=== PATIENT | female | born 1945 | race Caucasian/White ===

== ENCOUNTER 2018-11-03 06:20 | Inpatient (IN) | payer MEDICARE ==
[2018-11-03] MEDS ORDERED: methylPREDNISolone SOD SUCCI 125 MG/2 ML VIAL IV STA (06:25)
[2018-11-03 06:39] LABS: Basophils # (A) 0.1 k/uL (0-0.2); Basophils % (A) 1 %; Eosinophils # (A) 0.3 k/uL (0-0.7); Eosinophils % (A) 3 %; HCT 39.3 % (34.0-46.0); HGB 12.9 gm/dL (11.4-16.0); Lymphocytes # (A) 2.8 k/uL (1.0-4.8); Lymphocytes % (A) 22 %; MCH 29.5 pg (25.0-35.0); MCHC 32.9 g/dL (31.0-37.0); MCV 89.6 fL (80.0-100.0); Mean Platelet Volume 7.4; Monocytes # (A) 0.6 k/uL (0-1.0); Monocytes % (A) 5 %; Neutrophils # (A) 8.7 k/uL (1.3-7.7); Neutrophils % (A) 69 %; Platelet Count 221 k/uL (150-450); RBC 4.39 m/uL (3.80-5.40); RDW 14.7 % (11.5-15.5); WBC 12.6 k/uL (3.8-10.6)
[2018-11-03] MEDS ORDERED: IPRATROPIUM-ALBUTEROL 3 ML NEB INHALATION STA (06:41)
--- NOTE | 2018-11-03 06:45 | ED ---
General Adult HPI <Pavel Severino - Last Filed: 11/03/18 07:42> - General Source: patient, EMS, RN notes reviewed Mode of arrival: EMS Limitations: no limitations <Yvan Bustillo - Last Filed: 11/03/18 07:59> - General Chief complaint: Shortness of Breath Stated complaint: JOSH Time Seen by Provider: 11/03/18 06:25 - History of Present Illness Initial comments: 73-year-old female with a past medical history of diabetes mellitus, hyperlipidemia, hypertension, new diagnosis of COPD presents to the emergency department for shortness of breath. Patient states that around 2 AM or about 4 hours ago she started to feel short of breath. States she feels like she cannot get a full breath. Denies any chest pain. States that since that time she has been coughing as well but before that has not been coughing. Denies any fevers or chills. States her doctor recently told her she has COPD but she states she did not have any inhalers at home yet.Patient has no other complaints at this time including chest pain, abdominal pain, nausea or vomiting, headache, or visual changes. (Yvan Bustillo) - Related Data Home Medications Medication Instructions Recorded Confirmed Atorvastatin [Lipitor] 40 mg PO DAILY 11/03/18 11/03/18 Benazepril/Hydrochlorothiazide 1 tab PO DAILY 11/03/18 11/03/18 [Benazepril-Hctz 10-12.5 mg Tab] Cholecalciferol [Vitamin D3 (25 1,000 unit PO DAILY 11/03/18 11/03/18 Mcg = 1000 Iu)] Ibuprofen [Motrin] 800 mg PO TID PRN 11/03/18 11/03/18 Omeprazole 20 mg PO DAILY PRN 11/03/18 11/03/18 Solifenacin Succinate [Vesicare] 10 mg PO DAILY 11/03/18 11/03/18 metFORMIN HCL [Glucophage] 500 mg PO HS 11/03/18 11/03/18 Allergies Allergy/AdvReac Type Severity Reaction Status Date / Time No Known Allergies Allergy Verified 11/03/18 07:24 Review of Systems ROS Other: All systems not noted in ROS Statement are negative. <Pavel Severino - Last Filed: 11/03/18 07:42> ROS Other: All systems not noted in ROS Statement are negative. <Yvan Bustillo - Last Filed: 11/03/18 07:59> ROS Statement: Those systems with pertinent positive or pertinent negative responses have been documented in the HPI. Past Medical History Past Medical History: COPD, Diabetes Mellitus, Hyperlipidemia, Hypertension History of Any Multi-Drug Resistant Organisms: None Reported Past Surgical History: Adenoidectomy, Appendectomy, Cholecystectomy, Tonsillectomy Additional Past Surgical History / Comment(s): epidural-back pain Past Psychological History: No Psychological Hx Reported Smoking Status: Former smoker Past Alcohol Use History: Occasional Past Drug Use History: None Reported <Yvan Bustillo - Last Filed: 11/03/18 07:59> General Exam Limitations: no limitations General appearance: alert, in no apparent distress Head exam: Present: atraumatic, normocephalic, normal inspection Eye exam: Present: normal appearance, PERRL, EOMI. Absent: scleral icterus, conjunctival injection, periorbital swelling ENT exam: Present: normal exam, mucous membranes moist Neck exam: Present: normal inspection, full ROM. Absent: tenderness, meningismus, lymphadenopathy Respiratory exam: Present: normal lung sounds bilaterally, wheezes, rhonchi. Absent: respiratory distress, rales, stridor Cardiovascular Exam: Present: normal rhythm, tachycardia, normal heart sounds. Absent: systolic murmur, diastolic murmur, rubs, gallop, clicks Neurological exam: Present: alert Psychiatric exam: Present: normal affect, normal mood <Yvan Bustillo - Last Filed: 11/03/18 07:59> Course Vital Signs 11/03/18 11/03/18 11/03/18 06:21 06:38 07:18 Temperature 98.1 F Pulse Rate 112 H 93 Respiratory 20 36 H Rate Blood Pressure 152/72 O2 Sat by Pulse 97 Oximetry 11/03/18 07:32 Temperature Pulse Rate 99 Respiratory Rate Blood Pressure O2 Sat by Pulse Oximetry EKG Findings - EKG Comments: EKG Findings:: Sinus tachycardia, ventricular rate 110, OR interval 150, QTC 508 <Yvan Bustillo - Last Filed: 11/03/18 07:59> Medical Decision Making - Lab Data Result diagrams: 11/03/18 06:29 11/03/18 06:29 <Pavel Severino - Last Filed: 11/03/18 07:42> - Lab Data Result diagrams: 11/03/18 06:29 11/03/18 06:29 <Yvan Bustillo - Last Filed: 11/03/18 07:59> - Medical Decision Making Patient reexamined and reevaluated by myself, Dr. Severino. Patient is resting in bed on BiPAP. Patient does have mild rales. Patient and family updated on results and plan. I do agree. Findings. This includes diagnostic interpretation. Plan. Case also discussed with Dr. Osman, who will admit covered for Dr. Lora. (Pavel Severino) 73-year-old female with a past medical history of COPD presents to the emergency department for chief of shortness of breath. Patient states around 2 AM she woke up and started to feel that she connected a deep breath. States she was r ecently diagnosed with COPD. Patient initially presents with a respiratory rate of 36 and a heart rate of 112 and does appear short of breath. Patient was started on BiPAP. CBC is unremarkable. CMP did show mild hypokalemia which was replaced as well as hypomagnesemia which was also placed. Chest x-ray showed findings consistent with pulmonary edema and a BNP of 3900. Patient was started on Lasix and Nitro-Bid. Acute resp failure likely secondary to CHF. Possible COPD as well. Dr Severino spoke with Dr Heaton who accepts this admission. Will be admitted for further management. (Yvan Bustillo) - Lab Data Lab Results 11/03/18 11/03/18 11/03/18 Range/Units 06:29 06:29 06:29 WBC 12.6 H (3.8-10.6) k/uL RBC 4.39 (3.80-5.40) m/uL Hgb 12.9 (11.4-16.0) gm/dL Hct 39.3 (34.0-46.0) % MCV 89.6 (80.0-100.0) fL MCH 29.5 (25.0-35.0) pg MCHC 32.9 (31.0-37.0) g/dL RDW 14.7 (11.5-15.5) % Plt Count 221 (150-450) k/uL Neutrophils % 69 % Lymphocytes % 22 % Monocytes % 5 % Eosinophils % 3 % Basophils % 1 % Neutrophils # 8.7 H (1.3-7.7) k/uL Lymphocytes # 2.8 (1.0-4.8) k/uL Monocytes # 0.6 (0-1.0) k/uL Eosinophils # 0.3 (0-0.7) k/uL Basophils # 0.1 (0-0.2) k/uL PT 9.9 (9.0-12.0) sec INR 0.9 (<1.2) APTT 22.6 (22.0-30.0) sec Sodium 141 (137-145) mmol/L Potassium 3.2 L (3.5-5.1) mmol/L Chloride 107 (98-107) mmol/L Carbon Dioxide 21 L (22-30) mmol/L Anion Gap 13 mmol/L BUN 21 H (7-17) mg/dL Creatinine 1.52 H (0.52-1.04) mg/dL Est GFR (CKD-EPI)AfAm 38 (>60 ml/min/1.73 sqM) Est GFR (CKD-EPI)NonAf 33 (>60 ml/min/1.73 sqM) Glucose 162 H (74-99) mg/dL Plasma Lactic Acid Raymon (0.7-2.0) mmol/L Calcium 9.5 (8.4-10.2) mg/dL Magnesium 1.4 L (1.6-2.3) mg/dL Total Bilirubin 0.8 (0.2-1.3) mg/dL AST 19 (14-36) U/L ALT 17 (9-52) U/L Alkaline Phosphatase 57 (38-126) U/L Troponin I (0.000-0.034) ng/mL NT-Pro-B Natriuret Pep pg/mL Total Protein 6.8 (6.3-8.2) g/dL Albumin 4.0 (3.5-5.0) g/dL 11/03/18 11/03/18 11/03/18 Range/Units 06:29 06:29 06:29 WBC (3.8-10.6) k/uL RBC (3.80-5.40) m/uL Hgb (11.4-16.0) gm/dL Hct (34.0-46.0) % MCV (80.0-100.0) fL MCH (25.0-35.0) pg MCHC (31.0-37.0) g/dL RDW (11.5-15.5) % Plt Count (150-450) k/uL Neutrophils % % Lymphocytes % % Monocytes % % Eosinophils % % Basophils % % Neutrophils # (1.3-7.7) k/uL Lymphocytes # (1.0-4.8) k/uL Monocytes # (0-1.0) k/uL Eosinophils # (0-0.7) k/uL Basophils # (0-0.2) k/uL PT (9.0-12.0) sec INR (<1.2) APTT (22.0-30.0) sec Sodium (137-145) mmol/L Potassium (3.5-5.1) mmol/L Chloride (98-107) mmol/L Carbon Dioxide (22-30) mmol/L Anion Gap mmol/L BUN (7-17) mg/dL Creatinine (0.52-1.04) mg/dL Est GFR (CKD-EPI)AfAm (>60 ml/min/1.73 sqM) Est GFR (CKD-EPI)NonAf (>60 ml/min/1.73 sqM) Glucose (74-99) mg/dL Plasma Lactic Acid Raymon 2.6 H* (0.7-2.0) mmol/L Calcium (8.4-10.2) mg/dL Magnesium (1.6-2.3) mg/dL Total Bilirubin (0.2-1.3) mg/dL AST (14-36) U/L ALT (9-52) U/L Alkaline Phosphatase (38-126) U/L Troponin I 0.028 (0.000-0.034) ng/mL NT-Pro-B Natriuret Pep 3890 pg/mL Total Protein (6.3-8.2) g/dL Albumin (3.5-5.0) g/dL Critical Care Time Critical Care Time: Yes Total Critical Care Time: 33 <Yvan Bustillo - Last Filed: 11/03/18 07:59> Disposition <Pavel Severino - Last Filed: 11/03/18 07:42> Is patient prescribed a controlled substance at d/c from ED?: No Time of Disposition: 07:58 <Yvan Bustillo - Last Filed: 11/03/18 07:59> Clinical Impression: Congestive heart failure, Acute respiratory failure Disposition: ADMITTED IP TO THIS HOSP Condition: Fair Referrals: Milo Lora MD [Primary Care Provider] - 1-2 days
[2018-11-03 06:47] LABS: Calcium 9.5 mg/dL (8.4-10.2); INR 0.9 (<1.2); Magnesium 1.4 mg/dL (1.6-2.3); Partial Thromboplastin Time 22.6 sec (22.0-30.0); Potassium 3.2 mmol/L (3.5-5.1); Prothrombin Time 9.9 sec (9.0-12.0); Total Bilirubin 0.8 mg/dL (0.2-1.3); Total Protein 6.8 g/dL (6.3-8.2)
[2018-11-03] MEDS ORDERED: SODIUM CHLORIDE 0.9% 500 ML 500 ML IV STA (06:52)
--- NOTE | 2018-11-03 07:10 | XR ---
EXAM: XR Chest, 1 View CLINICAL HISTORY: Pain TECHNIQUE: Frontal view of the chest. COMPARISON: 01/19/2014 FINDINGS: Lungs: Prominent interstitial markings and peribronchial interstitial thickening noted. Subsegmental perihilar and infrahilar opacities are noted. Pleural space: Unremarkable. No pneumothorax. Heart: Unremarkable. No cardiomegaly. Mediastinum: The trachea is midline. No evidence for significant adenopathy. Mild atherosclerotic calcification of the aortic arch is stable. Bones/joints: Unremarkable. IMPRESSION: 1. Prominent interstitial markings and peribronchial interstitial thickening noted. Findings are most consistent with pulmonary edema pattern. Please correlate clinically. 2. Subsegmental perihilar and infrahilar opacities are noted. Suspect asymmetric edema. No lobar consolidation.
[2018-11-03] MEDS ORDERED: MAGNESIUM SULFATE-D5W PMX 1 GM in DEXTROSE/WATER 1 100ML.BAG IVPB ONE (07:32)
[2018-11-03] MEDS ORDERED: FUROSEMIDE 10 MG/ML 4 ML VIAL IV STA (07:33)
[2018-11-03] MEDS ORDERED: POTASSIUM CHLORIDE 20 MEQ in WATER FOR INJECTION 1 100ML.BAG IVPB STA (07:33)
[2018-11-03] MEDS ORDERED: NITROGLYCERIN OINT 1 INCH/GM PACKET TOPICAL STA (07:34)
[2018-11-03] MEDS ORDERED: NALOXONE 0.4 MG/ML 1 ML VIAL IV PRN (07:44)
[2018-11-03] MEDS ORDERED: MORPHINE SULFATE 4 MG/ML SYRINGE IVP STA (07:51)
[2018-11-03 10:12] VITALS: BMI 36.6
[2018-11-03] MEDS: IPRATROPIUM-ALBUTEROL 3 ML NEB INHALATION SCH ×3 (10:17→19:45)
[2018-11-03] MEDS: FUROSEMIDE 10 MG/ML 4 ML VIAL IV SCH ×2 (10:19→20:37)
[2018-11-03 11:47] LABS: Glucose,Whole Blood 186 mg/dL (75-99)
[2018-11-03] MEDS ORDERED: PANTOPRAZOLE 40 MG TABLET PO PRN (12:00)
--- NOTE | 2018-11-03 12:57 | P.HPIM ---
History of Present Illness H&P Date: 11/03/18 Chief Complaint: Acute hypoxic respiratory failure 73-year-old female with PMH of diabetes mellitus, hypertension, hyperlipidemia, history of COPD with 22-82-csom-year history quit 15 years ago presents the ED for shortness of breath. Patient states she woke up around 4 AM this morning feeling short of breath and wheezing. Patient was attempting to walk to the washroom and she felt that she couldn't catch her breath. Patient states that she is usually able to walk 1 bl ock before feeling short of breath. Patient reports that she can barely walk from her bedroom to her living room at this time. Patient does not have any stairs at home. Patient denies any lower extremity edema. Patient describes sleeping on many pillows at night but denies any orthopnea. She denies any headache, lower extremity edema, nausea or vomiting, fever or chills, cough, chest pain, palpitations, changes in urination or bowel habits. No changes in appetite or weight. Patient denies any dizziness, numbness/weakness/tingling of the extremities. In the ED, patient was placed on BiPAP to maintain O2 saturation above 90%. Her vital signs are otherwise stable. CBC showed a mild leukocytosis of 12.6. CMP showed potassium of 3.2, bicarbonate of 21, BUN of 21, creatinine of 1.52 and glucose of 162. Lactic acid was 2.6. Magnesium was 1.4. Troponin was 0.028, EKG showing sinus tachycardia with PACs. BNP was 3890, chest x-ray showing signs of pulmonary edema. Patient is admitted for CHF and possible COPD exacerbation. Review of Systems Pertinent positives and negatives as discussed in HPI, a complete review of systems was performed and all other systems are negative. Past Medical History Past Medical History: COPD, Diabetes Mellitus, Hyperlipidemia, Hypertension History of Any Multi-Drug Resistant Organisms: None Reported Past Surgical History: Adenoidectomy, Appendectomy, Cholecystectomy, Tonsillectomy Additional Past Surgical History / Comment(s): epidural-back pain Past Psychological History: No Psychological Hx Reported Smoking Status: Former smoker Past Alcohol Use History: Occasional Past Drug Use History: None Reported Medications and Allergies Home Medications Medication Instructions Recorded Confirmed Type Atorvastatin [Lipitor] 40 mg PO DAILY 11/03/18 11/03/18 History Benazepril/Hydrochlorothiazide 1 tab PO DAILY 11/03/18 11/03/18 History [Benazepril-Hctz 10-12.5 mg Tab] Cholecalciferol [Vitamin D3 (25 1,000 unit PO DAILY 11/03/18 11/03/18 History Mcg = 1000 Iu)] Ibuprofen [Motrin] 800 mg PO TID PRN 11/03/18 11/03/18 History Omeprazole 20 mg PO DAILY PRN 11/03/18 11/03/18 History Solifenacin Succinate [Vesicare] 10 mg PO DAILY 11/03/18 11/03/18 History metFORMIN HCL [Glucophage] 500 mg PO HS 11/03/18 11/03/18 History Allergies Allergy/AdvReac Type Severity Reaction Status Date / Time No Known Allergies Allergy Verified 11/03/18 07:24 Physical Exam Vitals: Vital Signs Temp Pulse Pulse Resp BP BP Pulse Ox 11/03/18 11:45 92 11/03/18 11:35 88 11/03/18 11:07 98.1 F 92 18 124/61 97 11/03/18 11:03 22 11/03/18 09:44 67 18 137/63 100 11/03/18 09:07 92 18 175/68 98 11/03/18 07:32 99 11/03/18 07:18 93 11/03/18 06:38 36 H 11/03/18 06:21 98.1 F 112 H 20 152/72 97 Intake and Output 11/02/18 11/03/18 11/03/18 22:59 06:59 14:59 Other: Weight 93.8 kg General: [non toxic], [no distress], [appears at stated age] Derm: [warm], [dry] Head: [atraumatic], [normocephalic], [symmetric] Eyes: [EOMI], [no lid lag], [anicteric sclera] Mouth: [no lip lesion], [mucus membranes moist] Cardiovascular: [S1S2 reg], [no murmur], [positive posterior tibial pulse bilateral] Lungs: [Decreased breath sounds bilateral], [Rales at the bases] , [no accessory muscle use] Abdominal: [soft], [ nontender to palpation], [no guarding], [no appreciable organomegaly] Ext: [no gross muscle atrophy], [no edema], [no contractures] Neuro: [ CN II-XI grossly intact], [no focal neuro deficits] Psych: [Alert], [oriented], [appropriate affect] Results CBC & Chem 7: 11/03/18 06:29 11/03/18 06:29 Labs: Abnormal Lab Results - Last 24 Hours (Table) 11/03/18 11/03/18 11/03/18 Range/Units 06:29 06:29 06:29 WBC 12.6 H (3.8-10.6) k/uL Neutrophils # 8.7 H (1.3-7.7) k/uL Potassium 3.2 L (3.5-5.1) mmol/L Carbon Dioxide 21 L (22-30) mmol/L BUN 21 H (7-17) mg/dL Creatinine 1.52 H (0.52-1.04) mg/dL Glucose 162 H (74-99) mg/dL POC Glucose (mg/dL) (75-99) mg/dL Plasma Lactic Acid Raymon 2.6 H* (0.7-2.0) mmol/L Magnesium 1.4 L (1.6-2.3) mg/dL 11/03/18 11/03/18 Range/Units 10:07 11:45 WBC (3.8-10.6) k/uL Neutrophils # (1.3-7.7) k/uL Potassium (3.5-5.1) mmol/L Carbon Dioxide (22-30) mmol/L BUN (7-17) mg/dL Creatinine (0.52-1.04) mg/dL Glucose (74-99) mg/dL POC Glucose (mg/dL) 186 H (75-99) mg/dL Plasma Lactic Acid Raymon 5.6 H* (0.7-2.0) mmol/L Magnesium (1.6-2.3) mg/dL Assessment and Plan Assessment: Assessment and Plan Acute hypoxic respiratory failure from pulmonary edema possibly due to CHF with component of COPD Pulmonary edema due to possible CHF exacerbation COPD exacerbation Lactic acidosis Leukocytosis Hypokalemia Diabetes mellitus with hyperglycemia Hypertension Hyperlipidemia Acute kidney injury Initially on BiPAP in the ED, transitioned to nasal cannula. BNP 3890 with chest x-ray showing signs of pulmonary edema. Troponin is 0.028 with EKG showing sinus tachycardia and PACs. Plans: O2 per NC/BiPAP to maintain O2 saturation greater than 92%. Trend troponin/EKG to rule out ACS. Start IV Lasix for diuresis. Optimize COPD medications. Follow cardiology consultation. As seen on chest x-ray. BNP 3890. No previous diagnosis. Plans: Start Lasix 40 mg IV twice a day. Keep potassium greater than 4 and magnesium greater than 2. Strict intake and output. Daily weights. Follow-up echocardiogram. Follow cardiology consultation. History of smoker. Plans: DuoNeb every 6 hours scheduled for shortness of breath and wheezing. Given Solu-Medrol in the ED, continue prednisone for a total of 5 days. Lactic acid 2.6-5.6. Likely due to dehydration. No concerns for infection at this time, patient is afebrile. Plans: Given bolus in the ED. Repeat lactic acid. Caution with fluid given pulmonary edema. Leukocytosis of 12.6 with neutrophilia. No signs of infection, patient is afebrile. Plans: Continue to monitor. Repeat CBC in the morning. Potassium 3.2. Plans: Replace via protocol. Repeat BMP in the morning. [id number] glucose 186. Hyperglycemia likely due to steroid use. Plans: Insulin sliding scale. Regular Accu-Cheks. Hypoglycemic precautions. BP 124/61. Plans: Hold been as appropriate and hydrochlorothiazide due to acute kidney injury. Monitor vitals, adjust medications as necessary. Plans: Continue Lipitor. BUN 21, creatinine 1.52. Patient is not aware of chronic kidney disease. Plans: Avoid nephrotoxins. Encourage hydration by mouth. Caution with fluid given pulmonary edema. Repeat BMP in the morning. DVT prophylaxis: [Heparin] Discussed with: [Patient] Anticipated discharge: [2-3 days] Anticipated discharge place: [Home ] A total of [45] minutes was spent on the care of this complex patient more than 50% of the time was spent in counseling and care coordination. Patient would not like her son Melquiades Benz to be decision-maker in the case that she can't make decisions for herself. Patient reiterates wanting to remain full code but would like time to think about it and will let me know tomorrow.
[2018-11-03 13:06] LABS: HCT 37.9 % (34.0-46.0); HGB 12.3 gm/dL (11.4-16.0); MCH 29.9 pg (25.0-35.0); MCHC 32.6 g/dL (31.0-37.0); MCV 91.9 fL (80.0-100.0); Mean Platelet Volume 7.8; Platelet Count 211 k/uL (150-450); RBC 4.13 m/uL (3.80-5.40); RDW 13.4 % (11.5-15.5); WBC 16.6 k/uL (3.8-10.6)
[2018-11-03] MEDS: METOPROLOL SUCCINATE (ER) 25 MG TAB.ER.24H PO SCH (15:15)
[2018-11-03 16:49] LABS: Glucose,Whole Blood 174 mg/dL (75-99)
[2018-11-03] MEDS: INSULIN ASPART (NovoLOG) 100 UNIT/ML VIAL SQ SCH ×2 (16:54→20:37)
[2018-11-03] MEDS: HYDROcodone/APAP 10-325MG 1 EACH TAB PO PRN ×2 (17:17→23:11)
[2018-11-03 20:32] LABS: Glucose,Whole Blood 180 mg/dL (75-99)
[2018-11-03] MEDS: HEPARIN SODIUM,PORCINE 5,000 UNIT/ML 1 ML VIAL SQ SCH (20:37)
--- NOTE | 2018-11-03 22:53 | CONS ---
CONSULTATION CHIEF COMPLAINT: Shortness of breath. This is a 73-year-old lady with multiple medical problems including hypertension, diabetes and dyslipidemia who presented to hospital with sudden onset shortness of breath. She states that she woke up early this morning with shortness of breath, gradually got worse, came in and is admitted to hospital for the same. There is no fever, no chills, no cough, no productive sputum. No leg edema. No PND or orthopnea. The patient has history of smoking but quit smoking many years ago and is currently not on any nebulizers or breathing treatments. There is no history of coronary artery disease. There is no history of congestive heart failure. EKG on this admission reveals sinus tachycardia with nonspecific ST-T wave changes. Chest x-ray showed changes suggestive of pulmonary edema. One set of troponin is negative and BNP is elevated at 3890. BUN is 21, creatinine is 1.5. Potassium is low at 3.2. PAST MEDICAL HISTORY: Significant for hypertension, diabetes, dyslipidemia. MEDICATIONS: Medications at home include omeprazole, Motrin, metformin and benazepril, hydrochlorothiazide and Lipitor. ALLERGIES: There are no known drug allergies. FAMILY HISTORY: Negative for premature coronary artery disease. SOCIAL HISTORY: Negative for current smoking, EtOH abuse, or drug abuse. REVIEW OF SYSTEMS: HEENT: Unremarkable. CARDIAC: As described above. RESPIRATORY: As described above. GI: Negative. GENITOURINARY: Negative. ALLERGY/IMMUNOLOGY: Negative. SKIN: Negative. MUSCULOSKELETAL: Significant for arthritis. PSYCHOSOCIAL; Negative. ENDOCRINE: Negative. DERMATOLOGICAL: Negative. CONSTITUTIONAL: Negative. ONCOLOGICAL: Negative. PEDIATRIC PHYSICAL THERAPIST: Negative. Rest of the system review is not relevant. EXAM: Comfortable at rest. Heart rate is 90 beats per minute. Blood pressure is 120/61, respiratory rate 18. Chest exam reveals diminished air entry with bilateral rhonchi. Heart exam reveals first and second heart sounds. No gallop. No murmur. No rub. Abdomen is soft, nontender. Exam of extremities did not reveal any edema. Peripheral pulses are felt. ASSESSMENT: 1. Acute onset pulmonary edema. 2. Hypertension. 3. Diabetes. 4. Dyslipidemia. 5. Renal insufficiency. PLAN: Will treat the patient with IV Lasix. Obtain a 2D echo to assess LV function. Obtain a D-dimer to rule out pulmonary embolism given the sudden onset shortness of breath. Obtain serial troponins to rule out myocardial infarction. If the D-dimer is high, we will pursue workup for pulmonary embolism. If the tropes are elevated, we will pursue workup for coronary artery disease. Will look at the echo to see what her LV function and wall motion are like. Will add beta blockers to her and try nebulizers also to see if her symptoms would improve as air entry is quite diminished on both sides. Thank you for giving me the privilege to participate in the care of this pleasant lady. TORO / BRYCE: [id number] /
[2018-11-04] MEDS: IPRATROPIUM-ALBUTEROL 3 ML NEB INHALATION SCH ×4 (03:18→18:31)
[2018-11-04 06:00] LABS: Basophils % (A) 0 %; Eosinophils % (A) 0 %; HCT 32.7 % (34.0-46.0); HGB 10.9 gm/dL (11.4-16.0); Lymphocytes # (A) 1.7 k/uL (1.0-4.8); Lymphocytes % (A) 13 %; MCH 29.7 pg (25.0-35.0); MCHC 33.4 g/dL (31.0-37.0); MCV 88.9 fL (80.0-100.0); Mean Platelet Volume 7.8; Monocytes # (A) 1.2 k/uL (0-1.0); Monocytes % (A) 9 %; Neutrophils # (A) 10.1 k/uL (1.3-7.7); Neutrophils % (A) 77 %; Platelet Count 220 k/uL (150-450); RBC 3.67 m/uL (3.80-5.40); RDW 14.1 % (11.5-15.5); WBC 13.2 k/uL (3.8-10.6)
[2018-11-04 06:07] LABS: Calcium 9.3 mg/dL (8.4-10.2); Potassium 3.5 mmol/L (3.5-5.1)
[2018-11-04 06:09] LABS: Glucose,Whole Blood 113 mg/dL (75-99)
[2018-11-04] MEDS: INSULIN ASPART (NovoLOG) 100 UNIT/ML VIAL SQ SCH ×4 (06:24→21:28)
[2018-11-04] MEDS: HYDROcodone/APAP 10-325MG 1 EACH TAB PO PRN ×2 (08:02→23:31)
[2018-11-04] MEDS: predniSONE 50 MG TAB PO SCH (08:04)
[2018-11-04] MEDS: ATORVASTATIN 40 MG TAB PO SCH (08:04)
[2018-11-04] MEDS: FUROSEMIDE 10 MG/ML 4 ML VIAL IV SCH ×2 (08:04→21:28)
[2018-11-04] MEDS: METOPROLOL SUCCINATE (ER) 25 MG TAB.ER.24H PO SCH (08:04)
[2018-11-04] MEDS: TROSPIUM CHLORIDE 20 MG TABLET PO SCH ×2 (08:04→21:28)
[2018-11-04] MEDS: HEPARIN SODIUM,PORCINE 5,000 UNIT/ML 1 ML VIAL SQ SCH (08:04)
[2018-11-04 09:40] LABS: Creatine Kinase MB 3.9 ng/mL (0.0-2.4)
[2018-11-04 09:55] LABS: Troponin I 0.233 ng/mL (0.000-0.034)
--- NOTE | 2018-11-04 10:57 | P.PN ---
Subjective Progress Note Date: 11/04/18 Principal diagnosis: Shortness of breath Patient was seen and examined. No acute events overnight. Patient reports considerable improvement in her breathing since admission. Not quite back to baseline. Patient denies any chest pain or palpitations. No nausea or vomiting. No fever or chills. She does complain of chronic lower back pain radiating into the right lower extremity, related to sciatica, has been following orthopedic surgery for injections. No bladder or bowel incontinence. No saddle anesthesia. Objective - Vital Signs Vital signs: Vital Signs Temp 97.5 F L 11/04/18 08:00 Pulse 84 11/04/18 08:10 Resp 18 11/04/18 08:00 BP 114/76 11/04/18 08:00 Pulse Ox 98 11/04/18 08:00 Intake & Output 11/03/18 11/04/18 11/04/18 18:59 06:59 18:59 Intake Total 222 Output Total 650 700 Balance 222 -650 -700 Intake: Oral 222 Output: Urine 650 700 Other: Voiding Method Toilet # Voids 1 - Exam General: [non toxic], [no distress], [appears at stated age] Derm: [warm], [dry] Head: [atraumatic], [normocephalic], [symmetric] Eyes: [EOMI], [no lid lag], [anicteric sclera] Mouth: [no lip lesion], [mucus membranes moist] Cardiovascular: [S1S2 reg], [no murmur], [positive DP pulse bilateral] Lungs: [Decreased breath sounds bilateral], [no rales] , [no accessory muscle use] Abdominal: [soft], [ nontender to palpation], [no guarding], [no appreciable organomegaly] Ext: [no gross muscle atrophy], [no edema], [no contractures] Neuro: [no focal neuro deficits] Psych: [Alert], [oriented], [appropriate affect] - Labs CBC & Chem 7: 11/04/18 05:43 11/04/18 05:43 Labs: Abnormal Lab Results - Last 24 Hours (Table) 11/03/18 11/03/18 11/03/18 Range/Units 10:07 10:07 10:07 WBC 16.6 H (3.8-10.6) k/uL RBC (3.80-5.40) m/uL Hgb (11.4-16.0) gm/dL Hct (34.0-46.0) % Neutrophils # (1.3-7.7) k/uL Monocytes # (0-1.0) k/uL D-Dimer 1.57 H (<0.60) mg/L FEU BUN (7-17) mg/dL Creatinine (0.52-1.04) mg/dL Glucose (74-99) mg/dL POC Glucose (mg/dL) (75-99) mg/dL Plasma Lactic Acid Raymon (0.7-2.0) mmol/L CK-MB (CK-2) (0.0-2.4) ng/mL Troponin I 0.157 H* (0.000-0.034) ng/mL 11/03/18 11/03/18 11/03/18 Range/Units 11:45 13:50 16:46 WBC (3.8-10.6) k/uL RBC (3.80-5.40) m/uL Hgb (11.4-16.0) gm/dL Hct (34.0-46.0) % Neutrophils # (1.3-7.7) k/uL Monocytes # (0-1.0) k/uL D-Dimer (<0.60) mg/L FEU BUN (7-17) mg/dL Creatinine (0.52-1.04) mg/dL Glucose (74-99) mg/dL POC Glucose (mg/dL) 186 H 174 H (75-99) mg/dL Plasma Lactic Acid Raymon 5.6 H* (0.7-2.0) mmol/L CK-MB (CK-2) (0.0-2.4) ng/mL Troponin I (0.000-0.034) ng/mL 11/03/18 11/03/18 11/03/18 Range/Units 17:14 20:21 20:39 WBC (3.8-10.6) k/uL RBC (3.80-5.40) m/uL Hgb (11.4-16.0) gm/dL Hct (34.0-46.0) % Neutrophils # (1.3-7.7) k/uL Monocytes # (0-1.0) k/uL D-Dimer (<0.60) mg/L FEU BUN (7-17) mg/dL Creatinine (0.52-1.04) mg/dL Glucose (74-99) mg/dL POC Glucose (mg/dL) 180 H (75-99) mg/dL Plasma Lactic Acid Raymon 4.4 H* 3.0 H* (0.7-2.0) mmol/L CK-MB (CK-2) (0.0-2.4) ng/mL Troponin I (0.000-0.034) ng/mL 11/04/18 11/04/18 11/04/18 Range/Units 00:10 05:43 05:43 WBC 13.2 H (3.8-10.6) k/uL RBC 3.67 L (3.80-5.40) m/uL Hgb 10.9 L (11.4-16.0) gm/dL Hct 32.7 L (34.0-46.0) % Neutrophils # 10.1 H (1.3-7.7) k/uL Monocytes # 1.2 H (0-1.0) k/uL D-Dimer (<0.60) mg/L FEU BUN 31 H (7-17) mg/dL Creatinine 1.51 H (0.52-1.04) mg/dL Glucose 121 H (74-99) mg/dL POC Glucose (mg/dL) (75-99) mg/dL Plasma Lactic Acid Raymon (0.7-2.0) mmol/L CK-MB (CK-2) (0.0-2.4) ng/mL Troponin I 0.248 H* (0.000-0.034) ng/mL 11/04/18 11/04/18 Range/Units 05:43 06:01 WBC (3.8-10.6) k/uL RBC (3.80-5.40) m/uL Hgb (11.4-16.0) gm/dL Hct (34.0-46.0) % Neutrophils # (1.3-7.7) k/uL Monocytes # (0-1.0) k/uL D-Dimer (<0.60) mg/L FEU BUN (7-17) mg/dL Creatinine (0.52-1.04) mg/dL Glucose (74-99) mg/dL POC Glucose (mg/dL) 113 H (75-99) mg/dL Plasma Lactic Acid Raymon (0.7-2.0) mmol/L CK-MB (CK-2) 3.9 H (0.0-2.4) ng/mL Troponin I 0.233 H* (0.000-0.034) ng/mL Assessment and Plan Assessment: Assessment and Plan Acute hypoxic respiratory failure from pulmonary edema possibly due to CHF with component of COPD Troponin elevation Pulmonary edema due to possible CHF exacerbation COPD exacerbation Leukocytosis Diabetes mellitus with hyperglycemia Hypertension Hyperlipidemia Acute kidney injury Resolved: Hypokalemia, lactic acidosis Initially on BiPAP in the ED, transitioned to nasal cannula. BNP 3890 with chest x-ray showing signs of pulmonary edema. Troponin is 0.028, 0.157, 0.248, 0.233 with EKG showing sinus tachycardia and PACs. Elevated d-dimer. Plans: O2 per NC/BiPAP to maintain O2 saturation greater than 92%. Cardiology evaluating elevated troponins, echocardiogram pending, nothing by mouth for possible intervention. Continue IV Lasix for diuresis. Optimize COPD medications. Elevated d-dimer, order VQ scan to rule out PE. Troponin is 0.028, 0.157, 0.248, 0.233 with EKG showing sinus tachycardia and PACs. Plans: Telemetry monitoring. Start aspirin. Continue Lipitor. Continue beta roberta. Follow-up echocardiogram. Follow-up cardiology consultation. As seen on chest x-ray. BNP 3890. No previous diagnosis. Plans: Continue Lasix 40 mg IV twice a day. Keep potassium greater than 4 and magnesium greater than 2. Strict intake and output. Daily weights. Follow-up echocardiogram. Follow cardiology consultation. History of smoker. Plans: DuoNeb every 6 hours scheduled for shortness of dipesh th and wheezing. Given Solu-Medrol in the ED, continue prednisone for a total of 5 days. Leukocytosis of 12.6-13.2 with neutrophilia. No signs of infection, patient is afebrile. Likely from steroid use. Plans: Continue to monitor. Repeat CBC in the morning. Groxx-oj-ranu glucose 113. Hyperglycemia likely due to steroid use. Plans: Insulin sliding scale. Regular Accu-Cheks. Hypoglycemic precautions. BP 114/76. Plans: Hold benazepril and hydrochlorothiazide due to acute kidney injury. Monitor vitals, adjust medications as necessary. Plans: Continue Lipitor. BUN 21-31, creatinine 1.52-1.51. Patient is not aware of chronic kidney disease. Plans: Avoid nephrotoxins. Encourage hydration by mouth. Caution with fluid given pulmonary edema. Repeat BMP in the morning. [Patient admitted for acute hypoxic respiratory failure from pulmonary edema and COPD, started on IV diuresis. Cardiology consulted for elevated troponins, echocardiogram pending. Found to have elevated d-dimer, VQ scan ordered. She is pending clinical improvement. Likely DC in 1-2 days.]
--- NOTE | 2018-11-04 11:01 | ECHOF ---
Referral Reason:CHF on CXR MEASUREMENTS -------- HEIGHT: 160.0 cm WEIGHT: 93.4 kg BP: RVIDd: 2.5 cm (< 3.3) IVSd: 1.0 cm (0.6 - 1.1) LVIDd: 5.6 cm (3.9 - 5.3) LVPWd: 1.0 cm (0.6 - 1.1) IVSs: 1.4 cm LVIDs: 4.2 cm LVPWs: 1.5 cm LA Diam: 4.8 cm (2.7 - 3.8) LAESV Index (A-L): 46.29 ml/m Ao Diam: 2.8 cm (2.0 - 3.7) AV Cusp: 1.7 cm (1.5 - 2.6) LA Diam: 3.5 cm (2.7 - 3.8) MV EXCURSION: 14.230 mm (> 18.000) MV EF SLOPE: 68 mm/s (70 - 150) EPSS: 1.6 cm MV E Chalo: 1.22 m/s MV DecT: 154 ms MV A Chalo: 0.98 m/s MV E/A Ratio: 1.25 RAP: 5.00 mmHg RVSP: 50.62 mmHg FINDINGS -------- Undetermined rhythm. This was a techncally difficult study with suboptimal views, , Lumason utilized for enhancement of im ages. The left ventricular size is normal. Left ventricular wall thickness is normal. There is severe g lobal hypokinesis of LV . Overall left ventricular systolic function is severely impaired with, an EF between 20 - 25 %. The diastolic filling pattern indicates impaired relaxation 56.44. The right ventricle is normal in size. The left atrium is markedly dilated. LA is severely dilated >40 ml/m2 The right atrial size is normal. 5.0mg OF Lumason UTLIZED: 2 OR MORE WALL SEGMENTS NOT VISUALIZED. There is mild aortic valve sclerosis. There is no evidence of aortic regurgitation. Mild mitral annular calcification present. Moderate mitral regurgitation is present. Mild tricuspid regurgitation present. There is moderate pulmonary hypertension. The right ventric ular systolic pressure, as measured by Doppler, is 50.62mmHg. There is no pulmonic regurgitation present. The aortic root size is normal. There is no pericardial effusion. CONCLUSIONS -------- 1. Undetermined rhythm. 2. This was a techncally difficult study with suboptimal views, , Lumason utilized for enhancement of images. 3. The left ventricular size is normal. 4. Left ventricular wall thickness is normal. 5. There is severe global hypokinesis of LV . 6. Overall left ventricular systolic function is severely impaired with, an EF between 20 - 25 %. 7. The diastolic filling pattern indicates impaired relaxation 56.44.. 8. The right ventricle is normal in size. 9. The left atrium is markedly dilated. 10. LA is severely dilated >40 ml/m2 11. The right atrial size is normal. 12. 5.0mg OF Lumason UTLIZED: 2 OR MORE WALL SEGMENTS NOT VISUALIZED. 13. There is mild aortic valve sclerosis. 14. Mild mitral annular calcification present. 15. Moderate mitral regurgitation is present. 16. Mild tricuspid regurgitation present. 17. There is moderate pulmonary hypertension. 18. The right ventricular systolic pressure, as measured by Doppler, is 50.62mmHg. 19. There is no pulmonic regurgitation present. 20. The aortic root size is normal. 21. There is no pericardial effusion. PAYROLL AUDITOR: Phoebe Gong RDCS
--- NOTE | 2018-11-04 12:43 | NM ---
EXAMINATION TYPE: NM pul vent and perfuse DATE OF EXAM: 11/04/2018 COMPARISON: X-ray 11/03/2018 HISTORY: Hypoxia TECHNIQUE: Utilizing inhalation of 41.7 mCi Tc 99m DTPA aerosol and intravenous injection of 3.93 mC i of Tc 99m MAA, ventilation and perfusion images are acquired post injection in multiple projections . FINDINGS: Exam is limited due to diminished uptake and ventilation images. Suggestion of an matched defect invo lving the posterior right lower lobe and bilateral lung bases with corresponding x-ray abnormality co mpatible with triple match. IMPRESSION: Intermediate probability for pulmonary embolism.
[2018-11-04] MEDS: ASPIRIN 81 MG PO SCH (13:27)
[2018-11-04] MEDS: APIXABAN 5 MG TAB PO SCH ×2 (13:41→21:28)
[2018-11-04] MEDS: SACUBITRIL/VALSARTAN 24 MG-26 MG TABLET PO SCH ×2 (14:11→21:28)
--- NOTE | 2018-11-04 14:45 | P.PN ---
Subjective Progress Note Date: 11/04/18 This is a 73-year-old female with multiple medical problems including hypertension, diabetes, hyperlipidemia, presented to the hospital with symptoms of shortness of breath. Chest x-ray showed congestive cardiac failure, patient was initiated on IV Lasix. A d-dimer was ordered yesterday by Dr. Pinedo which came back to be 1.5 today subsequently patient underwent a VQ scan which revealed intermediate probability for pulmonary embolism. Patient overall is been diuresing well on the IV Lasix, continues to feel short of breath but she states that it's significantly improved from her presentation here. Echocardiogram with Doppler study was performed which revealed an ejection fraction of 20-25%, moderate mitral regurgitation, moderate pulmonary hypertension. Objective - Vital Signs Vital signs: Vital Signs Temp 97.5 F L 11/04/18 08:00 Pulse 82 11/04/18 13:08 Resp 18 11/04/18 12:00 BP 114/76 11/04/18 08:00 Pulse Ox 98 11/04/18 08:00 Intake & Output 11/03/18 11/04/18 11/04/18 18:59 06:59 18:59 Intake Total 222 Output Total 650 700 Balance 222 -650 -700 Intake: Oral 222 Output: Urine 650 700 Other: Voiding Method Toilet # Voids 1 - Exam PHYSICAL EXAMINATION: GENERAL: 73-year-old female in no acute distress at the time of my examination HEENT: Head is atraumatic, normocephalic. Pupils equal, round. Sclera anicteric. Conjunctiva are clear. Mucous membranes of the mouth are moist. Neck is supple. There is no elevated jugular venous pressure. No Carotid bruit is heard. HEART EXAMINATIONHeart S1 S2 1 systolic murmur is heard.] CHEST EXAMINATION Lungs reveal diminished air entry to bilateral bases. ABDOMEN: [ Soft, nontender. Bowel sounds are heard. No organomegaly noted]. EXTREMITIES:[ 2+ peripheral pulses with no evidence of peripheral edema and no calf tenderness noted NEUROLOGIC [patient is awake, alert and orientedX3 . - Labs CBC & Chem 7: 11/04/18 05:43 11/04/18 05:43 Labs: Abnormal Lab Results - Last 24 Hours (Table) 11/03/18 11/03/18 11/03/18 Range/Units 16:46 17:14 20:21 WBC (3.8-10.6) k/uL RBC (3.80-5.40) m/uL Hgb (11.4-16.0) gm/dL Hct (34.0-46.0) % Neutrophils # (1.3-7.7) k/uL Monocytes # (0-1.0) k/uL BUN (7-17) mg/dL Creatinine (0.52-1.04) mg/dL Glucose (74-99) mg/dL POC Glucose (mg/dL) 174 H 180 H (75-99) mg/dL Plasma Lactic Acid Raymon 4.4 H* (0.7-2.0) mmol/L CK-MB (CK-2) (0.0-2.4) ng/mL Troponin I (0.000-0.034) ng/mL 11/03/18 11/04/18 11/04/18 Range/Units 20:39 00:10 05:43 WBC 13.2 H (3.8-10.6) k/uL RBC 3.67 L (3.80-5.40) m/uL Hgb 10.9 L (11.4-16.0) gm/dL Hct 32.7 L (34.0-46.0) % Neutrophils # 10.1 H (1.3-7.7) k/uL Monocytes # 1.2 H (0-1.0) k/uL BUN (7-17) mg/dL Creatinine (0.52-1.04) mg/dL Glucose (74-99) mg/dL POC Glucose (mg/dL) (75-99) mg/dL Plasma Lactic Acid Raymon 3.0 H* (0.7-2.0) mmol/L CK-MB (CK-2) (0.0-2.4) ng/mL Troponin I 0.248 H* (0.000-0.034) ng/mL 11/04/18 11/04/18 11/04/18 Range/Units 05:43 05:43 06:01 WBC (3.8-10.6) k/uL RBC (3.80-5.40) m/uL Hgb (11.4-16.0) gm/dL Hct (34.0-46.0) % Neutrophils # (1.3-7.7) k/uL Monocytes # (0-1.0) k/uL BUN 31 H (7-17) mg/dL Creatinine 1.51 H (0.52-1.04) mg/dL Glucose 121 H (74-99) mg/dL POC Glucose (mg/dL) 113 H (75-99) mg/dL Plasma Lactic Acid Raymon (0.7-2.0) mmol/L CK-MB (CK-2) 3.9 H (0.0-2.4) ng/mL Troponin I 0.233 H* (0.000-0.034) ng/mL Assessment and Plan Plan: Assessment and plan #1 systolic congestive heart failure acute on chronic #2 hypertension #3 diabetes #4 hyperlipidemia #5 renal insufficiency #6 intermediate probability for PE on VQ scan Plan We will initiate patient on Eliquis per PE protocol, we will also request a venous duplex study be performed to rule out DVT. Continue to diurese the patient with IV Lasix. We will also add Entresto to the medication regime. Patient will at some point require cardiac catheterization, to determine the cause of her cardiomyopathy. At this point in time we will continue to diurese. DNP note has been reviewed, I agree with a documented findings and plan of care. Patient was seen and examined.
--- NOTE | 2018-11-04 15:52 | US ---
EXAMINATION TYPE: US venous doppler duplex LE DATE OF EXAM: 11/04/2018 3:40 PM COMPARISON: US CLINICAL HISTORY: r/o dvt. known PE, right leg pain. SIDE PERFORMED: Bilateral TECHNIQUE: The lower extremity deep venous system is examined utilizing real time linear array sonog lashell with graded compression, doppler sonography and color-flow sonography. VESSELS IMAGED: External Iliac Vein (EIV) Common Femoral Vein Deep Femoral Vein Greater Saphenous Vein * Femoral Vein Popliteal Vein Small Saphenous Vein * Proximal Calf Veins (* superficial vessels) Right Leg: Negative for DVT Left Leg: Negative for DVT IMPRESSION: 1. No diagnostic evidence of DVT as visualized.
[2018-11-04 16:59] LABS: Glucose,Whole Blood 215 mg/dL (75-99)
[2018-11-04 21:12] LABS: Glucose,Whole Blood 118 mg/dL (75-99)
[2018-11-05] MEDS: IPRATROPIUM-ALBUTEROL 3 ML NEB INHALATION SCH ×5 (01:24→20:02)
[2018-11-05 06:14] LABS: Glucose,Whole Blood 119 mg/dL (75-99)
[2018-11-05] MEDS: INSULIN ASPART (NovoLOG) 100 UNIT/ML VIAL SQ SCH ×4 (06:20→21:42)
[2018-11-05] MEDS: predniSONE 50 MG TAB PO SCH (08:44)
[2018-11-05] MEDS: ASPIRIN 81 MG PO SCH (08:44)
[2018-11-05] MEDS: SACUBITRIL/VALSARTAN 24 MG-26 MG TABLET PO SCH ×2 (08:44→21:52)
[2018-11-05] MEDS: ATORVASTATIN 40 MG TAB PO SCH (08:44)
[2018-11-05] MEDS: HYDROcodone/APAP 10-325MG 1 EACH TAB PO PRN ×3 (08:44→23:56)
[2018-11-05] MEDS: APIXABAN 5 MG TAB PO SCH (08:44)
[2018-11-05] MEDS: TROSPIUM CHLORIDE 20 MG TABLET PO SCH ×2 (08:45→21:52)
[2018-11-05] MEDS: METOPROLOL SUCCINATE (ER) 25 MG TAB.ER.24H PO SCH (08:45)
[2018-11-05] MEDS: FUROSEMIDE 10 MG/ML 4 ML VIAL IV SCH (08:45)
[2018-11-05 10:06] LABS: Calcium 9.7 mg/dL (8.4-10.2); Potassium 2.9 mmol/L (3.5-5.1)
[2018-11-05 10:11] LABS: HCT 35.3 % (34.0-46.0); MCH 29.8 pg (25.0-35.0); MCHC 33.9 g/dL (31.0-37.0); Mean Platelet Volume 8.2; Platelet Count 193 k/uL (150-450); RBC 4.01 m/uL (3.80-5.40); RDW 13.7 % (11.5-15.5); WBC 8.4 k/uL (3.8-10.6)
[2018-11-05 10:28] LABS: Creatine Kinase MB 2.1 ng/mL (0.0-2.4)
[2018-11-05 10:34] LABS: Troponin I 0.116 ng/mL (0.000-0.034)
[2018-11-05] MEDS ORDERED: POTASSIUM CHLORIDE ER 20 MEQ TAB.ER PO STA (10:55)
--- NOTE | 2018-11-05 10:57 | P.NPCON ---
History of Present Illness - Reason for Consult acute renal failure - History of Present Illness Reason for admission: Acute kidney injury History of present illness: Patient is a 73-year-old female seen in renal consultation for acute kidney injury. Baseline creatinine is near 1 and peaked at 1.5 to this admission. It is down to 1.16 today. 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 Patient states she was unable to catch her breath and came to the hospital. Chest x-ray was suggestive of pulmonary edema. She is currently maintained on IV Lasix. Dyspnea is improved significantly. She actually wants to go home. She admits to good urine output. No hematuria or dysuria. No vomiting or diarrhea. She does admit to taking Motrin 800 mg once daily for the last week or so for postsurgical pain. Denies family history of renal disease. She is noted to have ejection fraction of 20-25% with moderate mitral regurgitation and pulmonary hypertension. Vital signs are stable. General: The patient appeared well nourished and normally developed. HEENT: Head exam is unremarkable. Neck is without jugular venous distension. LUNGS: Lungs are clear to auscultation and percussion. Breath sounds decreased. HEART: Rate and Rhythm are regular. First and second heart sounds normal. No murmurs, rubs or gallops. ABDOMEN: Abdominal exam reveals normal bowel sounds. Non-tender and non- distended. No evidence of peritonitis. EXTREMITITES: No clubbing, cyanosis, or edema. Past Medical History Past Medical History: COPD, Diabetes Mellitus, Hyperlipidemia, Hypertension History of Any Multi-Drug Resistant Organisms: None Reported Past Surgical History: Adenoidectomy, Appendectomy, Cholecystectomy, Tonsillectomy Additional Past Surgical History / Comment(s): epidural-back pain Past Psychological History: No Psychological Hx Reported Smoking Status: Former smoker Past Alcohol Use History: Occasional Past Drug Use History: None Reported Medications and Allergies Home Medications Medication Instructions Recorded Confirmed Type Atorvastatin [Lipitor] 40 mg PO DAILY 11/03/18 11/03/18 History Benazepril/Hydrochlorothiazide 1 tab PO DAILY 11/03/18 11/03/18 History [Benazepril-Hctz 10-12.5 mg Tab] Cholecalciferol [Vitamin D3 (25 1,000 unit PO DAILY 11/03/18 11/03/18 History Mcg = 1000 Iu)] Ibuprofen [Motrin] 800 mg PO TID PRN 11/03/18 11/03/18 History Omeprazole 20 mg PO DAILY PRN 11/03/18 11/03/18 History Solifenacin Succinate [Vesicare] 10 mg PO DAILY 11/03/18 11/03/18 History metFORMIN HCL [Glucophage] 500 mg PO HS 11/03/18 11/03/18 History Allergies Allergy/AdvReac Type Severity Reaction Status Date / Time No Known Allergies Allergy Verified 11/03/18 07:24 Physical Exam Vitals: Vital Signs Temp Pulse Pulse Resp BP Pulse Ox 11/05/18 08:05 84 11/05/18 08:00 98.6 F 77 16 106/60 93 L 11/05/18 07:56 80 94 L 11/05/18 04:00 68 18 120/56 97 11/05/18 00:00 97.8 F 85 18 130/61 97 11/04/18 20:00 96.3 F L 78 18 130/61 94 L 11/04/18 18:47 88 11/04/18 18:33 90 98 11/04/18 15:12 72 18 11/04/18 15:10 97.9 F 72 18 102/52 99 11/04/18 13:08 82 11/04/18 12:59 80 11/04/18 12:00 72 18 Intake and Output 11/04/18 11/05/18 11/05/18 22:59 06:59 14:59 Intake Total 230 120 Output Total 950 1000 550 Balance -720 -1000 -430 Intake: Oral 230 120 Output: Urine 950 1000 550 Other: Voiding Method Toilet # Voids 3 Results - Lab Results Most recent lab results Calcium 9.7 mg/dL (8.4-10.2) 11/05/18 08:47 Magnesium 1.4 mg/dL (1.6-2.3) L 11/03/18 06:29 11/05/18 08:47 11/05/18 08:47 Assessment and Plan Plan: Assessment: 1. Acute kidney injury mostly prerenal secondary to cardiorenal syndrome. Creatinine 1.5-1 admission and is down to 1.16 today. 2. Dyspnea secondary to volume overload. 3. Acute systolic CHF with ejection fraction of 20-25% with moderate mitral regurgitation. 4. Hypokalemia secondary to diuresis. Plan: Change Lasix to 40 mg orally twice daily. Avoid nephrotoxins. Replace potassium. 80 mEq today. Check magnesium level. Repeat electrolytes in the morning. Check urinalysis. Thank you for the consultation. I will continue to follow the patient with you during her hospital stay.
[2018-11-05 11:39] LABS: Glucose,Whole Blood 146 mg/dL (75-99)
--- NOTE | 2018-11-05 11:49 | CT ---
CT CHEST FOR PULMONARY EMBOLISM. EXAMINATION TYPE: CT angio chest DATE OF EXAM: 11/05/2018 INDICATION: SOB CT DLP: 404.9 mGycm, Automated exposure control for dose reduction was used. CONTRAST: Patient injected with 80 mL of Isovue 370. COMPARISON: 12/27/2006 TECHNIQUE: CT of the chest is performed on a spiral scan at 2 mm thick sections. Study is performed with intravenous contrast timed for evaluation for pulmonary embolism. This will limit additional po rtions of the evaluation. 3-D MIP images reconstructed by the technologist are reviewed on the compu ter in the coronal and sagittal planes. FINDINGS: No persistent filling defects are evident to suggest an acute pulmonary embolism. No mediastinal or hilar adenopathy enlarged by CT criteria is evident. The ascending aorta diameter at the level of the main pulmonary artery is 3.4 cm. The main pulmonary artery diameter at the bifur cation is 2.1 cm. A 0.8 cm nodule medially in the posterior right hilar region. Series 401 image [address] section through the upper abdomen are unremarkable. Very small hiatal hernia is not exclud ed. IMPRESSIONS: 1. No acute pulmonary embolism. 2. A 0.8 cm nodule posterior right hilar region. PET/CT could be performed for additional evaluation . Otherwise, follow-up CT chest in 6 months is recommended.
--- NOTE | 2018-11-05 12:36 | CDI ---
Documentation Clarification Form Date: 11/05/2018 12:08:00 PM From: Juana Flowers RN CCDS Admit Date: 11/03/2018 7:43:00 AM Patient Name: Tsering Luna Visit Number: [id number] Discharge Date: ATTENTION: The Clinical Documentation Specialists (CDI) and [facility] Coding Staff appreciate your assistance in clarifying documentation. Please respond to the clarification below the line at the bottom and electronically sign. The CDI & [facility] Coding staff will review the response and follow-up if needed. Please note: Queries are made part of the Legal Health Record. If you have any questions, please contact the author of this message via ITS. Dr. Padmini Hay, DO " Elevated Troponin secondary to Demand Ischemia" Is documented In the Discharge Summary Your consult Obtain serial troponins to rule out Myocardial Infarction. History/Risk Factors: Medical Hx of DM2, HTN, Hyperlipidemia, COPD, Clinical indicators: ECHO Severe global hypokinesis of LV. Overall left ventricular systolic function is severely impaired with, an EF between 20 25% . The diastolic filling pattern indicates impaired relaxation. EKG Sinus tachycardia with premature atrial complexes , nonspecific ST abnormality Abnormal Troponin: 11/03/3028 2.6; 5.6; 5.6; 4.4; 3.0; 11/04/2018 1.7 Treatment: Eliqus; Dc'd 11/05/2018 Consult Cardiology, Troponins not documented In order to capture the severity of condition and necessary documentation specificity, please clarify: * Demand Ischemia with Type II WA * Demand Ischemia without Type II WA * Unable to determine * Other, please specify (Last Revision: December 2016) Demand ischemia with type II [place] MTDD
--- NOTE | 2018-11-05 12:55 | P.PN ---
Subjective Progress Note Date: 11/05/18 Principal diagnosis: CHF exacerbation Patient was seen and examined. No acute events overnight. Patient reports resolution of her dyspnea. States that she is at baseline. She denies any chest pain or palpitations. No nausea or vomiting. No fever or chills. Continues to complain of back pain radiating into the right lower extremity, related to sciatica, chronic in nature, seeing orthopedic surgery in the outpatient setting. Objective - Vital Signs Vital signs: Vital Signs Temp 98.6 F 11/05/18 08:00 Pulse 84 11/05/18 08:05 Resp 16 11/05/18 08:00 BP 106/60 11/05/18 08:00 Pulse Ox 93 L 11/05/18 08:00 Intake & Output 11/04/18 11/05/18 11/05/18 18:59 06:59 18:59 Intake Total 230 120 Output Total 1650 1000 950 Balance -1420 -1000 -830 Intake: Oral 230 120 Output: Urine 1650 1000 950 Other: Voiding Method Toilet # Voids 3 - Exam General: [non toxic], [no distress], [appears at stated age] Derm: [warm], [dry] Head: [atraumatic], [normocephalic], [symmetric] Eyes: [EOMI], [no lid lag], [anicteric sclera] Mouth: [no lip lesion], [mucus membranes moist] Cardiovascular: [S1S2 reg], [no murmur], [positive DP pulse bilateral] Lungs: [Decreased breath sounds bilateral], [no rales] , [no accessory muscle use] Abdominal: [soft], [ nontender to palpation], [no guarding], [no appreciable organomegaly] Ext: [no gross muscle atrophy], [no edema], [no contractures] Neuro: [no focal neuro deficits] Psych: [Alert], [oriented], [appropriate affect] - Labs CBC & Chem 7: 11/05/18 08:47 11/05/18 08:47 Labs: Abnormal Lab Results - Last 24 Hours (Table) 11/04/18 11/04/18 11/05/18 Range/Units 16:57 21:11 06:13 Potassium (3.5-5.1) mmol/L BUN (7-17) mg/dL Creatinine (0.52-1.04) mg/dL Glucose (74-99) mg/dL POC Glucose (mg/dL) 215 H 118 H 119 H (75-99) mg/dL Magnesium (1.6-2.3) mg/dL Troponin I (0.000-0.034) ng/mL 11/05/18 11/05/18 11/05/18 Range/Units 08:47 08:47 08:47 Potassium 2.9 L (3.5-5.1) mmol/L BUN 35 H (7-17) mg/dL Creatinine 1.16 H (0.52-1.04) mg/dL Glucose 151 H (74-99) mg/dL POC Glucose (mg/dL) (75-99) mg/dL Magnesium 1.5 L (1.6-2.3) mg/dL Troponin I 0.116 H* (0.000-0.034) ng/mL 11/05/18 Range/Units 11:37 Potassium (3.5-5.1) mmol/L BUN (7-17) mg/dL Creatinine (0.52-1.04) mg/dL Glucose (74-99) mg/dL POC Glucose (mg/dL) 146 H (75-99) mg/dL Magnesium (1.6-2.3) mg/dL Troponin I (0.000-0.034) ng/mL Assessment and Plan Assessment: Assessment and Plan Acute hypoxic respiratory failure from pulmonary edema due to CHF with component of COPD Troponin elevation Pulmonary edema due to CHF exacerbation EF 20-25% COPD exacerbation Hypokalemia Diabetes mellitus with hyperglycemia Hypertension Hyperlipidemia Acute kidney injury Resolved: Hypokalemia, lactic acidosis, leukocytosis Initially on BiPAP in the ED, transitioned to nasal cannula. BNP 3890 with chest x-ray showing signs of pulmonary edema. Troponin is 0.028, 0.157, 0.248, 0.233 with EKG showing sinus tachycardia and PACs. Elevated d-dimer, VQ scan shows intermediate probability, CTA chest performed today rules out PE. Plans: O2 per NC/BiPAP to maintain O2 saturation greater than 92%. Continue IV Lasix for diuresis. Optimize COPD medications. Troponin is 0.028, 0.157, 0.248, 0.233 with EKG showing sinus tachycardia and PACs. Plans: Telemetry monitoring. Continue aspirin. Continue Lipitor. Cont inue beta roberta. Follow-up echocardiogram. Discussed with [facility] [employer], plans for cardiac catheterization in the outpatient setting, medically managed for now. Echocardiogram shows EF 20-25% with global hypokinesis. New-onset. Plans: Continue diuresis with Lasix 40 g IV twice a day for 1 more day as per cardiology, transition to oral tomorrow. Start Entresto. Continue metoprolol. Strict intake and output. Daily weights. History of smoker. Plans: DuoNeb every 6 hours scheduled for shortness of breath and wheezing. Given Solu-Medrol in the ED, continue prednisone for a total of 5 days. Potassium 2.9. Plans: Replaced by nephrology today. Repeat BMP tomorrow morning. [id number] glucose 146. Hyperglycemia likely due to steroid use. Plans: Insulin sliding scale. Regular Accu-Cheks. Hypoglycemic precautions BP 106/60. Plans: Continue valsartan. Continue beta roberta. Monitor vitals, adjust medications as necessary. Plans: Continue Lipitor. BUN 21-31-35, creatinine 1.52-1.51-1.16. Patient is not aware of chronic kidney disease. Plans: Avoid nephrotoxins. Encourage hydration by mouth. Caution with fluid given pulmonary edema. Repeat BMP in the morning. Nephrology recommendations appreciated. [Patient admitted for acute hypoxic respiratory failure from pulmonary edema and COPD, started on IV diuresis. Cardiology consulted for elevated troponins, recommends outpatient cardiac catheterization, on IV diuresis for 1 more day. Found to have elevated d-dimer, VQ scan indeterminant, CTA chest ruled out PE. Echocardiogram shows new onset CHF, cardiology optimizing medications. Likely DC tomorrow.]
--- NOTE | 2018-11-05 14:24 | P.PN ---
Subjective Progress Note Date: 11/05/18 This is a 73-year-old female with multiple medical problems including hypertension, diabetes, hyperlipidemia, presented to the hospital with symptoms of shortness of breath. Chest x-ray showed congestive cardiac failure, patient was initiated on IV Lasix. A d-dimer was ordered yesterday by Dr. Pinedo which came back to be 1.5 today subsequently patient underwent a VQ scan which revealed intermediate probability for pulmonary embolism. Patient overall is been diuresing well on the IV Lasix, continues to feel short of breath but she states that it's significantly improved from her presentation here. Echocardiogram with Doppler study was performed which revealed an ejection fraction of 20-25%, moderate mitral regurgitation, moderate pulmonary hypertension. 11/05/2018 Patient was seen and examined this morning, overall she's feeling much better, she continues to diurese well. Breathing has improved significantly, sodium today 141, potassium 2.9, BUN 35, creatinine 1.1. Magnesium 1.5. We will repeat a chest x-ray tomorrow, we will also request a CTA of the chest to confirm whether or not patient has a pulmonary embolism. Venous duplex study was negative for DVT. Objective - Vital Signs Vital signs: Vital Signs Temp 98.6 F 11/05/18 08:00 Pulse 78 11/05/18 12:53 Resp 16 11/05/18 08:00 BP 106/60 11/05/18 08:00 Pulse Ox 93 L 11/05/18 08:00 Intake & Output 11/04/18 11/05/18 11/05/18 18:59 06:59 18:59 Intake Total 230 120 Output Total 1650 1000 950 Balance -1420 -1000 -830 Intake: Oral 230 120 Output: Urine 1650 1000 950 Other: Voiding Method Toilet # Voids 3 - Exam PHYSICAL EXAMINATION: GENERAL: 73-year-old female in no acute distress at the time of my examination HEENT: Head is atraumatic, normocephalic. Pupils equal, round. Sclera anicteric. Conjunctiva are clear. Mucous membranes of the mouth are moist. Neck is supple. There is no elevated jugular venous pressure. No Carotid bruit is heard. HEART EXAMINATIONHeart S1 S2 1 systolic murmur is heard.] CHEST EXAMINATION Lungs reveal improvement in air entry to bilateral bases. ABDOMEN: [ Soft, nontender. Bowel sounds are heard. No organomegaly noted]. EXTREMITIES:[ 2+ peripheral pulses with no evidence of peripheral edema and no calf tenderness noted NEUROLOGIC [patient is awake, alert and orientedX3 . - Labs CBC & Chem 7: 11/05/18 08:47 11/05/18 08:47 Labs: Abnormal Lab Results - Last 24 Hours (Table) 11/04/18 11/04/18 11/05/18 Range/Units 16:57 21:11 06:13 Potassium (3.5-5.1) mmol/L BUN (7-17) mg/dL Creatinine (0.52-1.04) mg/dL Glucose (74-99) mg/dL POC Glucose (mg/dL) 215 H 118 H 119 H (75-99) mg/dL Magnesium (1.6-2.3) mg/dL Troponin I (0.000-0.034) ng/mL 11/05/18 11/05/18 11/05/18 Range/Units 08:47 08:47 08:47 Potassium 2.9 L (3.5-5.1) mmol/L BUN 35 H (7-17) mg/dL Creatinine 1.16 H (0.52-1.04) mg/dL Glucose 151 H (74-99) mg/dL POC Glucose (mg/dL) (75-99) mg/dL Magnesium 1.5 L (1.6-2.3) mg/dL Troponin I 0.116 H* (0.000-0.034) ng/mL 11/05/18 Range/Units 11:37 Potassium (3.5-5.1) mmol/L BUN (7-17) mg/dL Creatinine (0.52-1.04) mg/dL Glucose (74-99) mg/dL POC Glucose (mg/dL) 146 H (75-99) mg/dL Magnesium (1.6-2.3) mg/dL Troponin I (0.000-0.034) ng/mL Assessment and Plan Plan: Assessment and plan #1 systolic congestive heart failure acute on chronic #2 hypertension #3 diabetes #4 hyperlipidemia #5 renal insufficiency #6 intermediate probability for PE on VQ scan Plan CT of the chest has been requested today, if it's negative for pulmonary embolism we may be able to discontinue the Eliquis. We will continue the IV Lasix for 24 hours and repeat chest x-ray in the morning. DNP note has been reviewed, I agree with a documented findings and plan of care. Patient was seen and examined.
[2018-11-05 16:44] LABS: Glucose,Whole Blood 180 mg/dL (75-99)
[2018-11-05] MEDS: FUROSEMIDE 40 MG TAB PO SCH (17:25)
[2018-11-05 18:01] LABS: Amorphous Sediment,Urine Rare /hpf; Appearance,Urine Clear (Clear); Bacteria,Urine Occasional /hpf; Bilirubin,Urine Negative (Negative); Blood,Urine Trace (Negative); Color,Urine Light Yellow; Glucose,Urine (UA) Negative (Negative); Hyaline Casts,Urine 7 /lpf (0-2); Ketones,Urine Negative (Negative); Leukocyte Esterase,Urine Moderate (Negative); Mucus,Urine Rare /hpf; Nitrite,Urine Positive (Negative); Protein,Urine Negative (Negative); RBC,Urine 4 /hpf (0-5); Squamous Epithelial Cell,Urine 4 /hpf (0-4); Urobilinogen,Urine <2.0 mg/dL (<2.0); WBC,Urine 15 /hpf (0-5)
[2018-11-05] MEDS ORDERED: IPRATROPIUM-ALBUTEROL 3 ML NEB INHALATION PRN (19:40)
[2018-11-05 20:47] LABS: Glucose,Whole Blood 126 mg/dL (75-99)
[2018-11-05] MEDS: MAGNESIUM SULFATE-D5W PMX 1 GM in DEXTROSE/WATER 1 100ML.BAG IVPB SCH ×2 (21:52→23:56)
[2018-11-06 06:26] LABS: Glucose,Whole Blood 120 mg/dL (75-99)
[2018-11-06] MEDS: INSULIN ASPART (NovoLOG) 100 UNIT/ML VIAL SQ SCH (06:27)
[2018-11-06 06:37] LABS: Calcium 9.5 mg/dL (8.4-10.2); Magnesium 2.2 mg/dL (1.6-2.3); Potassium 3.6 mmol/L (3.5-5.1)
--- NOTE | 2018-11-06 08:22 | XR ---
EXAMINATION TYPE: XR chest 2V DATE OF EXAM: 11/06/2018 COMPARISON: 11/03/2018 TECHNIQUE: PA and lateral views submitted. HISTORY: Follow-up CHF FINDINGS: Heart size is prominent. There is improving interstitial changes and subsegmental consolidation. No p leural effusion or pneumothorax. Arthropathy of the shoulders and diffuse osteopenia. Atherosclerotic change of the aorta. Degenerative change of the spine. Surgical clips are noted. IMPRESSION: 1. Interval marked improvement in the interstitium suggestive of resolving interstitial edema or pneu monitis.
[2018-11-06 08:43] VITALS: BP 130/77; TEMP 97.8
[2018-11-06] MEDS: IPRATROPIUM-ALBUTEROL 3 ML NEB INHALATION SCH ×2 (09:04→13:06)
[2018-11-06 09:09] VITALS: RESP 18
[2018-11-06 09:18] VITALS: PULSE 76
[2018-11-06] MEDS: ASPIRIN 81 MG PO SCH (09:58)
[2018-11-06] MEDS: METOPROLOL SUCCINATE (ER) 25 MG TAB.ER.24H PO SCH (09:59)
[2018-11-06] MEDS: ATORVASTATIN 40 MG TAB PO SCH (09:59)
[2018-11-06] MEDS: predniSONE 50 MG TAB PO SCH (09:59)
[2018-11-06] MEDS: FUROSEMIDE 40 MG TAB PO SCH (09:59)
[2018-11-06] MEDS: SACUBITRIL/VALSARTAN 24 MG-26 MG TABLET PO SCH (10:00)
[2018-11-06] MEDS: TROSPIUM CHLORIDE 20 MG TABLET PO SCH (10:01)
[2018-11-06] MEDS: HYDROcodone/APAP 10-325MG 1 EACH TAB PO PRN (10:01)
[2018-11-06 11:54] LABS: Glucose,Whole Blood 139 mg/dL (75-99)
[2018-11-06] MEDS ORDERED: POTASSIUM CHLORIDE ER 20 MEQ TAB.ER PO STA (12:07)
--- NOTE | 2018-11-06 12:07 | P.PN ---
Subjective Patient is seen in follow-up for acute kidney injury. Creatinine peaked at 1.5 this admission. It is down to 1.11 today. No chest pain or shortness of breath. Urine output is good. No vomiting or diarrhea. Vital signs are stable. General: The patient appeared well nourished and normally developed. HEENT: Head exam is unremarkable. Neck is without jugular venous distension. LUNGS: Lungs are clear to auscultation and percussion. Breath sounds decreased. HEART: Rate and Rhythm are regular. First and second heart sounds normal. No murmurs, rubs or gallops. ABDOMEN: Abdominal exam reveals normal bowel sounds. Non-tender and non-distended. No evidence of peritonitis. EXTREMITITES: No clubbing, cyanosis, or edema. Objective - Vital Signs Vital signs: Vital Signs Temp 97.8 F 11/06/18 08:00 Pulse 76 11/06/18 09:18 Resp 18 11/06/18 09:04 BP 130/77 11/06/18 08:00 Pulse Ox 97 11/06/18 09:04 Intake & Output 11/05/18 11/06/18 11/06/18 18:59 06:59 18:59 Intake Total 840 Output Total 950 300 Balance -110 -300 Weight 90.1 kg Intake: Oral 840 Output: Urine 950 300 Other: Voiding Method Toilet Toilet - Labs CBC & Chem 7: 11/05/18 08:47 11/06/18 06:02 Labs: Abnormal Lab Results - Last 24 Hours (Table) 11/05/18 11/05/18 11/05/18 Range/Units 16:42 17:35 20:46 Carbon Dioxide (22-30) mmol/L BUN (7-17) mg/dL Creatinine (0.52-1.04) mg/dL Glucose (74-99) mg/dL POC Glucose (mg/dL) 180 H 126 H (75-99) mg/dL Urine Blood Trace H (Negative) Urine Nitrite Positive H (Negative) Ur Leukocyte Esterase Moderate H (Negative) Urine WBC 15 H (0-5) /hpf Amorphous Sediment Rare H (None) /hpf Urine Bacteria Occasional H (None) /hpf Hyaline Casts 7 H (0-2) /lpf Urine Mucus Rare H (None) /hpf 11/06/18 11/06/18 11/06/18 Range/Units 06:02 06:25 11:52 Carbon Dioxide 33 H (22-30) mmol/L BUN 36 H (7-17) mg/dL Creatinine 1.11 H (0.52-1.04) mg/dL Glucose 124 H (74-99) mg/dL POC Glucose (mg/dL) 120 H 139 H (75-99) mg/dL Urine Blood (Negative) Urine Nitrite (Negative) Ur Leukocyte Esterase (Negative) Urine WBC (0-5) /hpf Amorphous Sediment (None) /hpf Urine Bacteria (None) /hpf Hyaline Casts (0-2) /lpf Urine Mucus (None) /hpf Assessment and Plan Plan: Assessment: 1. Acute kidney injury mostly prerenal secondary to cardiorenal syndrome. Creatinine 1.52 on admission and is down to 1.11 today. No proteinuria on UA. 2. Dyspnea secondary to volume overload. Improved. 3. Acute systolic CHF with ejection fraction of 20-25% with moderate mitral regurgitation. 4. Hypokalemia secondary to diuresis. Plan: Maintain Lasix 40 mg orally twice daily. Avoid nephrotoxins. Replace potassium. 40 mEq today. Add maintenance potassium supplementation. Stable to be discharged home from nephrology standpoint. Follow up outpatient in the next 1-2 weeks.
--- NOTE | 2018-11-06 15:31 | P.PN ---
Subjective Progress Note Date: 11/06/18 This is a 73-year-old female with multiple medical problems including hypertension, diabetes, hyperlipidemia, presented to the hospital with symptoms of shortness of breath. Chest x-ray showed congestive cardiac failure, patient was initiated on IV Lasix. A d-dimer was ordered yesterday by Dr. Pinedo which came back to be 1.5 today subsequently patient underwent a VQ scan which revealed intermediate probability for pulmonary embolism. Patient overall is been diuresing well on the IV Lasix, continues to feel short of breath but she states that it's significantly improved from her presentation here. Echocardiogram with Doppler study was performed which revealed an ejection fraction of 20-25%, moderate mitral regurgitation, moderate pulmonary hypertension. 11/05/2018 Patient was seen and examined this morning, overall she's feeling much better, she continues to diurese well. Breathing has improved significantly, sodium today 141, potassium 2.9, BUN 35, creatinine 1.1. Magnesium 1.5. We will repeat a chest x-ray tomorrow, we will also request a CTA of the chest to confirm whether or not patient has a pulmonary embolism. Venous duplex study was negative for DVT. 11/06/2018 Patient was seen and examined this morning, continues to improve, diuresed well through the night last night. She still continues to be somewhat tachycardic, we will increase the dose of metoprolol today. From our perspective she may be able to be discharged home to follow-up in the office post discharge. Objective - Vital Signs Vital signs: Vital Signs Temp 97.8 F 11/06/18 08:00 Pulse 76 11/06/18 09:18 Resp 18 11/06/18 09:04 BP 130/77 11/06/18 08:00 Pulse Ox 97 11/06/18 09:04 Intake & Output 11/05/18 11/06/18 11/06/18 18:59 06:59 18:59 Intake Total 840 480 Output Total 950 300 Balance -110 -300 480 Weight 90.1 kg Intake: Oral 840 480 Output: Urine 950 300 Other: Voiding Method Toilet Toilet # Voids 2 - Exam PHYSICAL EXAMINATION: GENERAL: 73-year-old female in no acute distress at the time of my examination HEENT: Head is atraumatic, normocephalic. Pupils equal, round. Sclera anicteric. Conjunctiva are clear. Mucous membranes of the mouth are moist. Neck is supple. There is no elevated jugular venous pressure. No Carotid bruit is heard. HEART EXAMINATIONHeart S1 S2 1 systolic murmur is heard.] CHEST EXAMINATION Lungs reveal improvement in air entry to bilateral bases. ABDOMEN: [ Soft, nontender. Bowel sounds are heard. No organomegaly noted]. EXTREMITIES:[ 2+ peripheral pulses with no evidence of peripheral edema and no calf tenderness noted NEUROLOGIC [patient is awake, alert and orientedX3 . - Labs CBC & Chem 7: 11/05/18 08:47 11/06/18 06:02 Labs: Abnormal Lab Results - Last 24 Hours (Table) 11/05/18 11/05/18 11/05/18 Range/Units 16:42 17:35 20:46 Carbon Dioxide (22-30) mmol/L BUN (7-17) mg/dL Creatinine (0.52-1.04) mg/dL Glucose (74-99) mg/dL POC Glucose (mg/dL) 180 H 126 H (75-99) mg/dL Urine Blood Trace H (Negative) Urine Nitrite Positive H (Negative) Ur Leukocyte Esterase Moderate H (Negative) Urine WBC 15 H (0-5) /hpf Amorphous Sediment Rare H (None) /hpf Urine Bacteria Occasional H (None) /hpf Hyaline Casts 7 H (0-2) /lpf Urine Mucus Rare H (None) /hpf 11/06/18 11/06/18 11/06/18 Range/Units 06:02 06:25 11:52 Carbon Dioxide 33 H (22-30) mmol/L BUN 36 H (7-17) mg/dL Creatinine 1.11 H (0.52-1.04) mg/dL Glucose 124 H (74-99) mg/dL POC Glucose (mg/dL) 120 H 139 H (75-99) mg/dL Urine Blood (Negative) Urine Nitrite (Negative) Ur Leukocyte Esterase (Negative) Urine WBC (0-5) /hpf Amorphous Sediment (None) /hpf Urine Bacteria (None) /hpf Hyaline Casts (0-2) /lpf Urine Mucus (None) /hpf Assessment and Plan Plan: Assessment and plan #1 systolic congestive heart failure acute on chronic #2 hypertension #3 diabetes #4 hyperlipidemia #5 renal insufficiency #6 intermediate probability for PE on VQ scan Plan From cardiology's perspective, patient may be able to be discharged home today. We will increase the dose of beta roberta. Follow-up appointment in the office post discharge. DNP note has been reviewed, I agree with a documented findings and plan of care. Patient was seen and examined.
--- NOTE | 2018-11-06 20:39 | P.DS ---
Providers Date of admission: 11/03/18 07:43 Expected date of discharge: 11/06/18 Attending physician: Kali Ansari MD Consults: 11/03/18 11:58 Consult Physician Routine Consulting Provider: Pranav Pinedo Consult Reason/Comments: CHF Do you want consulting provider notified?: Yes 11/04/18 14:52 Consult Physician Routine Consulting Provider: Eloy Cantrell Consult Reason/Comments: CKD, intermediate probability of PE, needs CTA Do you want consulting provider notified?: Yes Primary care physician: Milo Lora Hospital Course: Discharge Diagnosis: Acute exacerbation of systolic congestive heart failure, newly discovered Global hypokinesis Acute kidney injury secondary to cardiorenal syndrome Hypokalemia Elevated troponin secondary to demand ischemia Pulmonary edema due to CHF Acute exacerbation of COPD Diabetes mellitus with hyperglycemia Hypertension Dyslipidemia Hospital Course: Patient is a 73-year-old female past medical history of COPD, diabetes mellitus with oral medication use only, hypertension, and dyslipidemia who presented to the emergency department with shortness of breath. In the ER she underwent an extensive evaluation. On arrival she was noted to be tachycardic with a pulse rate of 112. She became acutely dyspneic with a respiratory rate of 36 with shortness of breath and labored breathing. She was subsequently placed on BiPAP therapy. Initial laboratory analysis showed a slightly elevated white blood cell count 12.6, potassium 3.2, carbon dioxide 21, BUN 21, creatinine 1.52, elevated lactic acid at 2.6, and magnesium of 1.4. Initial BNP was elevated at 3890. Initial troponin negative. Chest x-ray demonstrated pulmonary edema. She was started on steroids and diuresis. She was admitted for further management of acute exacerbation of probable CHF and acute exacerbation of COPD. Cardiology was consulted. She ultimately underwent an echocardiogram which showed an ejection fraction of 20-25% with global hypokinesis. She was started on beta blockers, Lasix, and ultimately Enteresto She had some acute renal failure which was secondary to cardiorenal syndrome of seen by nephrology. Creatinine improved throughout her hospital stay. She was noted to have an elevated d-dimer. She had an intermediate probability on VQ scan, and negative lower extremity venous Dopplers. She ultimately underwent a CTA of the chest once her renal function had improved which showed no sign of pulmonary embolism. She was subsequently taken off anticoagulation. Her breathing had returned to baseline. She is no longer requiring oxygen. She was able to ambulate the hallways without difficulty. Cardiology determined she was appropriate for outpatient cath. She'll follow up with Dr. Lam on 11/19/18 at 2:45 PM, Dr. Lora on 11/14 at 9 AM, and Dr. Cantrell in 2 weeks. We also arranged for home health care with [facility] with telehealth. We will try to front Load the visits as Tsering seems slightly overwhelmed with her new diagnosis of congestive heart failure, increase in medications, and dietary changes. She'll have a repeat basic metabolic profile in 3 days in order to ensure that her Lasix dose and potassium doses are appropriate. All questions were answered. She was subsequently discharged. Patient seen and examined at bedside. Eating improved. No chest pain, no lower extremity swelling. No nausea or vomiting. Extensively counseled on the risks of congestive heart failure, importance of following up for cardiac catheteriza tion, and importance of compliance with medications. After much discussion patient was amenable to home health care. Vital signs reviewed and stable. General: non toxic, no distress, appears at stated age Derm: warm, dry Head: atraumatic, normocephalic, symmetric Eyes: EOMI, no lid lag, anicteric sclera Mouth: no lip lesion, mucus membranes moist Cardiovascular: S1S2 reg, no murmur, positive posterior tibial pulse bilateral, Lungs: CTA bilateral, no rhonchi, no rales , no accessory muscle use Abdominal: soft, nontender to palpation, no guarding, no appreciable organomegaly Ext: no gross muscle atrophy, no edema, no contractures Neuro: CN II-XI grossly intact, no focal neuro deficits Psych: Alert, oriented, appropriate affect A total of 35 minutes of time were spent preparing this complex discharge summary . Patient Condition at Discharge: Stable Plan - Discharge Summary New Discharge Prescriptions: New Aspirin 81 mg PO DAILY chew Sacubitril/Valsartan [Entresto 24 mg-26 mg Tablet] 1 each PO BID tablet Furosemide [Lasix] 40 mg PO BID@0900,1600 #60 tab HYDROcodone/APAP 5-325MG [[place] 5] 1 each PO Q6HR PRN #18 tab PRN Reason: Pain predniSONE 50 mg PO DAILY #3 tab Metoprolol Succinate (ER) [Toprol XL] 25 mg PO DAILY #30 tab.er.24h Potassium Chloride ER [K-Dur 20] 20 meq PO DAILY #30 tab Continue Cholecalciferol [Vitamin D3 (25 Mcg = 1000 Iu)] 1,000 unit PO DAILY metFORMIN HCL [Glucophage] 500 mg PO HS Solifenacin Succinate [Vesicare] 10 mg PO DAILY Omeprazole 20 mg PO DAILY PRN PRN Reason: Heartburn Atorvastatin [Lipitor] 40 mg PO DAILY Discontinued Ibuprofen [Motrin] 800 mg PO TID PRN PRN Reason: Pain Benazepril/Hydrochlorothiazide [Benazepril-Hctz 10-12.5 mg Tab] 1 tab PO DAILY Discharge Medication List Atorvastatin [Lipitor] 40 mg PO DAILY 11/03/18 [History] Cholecalciferol [Vitamin D3 (25 Mcg = 1000 Iu)] 1,000 unit PO DAILY 11/03/18 [History] Omeprazole 20 mg PO DAILY PRN 11/03/18 [History] Solifenacin Succinate [Vesicare] 10 mg PO DAILY 11/03/18 [History] metFORMIN HCL [Glucophage] 500 mg PO HS 11/03/18 [History] Aspirin 81 mg PO DAILY chew 11/06/18 [Rx] Furosemide [Lasix] 40 mg PO BID@0900,1600 #60 tab 11/06/18 [Rx] HYDROcodone/APAP 5-325MG [[place] 5] 1 each PO Q6HR PRN #18 tab 11/06/18 [Rx] Metoprolol Succinate (ER) [Toprol XL] 25 mg PO DAILY #30 tab.er.24h 11/06/18 [Rx] Potassium Chloride ER [K-Dur 20] 20 meq PO DAILY #30 tab 11/06/18 [Rx] Sacubitril/Valsartan [Entresto 24 mg-26 mg Tablet] 1 each PO BID tablet 11/06/18 [Rx] predniSONE 50 mg PO DAILY #3 tab 11/06/18 [Rx] Follow up Appointment(s)/Referral(s): Milo Lora MD [Primary Care Provider] - 11/14/18 9:00 am (Saturday) [facility], [NON-STAFF] - Eloy Cantrell DO [STAFF PHYSICIAN] - 4 Weeks Pranav Pinedo MD [STAFF PHYSICIAN] - 11/19/18 2:45 pm (Saturday) Ambulatory/Diagnostic Orders: Basic Metabolic Panel [LAB.AMB] Time Frame: 3 Days, Location: None Selected Patient Instructions/Handouts: Heart Failure (DC), Heart Healthy Diet (DC) Activity/Diet/Wound Care/Special Instructions: Entresto filled at [facility] with free 30 day coupon - copay after that is $90 Diet: heart healthy Activity: as tolerated Discharge Disposition: HOME WITH HOME HEALTH SERVICES
[2018-11-07] MEDS ORDERED: POTASSIUM CHLORIDE ER 20 MEQ TAB.ER PO SCH (09:00)
[2018-11-07] MEDS ORDERED: METOPROLOL SUCCINATE (ER) 50 MG TAB.ER.24H PO SCH (09:00)
== END 2018-11-06 13:58 | disposition home health service (06) | DRG 280 ==
LOC: EC 06:20 → 3SCARD 07:43
PROVIDERS: ADMIT Family Medicine; ATTEND Family Medicine
PROC: 5A09357 Assistance with Respiratory Ventilation, Less than 24 Consecutive Hours, Continuous Positive Airway Pressure (ICD-10-PCS; principal; 2018-11-03)
DX: I13.0 Hypertensive heart and chronic kidney disease with heart failure and stage 1 through stage 4 chronic kidney disease, or unspecified chronic kidney disease (principal); I50.23 Acute on chronic systolic (congestive) heart failure; I21.A1 Myocardial infarction type 2; J96.01 Acute respiratory failure with hypoxia; E87.2 Acidosis; J44.1 Chronic obstructive pulmonary disease with (acute) exacerbation; N17.9 Acute kidney failure, unspecified; D72.829 Elevated white blood cell count, unspecified; E11.22 Type 2 diabetes mellitus with diabetic chronic kidney disease; E11.65 Type 2 diabetes mellitus with hyperglycemia; E78.5 Hyperlipidemia, unspecified; E83.42 Hypomagnesemia; E86.0 Dehydration; E87.6 Hypokalemia; G89.29 Other chronic pain; I27.20 Pulmonary hypertension, unspecified; I34.0 Nonrheumatic mitral (valve) insufficiency; M54.40 Lumbago with sciatica, unspecified side; N18.9 Chronic kidney disease, unspecified; T38.0X5A Adverse effect of glucocorticoids and synthetic analogues, initial encounter; T50.2X5A Adverse effect of carbonic-anhydrase inhibitors, benzothiadiazides and other diuretics, initial encounter; Z79.84 Long term (current) use of oral hypoglycemic drugs; Z79.899 Other long term (current) drug therapy; Z87.891 Personal history of nicotine dependence; Z90.49 Acquired absence of other specified parts of digestive tract; R79.1 Abnormal coagulation profile
CPT/HCPCS: 36415; 71045; 71046; 71275; 78582; 80048; 80053; 81001; 82550; 82553; 83605; 83735; 83880; 84132; 84484; 85025; 85027; 85379; 85610; 85730; 93005; 93306; 93970; 94640; 94660; 94760; 96374; 96375; 99291

== ENCOUNTER 2018-11-27 05:49 | Day surgery (SDC) | payer MEDICARE ==
[2018-11-27] MEDS ORDERED: NITROGLYCERIN SL TABS 0.4 MG TAB SUBLINGUAL PRN ×2 (06:00→09:28)
[2018-11-27] MEDS ORDERED: SODIUM CHLORIDE 0.9% 1,000 ML in EMPTY BAG 1 BAG IV ONE (06:00)
[2018-11-27] MEDS ORDERED: ALPRAZolam 0.5 MG TAB PO PRN (06:00)
[2018-11-27] MEDS ORDERED: ASPIRIN 325 MG TAB PO STA (06:00)
[2018-11-27] MEDS ORDERED: ATORVASTATIN 80 MG TAB PO STA (06:00)
[2018-11-27] MEDS ORDERED: ALPRAZolam 0.25 MG TAB PO PRN (06:00)
[2018-11-27] MEDS ORDERED: SODIUM CHLORIDE 0.9% 1,000 ML IV ONE (06:45)
[2018-11-27 06:48] LABS: Glucose,Whole Blood 121 mg/dL (75-99)
[2018-11-27] MEDS ORDERED: LIDOCAINE 1% INJ 10MG/ML (20 ML MDV) ONE (07:30)
[2018-11-27] MEDS ORDERED: fentaNYL (PF) 50 MCG/ML 2 ML AMP ONE (07:35)
[2018-11-27] MEDS ORDERED: fentaNYL (PF) 50 MCG/ML 2 ML AMP IV ONE (07:38)
[2018-11-27] MEDS ORDERED: LIDOCAINE 1% INJ 10MG/ML (20 ML MDV) SQ ONE (07:39)
[2018-11-27] MEDS ORDERED: MIDAZOLAM (PF) 2 MG/2 ML VIAL IV ONE (07:39)
[2018-11-27] MEDS ORDERED: CLOPIDOGREL 75 MG TAB ONE (08:11)
[2018-11-27] MEDS ORDERED: BIVALIRUDIN BOLUS 250 MG/50 ML IV ONE (08:12)
[2018-11-27] MEDS ORDERED: BIVALIRUDIN 250 MG in SODIUM CHLORIDE 0.9% 50 ML IV ONE (08:13)
[2018-11-27] MEDS ORDERED: CLOPIDOGREL 75 MG TAB PO ONE (08:13)
[2018-11-27] MEDS ORDERED: IOPAMIDOL-370 125ML BTL INJ ONE (08:24)
--- NOTE | 2018-11-27 08:27 | CC ---
CARDIAC CATHETERIZATION REPORT INDICATION: Acute pulmonary edema with cardiomyopathy with severe LV dysfunction. PROCEDURE NOTE: After obtaining informed consent, left heart catheterization and coronary angiogram were performed via the right femoral artery using standard Yuri catheters. The patient tolerated the procedure well without any obvious immediate complications. A femoral angiogram was done and patient has significant peripheral arterial disease. The patient received moderate conscious sedation and total sedation time was 16 minutes. FINDINGS: 1. HEMODYNAMICS: Left ventricular end-diastolic pressure is 10 to 12 mm. There is no gradient across the aortic valve. 2. LEFT VENTRICULOGRAM: Left ventriculogram is not performed. 3. ANGIOGRAPHIC DATA: Left Main Coronary Artery: Left main coronary artery appears calcified but is free of stenosis. LAD and circumflex coronary artery have separate origins. Mid LAD shows 60% to 70% stenosis right at the origin of the diagonal branch. 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 Midportion of the circumflex coronary artery shows 95% stenosis. There are collaterals to the distal circumflex from the LAD. The right coronary artery is a small nondominant vessel and shows mild disease. CONCLUSIONS: Three-vessel coronary artery disease as described above with critical stenosis involving circumflex coronary artery that has an ectopic origin with 60% to 70% stenosis involving mid left anterior descending artery. PLAN: I am going to have Dr. Bailey the on-call interventionalist to review the angiographic data and advise on angioplasty of the circumflex coronary artery. MMDONYAL / ZACN: [id number] /
[2018-11-27] MEDS ORDERED: NITROGLYCERIN 1000MCG/10ML SYRINGE INTRACORON ONE (08:40)
[2018-11-27] MEDS ORDERED: IOPAMIDOL-370 100ML BTL INJ ONE (09:22)
[2018-11-27] MEDS ORDERED: MAG HYDROX/AL HYDROX/SIMETH 30 ML CUP PO PRN (09:28)
[2018-11-27] MEDS ORDERED: ATROPINE SULFATE 0.1 MG/ML 10ML SYRINGE IV PRN (09:28)
[2018-11-27] MEDS ORDERED: RX INFO: IV CONTRAST WAS GIVEN 1 EACH MISC MISCELLANE PRN (09:28)
[2018-11-27] MEDS ORDERED: SODIUM CHLORIDE 0.9% 1,000 ML IV SCH (09:30)
[2018-11-27] MEDS ORDERED: PANTOPRAZOLE 40 MG TABLET PO PRN (09:30)
--- NOTE | 2018-11-27 10:09 | PTCA ---
PERCUTANEOUSTRANS CORORONARY ANGIOGRAPHY Mrs Luna is a 73-year-old female known history of hypertension, hyperlipidemia, and diabetes mellitus who recently presented with an acute pulmonary edema, had a severely impaired left ventricular systolic function by echocardiography, was evaluated by Dr. 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 In view of her presentation and her anatomy, recommendation made regarding angioplasty and stenting, the procedures, risks and complications were discussed with the patient who is in full understanding and agreement. PROCEDURE: A 6-Maori AR 1 guiding catheter introduced in the system after cannulating the ostium of the left circumflex, attempt to advance a 0.014 balanced medium weight J-wire across the lesion were unsuccessful. The wire was kept in a proximal branch and subsequently with a 0.014 whisper J-wire and a FineCross catheter were advanced and the wire across the lesion, positioned distally with the FineCross catheter. The wire was exchanged to a 0.014 balanced medium weight J-wire. The FineCross catheter was removed and a 2.5 x 12 mm Trek balloon was advanced and multiple inflations at 10 atmospheres were done. Following that, the balloon was removed and attempt to advance a 2.75 x 15 mm Xience Liliana stent were unsuccessful. That stent was removed and repeat inflation with the 2.5 x 12 mm Trek balloon were made. Attempt to advance the 2.75 x 15 mm stent were unsuccessful as well. In spite of advancing the first 0.014 balanced medium weight J- wire distally. At that point, the stent was removed and attempt to advance a 2.75 x 12 mm Xience Liliana stent were unsuccessful as well. At that point, the stent was removed and one of the wire were removed and a GuideLiner was advanced and with the help of the GuideLiner, the 2.75 x 15 Xience Liliana stent was advanced, deployed and post dilated at 16 atmospheres. After the last inflation, after appropriate wait, the balloon was withdrawn back in the guiding catheter, and attempt to advance a 3.0 x 12 mm NC Trek was unsuccessful. That balloon was removed and a 3.0 x 8 mm NC Trek balloon was advanced and inflation at 12 atmospheres were done. Following the last inflation, after appropriate wait, the balloon and the guidewire were withdrawn back in the guiding catheter. Images were obtained and repeated. Those images reveal stable successful stenting. At that point, the guiding catheter, the balloon and the guidewire were removed. The sheath was sutured in place. The patient was returned to her room in stable condition. Of note, the patient had no chest discomfort or EKG changes with the inflation. She received Angiomax per protocol as well as oral loading dose of clopidogrel. 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 RECOMMENDATION: 1. Patient will be continued on aspirin, Plavix and statin. The importance of dual antiplatelet treatment were discussed with the patient and she was in full understanding and agreement. 2. 3. Duration of the procedure is 56 minutes. TORO / BRYCE: [id number] /
--- NOTE | 2018-11-27 10:12 | PTCA ---
PERCUTANEOUSTRANS CORORONARY ANGIOGRAPHY DATE OF SERVICE 11/27/2018 RE: Tsering Luna Dear Dr. Lora; I had the pleasure to perform coronary angioplasty and stenting on Mrs. Luna at [facility] on November 27, 2018 and a full copy of the procedure note will be forwarded to you. 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 I am hopeful that this procedure will stabilize her status and thank you again for allowing me to participate in this patient's care. Please feel free to call for any questions. Sincerely yours, Bertha Bailey MD MMDONYAL / ZACN: [id number] /
[2018-11-27 13:02] LABS: Glucose,Whole Blood 118 mg/dL (75-99)
[2018-11-27 14:09] VITALS: BMI 35.0
[2018-11-27 17:09] LABS: Glucose,Whole Blood 179 mg/dL (75-99)
[2018-11-27] MEDS: SACUBITRIL/VALSARTAN 24 MG-26 MG TABLET PO SCH (19:53)
[2018-11-27 20:39] LABS: Glucose,Whole Blood 128 mg/dL (75-99)
[2018-11-27] MEDS ORDERED: ZOLPIDEM 5 MG TAB PO PRN (21:00)
[2018-11-28 06:12] LABS: Glucose,Whole Blood 122 mg/dL (75-99)
[2018-11-28 06:22] LABS: Calcium 9.2 mg/dL (8.4-10.2); Potassium 3.6 mmol/L (3.5-5.1)
[2018-11-28 08:01] VITALS: BP 147/66; PULSE 76; RESP 16; TEMP 96.7
--- NOTE | 2018-11-28 08:52 | DS ---
DISCHARGE SUMMARY DATE OF ADMISSION: 11/27/2018 DATE OF DISCHARGE: 11/28/2018 FINAL DIAGNOSES: 1. Cardiomyopathy with congestive heart failure. 2. Coronary artery disease. PROCEDURES PERFORMED: 1. Left heart catheterization. 2. Angioplasty with stent placement of circumflex coronary artery. HOSPITAL COURSE: This is a 73-year-old lady who was recently admitted to hospital with acute pulmonary edema and was found to have ischemic cardiomyopathy with severe LV dysfunction. The patient was advised to undergo cardiac catheterization to evaluate for significant obstructive coronary artery disease. Her cardiac catheterization revealed a 95% stenosis involving circumflex coronary artery for which she underwent angioplasty with stent placement. This morning, patient is doing well and is free of chest pain or difficulty in breathing. Her EKG shows normal sinus rhythm and is within normal limits. CONDITION AT THE TIME OF DISCHARGE: Comfortable at rest. Vital signs are stable. Chest exam reveals good air entry bilaterally. Heart exam reveals first and second heart sounds. No gallop. Abdomen is soft. Examination of extremities did not reveal any edema. Groin is free of bleeding, bruit, hematoma. Foot pulses are intact. LABS: Labs show a creatinine of 0.9, potassium is 3.6. EKG does not reveal ischemic changes. DISCHARGE MEDICATIONS: Discharge medications include: 1. Aspirin. 2. Lipitor. 3. Entresto. 4. Toprol XL 25 q. Daily. 5. Lasix 40 b.i.d. 6. K-Dur. 7. Glucophage will be held for 48 hours from the time of initial catheterization. 8. Plavix 75 mg daily. 9. Along with sublingual nitroglycerin p.r.n. basis. FOLLOWUP: Patient will be followed up in my office in a week's time. MMODL / IJN: [id number] /
[2018-11-28] MEDS ORDERED: METOPROLOL SUCCINATE (ER) 25 MG TAB.ER.24H PO SCH (09:00)
[2018-11-28] MEDS ORDERED: TROSPIUM CHLORIDE 20 MG TABLET PO SCH (09:00)
[2018-11-28] MEDS ORDERED: ATORVASTATIN 40 MG TAB PO SCH (09:00)
[2018-11-28] MEDS ORDERED: CLOPIDOGREL 75 MG TAB PO SCH (09:00)
[2018-11-28] MEDS ORDERED: ASPIRIN 81 MG PO SCH (09:00)
[2018-11-28] MEDS ORDERED: CHOLECALCIFEROL 1,000 UNIT TAB PO SCH (09:00)
[2018-11-28] MEDS: SACUBITRIL/VALSARTAN 24 MG-26 MG TABLET PO SCH (09:24)
== END 2018-11-28 09:29 | disposition home or self-care (01) ==
LOC: CATHCVL 05:49 → 3SCARD 09:14 → CATHCVL 11-28 09:29
PROVIDERS: ATTEND Internal Medicine Cardiovascular Disease
DX: I25.10 Atherosclerotic heart disease of native coronary artery without angina pectoris (principal); I25.84 Coronary atherosclerosis due to calcified coronary lesion; I11.0 Hypertensive heart disease with heart failure; I50.22 Chronic systolic (congestive) heart failure; I42.0 Dilated cardiomyopathy; Z72.0 Tobacco use; E78.5 Hyperlipidemia, unspecified; E11.9 Type 2 diabetes mellitus without complications; Z79.84 Long term (current) use of oral hypoglycemic drugs; Z79.82 Long term (current) use of aspirin; Z79.899 Other long term (current) drug therapy
CPT/HCPCS: 93458; 85347; 80048; C9600; C1769 ×4; C1887 ×3; C1725 ×3; C1894; C1874; J2001; J3010; J0583; Q9967 ×2; J2250

== ENCOUNTER 2019-01-11 11:13 | Inpatient (IN) | payer MEDICARE ==
[2019-01-11] MEDS ORDERED: SODIUM CHLORIDE 0.9% 500 ML 500 ML IV STA (11:46)
--- NOTE | 2019-01-11 12:01 | ED ---
General Adult HPI - General Chief complaint: Nausea/Vomiting/Diarrhea Stated complaint: Diarrhea Time Seen by Provider: 01/11/19 11:25 Source: patient Mode of arrival: wheelchair Limitations: no limitations - History of Present Illness Initial comments: The patient is a 73-year-old female past history of diabetes, CHF and COPD who presents to the emergency room with reported diarrhea for the past 3 weeks. Patient was hospitalized in November for shortness of breath. It was found that the patient had ischemic cardiomyopathy with a circumflex lesion which they stented at the end of November. She was placed on multiple new medications. Afterher hospitalization she did develop diarrhea. States it's black and watery in color. She will have at least 2-3 episodes per day. Admits to urinary incontinence. States she's been miserable as she has no control over her bowels. Denies any bright red blood. No rectal pain. Admits to mild abdominal pain with nausea. Has had few episodes of dry heaving. She saw her primary care physician who took her off of her metformin. He also told her to take half her dose of Lasix. He also told her to take Imodium A-D. States that these medication changes haven't helped her symptoms and the diarrhea continues to get worse. She did bring in a stool sample to her Dr. last week. The diarrhea persists and she has now started to feel lightheaded. Patient's noted be hypotensive in triage. She denies any changes in her urination to include dysuria, hematuria, or difficulty voiding. No back pain or flank pain. No fevers or chills. Denies any saddle anesthesia or urinary incontinence. No chest pain or shortness of breath. She has had a colonoscopy in the past. Denies any abnormal findings. Last one was 5 years ago. There are no other alleviating, precipitating or modifying factors - Related Data Home Medications Medication Instructions Recorded Confirmed Atorvastatin [Lipitor] 40 mg PO DAILY 11/03/18 01/11/19 Cholecalciferol [Vitamin D3 (25 1,000 unit PO DAILY 11/03/18 01/11/19 Mcg = 1000 Iu)] Omeprazole 20 mg PO DAILY PRN 11/03/18 01/11/19 Solifenacin Succinate [Vesicare] 10 mg PO DAILY 11/03/18 01/11/19 Furosemide [Lasix] 20 mg PO BID 01/11/19 01/11/19 Sacubitril/Valsartan [Entresto 24 1 tab PO BID 01/11/19 01/11/19 mg-26 mg Tablet] Previous Rx's Medication Instructions Recorded Aspirin 81 mg PO DAILY chew 11/06/18 Metoprolol Succinate (ER) [Toprol 25 mg PO DAILY #30 tab.er.24h 11/06/18 XL] Potassium Chloride ER [K-Dur 20] 20 meq PO DAILY #30 tab 11/06/18 Clopidogrel Bisulfate [Plavix] 75 mg PO DAILY #30 tab 11/28/18 Allergies Allergy/AdvReac Type Severity Reaction Status Date / Time No Known Allergies Allergy Verified 01/11/19 13:54 Review of Systems ROS Statement: Those systems with pertinent positive or pertinent negative responses have been documented in the HPI. ROS Other: All systems not noted in ROS Statement are negative. Past Medical History Past Medical History: Heart Failure, COPD, Diabetes Mellitus, Hyperlipidemia, Hypertension, Musculoskeletal Disorder Additional Past Medical History / Comment(s): recent admission for CHF & SOB, sciatic back pain down right leg History of Any Multi-Drug Resistant Organisms: None Reported Past Surgical History: Adenoidectomy, Appendectomy, Cholecystectomy, Heart Catheterization, Tonsillectomy Additional Past Surgical History / Comment(s): epidural-back pain Past Anesthesia/Blood Transfusion Reactions: No Reported Reaction Past Psychological History: No Psychological Hx Reported Smoking Status: Former smoker Past Alcohol Use History: Occasional Past Drug Use History: None Reported - Past Family History Mother Family Medical History: No Reported History General Exam Limitations: no limitations General appearance: alert, in no apparent distress Head exam: Present: atraumatic, normocephalic, normal inspection Eye exam: Present: normal appearance, PERRL, EOMI. Absent: scleral icterus, conjunctival injection, periorbital swelling ENT exam: Present: normal exam, mucous membranes moist Neck exam: Present: normal inspection. Absent: tenderness, meningismus, lymphadenopathy Respiratory exam: Present: normal lung sounds bilaterally. Absent: respiratory distress, wheezes, rales, rhonchi, stridor Cardiovascular Exam: Present: regular rate, normal rhythm, normal heart sounds. Absent: systolic murmur, diastolic murmur, rubs, gallop, clicks GI/Abdominal exam: Present: soft, normal bowel sounds. Absent: distended, tenderness, guarding, rebound, rigid Rectal exam: Present: other (brown liquid stool). Absent: black stool, bloody stool, hemorrhoids Extremities exam: Present: normal inspection, full ROM, normal capillary refill. Absent: tenderness, pedal edema, joint swelling, calf tenderness Back exam: Present: normal inspection Neurological exam: Present: alert, oriented X3, CN II-XII intact Psychiatric exam: Present: normal affect, normal mood Skin exam: Present: warm, dry, intact, normal color. Absent: rash Course Vital Signs 01/11/19 01/11/19 01/11/19 11:22 12:12 13:32 Temperature 97.8 F Pulse Rate 67 71 Pulse Rate [ 67 Left Sitting Pulse Oximetery ] Pulse Rate [ 76 Left Standing Pulse Oximetery ] Pulse Rate [ 60 Left Supine Pulse Oximetery ] Respiratory 18 16 Rate Blood Pressure 83/44 98/58 Blood Pressure 101/53 [Right Arm Sitting] Blood Pressure 105/78 [Right Arm Standing] Blood Pressure 106/55 [Right Arm Supine] O2 Sat by Pulse 98 97 Oximetry EKG Findings - EKG Comments: EKG Findings:: EKG demonstrates a normal sinus rhythm with a ventricular rate of 70. SD interval 138. QRS 112. QTC 464. Q waves in lead 2, [address] depression in leads V4 through V6. This is compared to the patient's previous EKG which was done on November [address] depression appears more prominent. Procedures - Stool Hemoccult Hemoccult result: positive Medical Decision Making - Medical Decision Making Upon arrival the patient was placed into room 6. A thorough history and physical exam is performed. Orthostatics are obtained and are negative. I did perform a fecal occult which was positive. There is no gross blood on physical exam. Peripheral IV was established. Patient was given a 500 cc bolus of n ormal saline. Gentle fluid hydration was originally pursued as the patient was just recently hospitalized for volume overload. Laboratory studies demonstrate a white blood cell count of 11. PTT 21.5. Potassium is low at 2.9. BUN elevated at 70 with a creatinine of 3.09. I ordered a magnesium level and this is pending. I ordered oral and IV replacement of the patient's potassium. She does have an episode of vomiting therefore we do hold off on oral replacement. Patient was given 4mg of Zofran. Ordered a CT of the patient's abdomen and pelvis with contrast however due to her acute kidney injury and rhythm without contrast. Does demonstrate fluid filled colon with no bowel wall thickening. Mild cardiomegaly. I discussed this with the patient. Recommended hospital admission. Dr. Ann accepted the admission. I placed a consult GI. Patient will remain on fluid hydration at 100 mL per hour. I do not complete stool studies as the patient recently just had them done. C. diff was negative. Patient remained in stable condition and was transferred to the floor - Lab Data Result diagrams: 01/12/19 08:58 01/13/19 08:32 Lab Results 01/11/19 01/11/19 01/11/19 Range/Units 11:38 11:38 11:38 WBC 11.0 H (3.8-10.6) k/uL RBC 4.58 (3.80-5.40) m/uL Hgb 13.8 (11.4-16.0) gm/dL Hct 40.4 (34.0-46.0) % MCV 88.3 (80.0-100.0) fL MCH 30.0 (25.0-35.0) pg MCHC 34.0 (31.0-37.0) g/dL RDW 12.8 (11.5-15.5) % Plt Count 306 (150-450) k/uL Neutrophils % 74 % Lymphocytes % 13 % Monocytes % 11 % Eosinophils % 1 % Basophils % 1 % Neutrophils # 8.1 H (1.3-7.7) k/uL Lymphocytes # 1.4 (1.0-4.8) k/uL Monocytes # 1.2 H (0-1.0) k/uL Eosinophils # 0.1 (0-0.7) k/uL Basophils # 0.1 (0-0.2) k/uL PT (9.0-12.0) sec INR (<1.2) APTT (22.0-30.0) sec Sodium 138 (137-145) mmol/L Potassium 2.9 L (3.5-5.1) mmol/L Chloride 101 (98-107) mmol/L Carbon Dioxide 21 L (22-30) mmol/L Anion Gap 16 mmol/L BUN 70 H (7-17) mg/dL Creatinine 3.09 H (0.52-1.04) mg/dL Est GFR (CKD-EPI)AfAm 16 (>60 ml/min/1.73 sqM) Est GFR (CKD-EPI)NonAf 14 (>60 ml/min/1.73 sqM) Glucose 154 H (74-99) mg/dL POC Glucose (mg/dL) (75-99) mg/dL POC Glu Compounding And Finishing Supervisor ID Plasma Lactic Acid Raymon 1.6 (0.7-2.0) mmol/L Calcium 9.8 (8.4-10.2) mg/dL Magnesium (1.6-2.3) mg/dL Total Bilirubin 0.6 (0.2-1.3) mg/dL AST 22 (14-36) U/L ALT 19 (9-52) U/L Alkaline Phosphatase 61 (38-126) U/L Total Protein 7.1 (6.3-8.2) g/dL Albumin 4.1 (3.5-5.0) g/dL Lipase 53 (23-300) U/L Urine Color Urine Appearance (Clear) Urine pH (5.0-8.0) Ur Specific [place] (1.001-1.035) Urine Protein (Negative) Urine Glucose (UA) (Negative) Urine Ketones (Negative) Urine Blood (Negative) Urine Nitrite (Negative) Urine Bilirubin (Negative) Urine Urobilinogen (<2.0) mg/dL Ur Leukocyte Esterase (Negative) Urine RBC (0-5) /hpf Urine WBC (0-5) /hpf Urine WBC Clumps (None) /hpf Urine Bacteria (None) /hpf Stool Occult Blood (Negative) C. difficile (EIA) Intrp (Negative) 01/11/19 01/11/19 01/11/19 Range/Units 11:38 11:38 11:38 WBC (3.8-10.6) k/uL RBC (3.80-5.40) m/uL Hgb (11.4-16.0) gm/dL Hct (34.0-46.0) % MCV (80.0-100.0) fL MCH (25.0-35.0) pg MCHC (31.0-37.0) g/dL RDW (11.5-15.5) % Plt Count (150-450) k/uL Neutrophils % % Lymphocytes % % Monocytes % % Eosinophils % % Basophils % % Neutrophils # (1.3-7.7) k/uL Lymphocytes # (1.0-4.8) k/uL Monocytes # (0-1.0) k/uL Eosinophils # (0-0.7) k/uL Basophils # (0-0.2) k/uL PT 10.3 (9.0-12.0) sec INR 1.0 (<1.2) APTT 21.5 L (22.0-30.0) sec Sodium (137-145) mmol/L Potassium (3.5-5.1) mmol/L Chloride (98-107) mmol/L Carbon Dioxide (22-30) mmol/L Anion Gap mmol/L BUN (7-17) mg/dL Creatinine (0.52-1.04) mg/dL Est GFR (CKD-EPI)AfAm (>60 ml/min/1.73 sqM) Est GFR (CKD-EPI)NonAf (>60 ml/min/1.73 sqM) Glucose (74-99) mg/dL POC Glucose (mg/dL) (75-99) mg/dL POC Glu Compounding And Finishing Supervisor ID Plasma Lactic Acid Raymon (0.7-2.0) mmol/L Calcium (8.4-10.2) mg/dL Magnesium 1.4 L (1.6-2.3) mg/dL Total Bilirubin (0.2-1.3) mg/dL AST (14-36) U/L ALT (9-52) U/L Alkaline Phosphatase (38-126) U/L Total Protein (6.3-8.2) g/dL Albumin (3.5-5.0) g/dL Lipase (23-300) U/L Urine Color Urine Appearance (Clear) Urine pH (5.0-8.0) Ur Specific [place] (1.001-1.035) Urine Protein (Negative) Urine Glucose (UA) (Negative) Urine Ketones (Negative) Urine Blood (Negative) Urine Nitrite (Negative) Urine Bilirubin (Negative) Urine Urobilinogen (<2.0) mg/dL Ur Leukocyte Esterase (Negative) Urine RBC (0-5) /hpf Urine WBC (0-5) /hpf Urine WBC Clumps (None) /hpf Urine Bacteria (None) /hpf Stool Occult Blood Positive H (Negative) C. difficile (EIA) Intrp (Negative) 01/11/19 01/11/19 01/11/19 Range/Units 16:58 18:00 19:47 WBC (3.8-10.6) k/uL RBC (3.80-5.40) m/uL Hgb (11.4-16.0) gm/dL Hct (34.0-46.0) % MCV (80.0-100.0) fL MCH (25.0-35.0) pg MCHC (31.0-37.0) g/dL RDW (11.5-15.5) % Plt Count (150-450) k/uL Neutrophils % % Lymphocytes % % Monocytes % % Eosinophils % % Basophils % % Neutrophils # (1.3-7.7) k/uL Lymphocytes # (1.0-4.8) k/uL Monocytes # (0-1.0) k/uL Eosinophils # (0-0.7) k/uL Basophils # (0-0.2) k/uL PT (9.0-12.0) sec INR (<1.2) APTT (22.0-30.0) sec Sodium (137-145) mmol/L Potassium (3.5-5.1) mmol/L Chloride (98-107) mmol/L Carbon Dioxide (22-30) mmol/L Anion Gap mmol/L BUN (7-17) mg/dL Creatinine (0.52-1.04) mg/dL Est GFR (CKD-EPI)AfAm (>60 ml/min/1.73 sqM) Est GFR (CKD-EPI)NonAf (>60 ml/min/1.73 sqM) Glucose (74-99) mg/dL POC Glucose (mg/dL) 143 H 136 H (75-99) mg/dL POC Glu Compounding And Finishing Supervisor Ramona Mills Raquel Plasma Lactic Acid Raymon (0.7-2.0) mmol/L Calcium (8.4-10.2) mg/dL Magnesium (1.6-2.3) mg/dL Total Bilirubin (0.2-1.3) mg/dL AST (14-36) U/L ALT (9-52) U/L Alkaline Phosphatase (38-126) U/L Total Protein (6.3-8.2) g/dL Albumin (3.5-5.0) g/dL Lipase (23-300) U/L Urine Color Urine Appearance (Clear) Urine pH (5.0-8.0) Ur Specific [place] (1.001-1.035) Urine Protein (Negative) Urine Glucose (UA) (Negative) Urine Ketones (Negative) Urine Blood (Negative) Urine Nitrite (Negative) Urine Bilirubin (Negative) Urine Urobilinogen (<2.0) mg/dL Ur Leukocyte Esterase (Negative) Urine RBC (0-5) /hpf Urine WBC (0-5) /hpf Urine WBC Clumps (None) /hpf Urine Bacteria (None) /hpf Stool Occult Blood (Negative) C. difficile (EIA) Intrp Negative (Negative) 01/11/19 01/12/19 01/12/19 Range/Units 22:36 03:55 06:50 WBC (3.8-10.6) k/uL RBC (3.80-5.40) m/uL Hgb (11.4-16.0) gm/dL Hct (34.0-46.0) % MCV (80.0-100.0) fL MCH (25.0-35.0) pg MCHC (31.0-37.0) g/dL RDW (11.5-15.5) % Plt Count (150-450) k/uL Neutrophils % % Lymphocytes % % Monocytes % % Eosinophils % % Basophils % % Neutrophils # (1.3-7.7) k/uL Lymphocytes # (1.0-4.8) k/uL Monocytes # (0-1.0) k/uL Eosinophils # (0-0.7) k/uL Basophils # (0-0.2) k/uL PT (9.0-12.0) sec INR (<1.2) APTT (22.0-30.0) sec Sodium (137-145) mmol/L Potassium 3.4 L (3.5-5.1) mmol/L Chloride (98-107) mmol/L Carbon Dioxide (22-30) mmol/L Anion Gap mmol/L BUN (7-17) mg/dL Creatinine (0.52-1.04) mg/dL Est GFR (CKD-EPI)AfAm (>60 ml/min/1.73 sqM) Est GFR (CKD-EPI)NonAf (>60 ml/min/1.73 sqM) Glucose (74-99) mg/dL POC Glucose (mg/dL) 113 H (75-99) mg/dL POC Glu Compounding And Finishing Supervisor ID Alex Rojas Plasma Lactic Acid Raymon (0.7-2.0) mmol/L Calcium (8.4-10.2) mg/dL Magnesium (1.6-2.3) mg/dL Total Bilirubin (0.2-1.3) mg/dL AST (14-36) U/L ALT (9-52) U/L Alkaline Phosphatase (38-126) U/L Total Protein (6.3-8.2) g/dL Albumin (3.5-5.0) g/dL Lipase (23-300) U/L Urine Color Light Red Urine Appearance Turbid H (Clear) Urine pH 5.5 (5.0-8.0) Ur Specific [place] 1.017 (1.001-1.035) Urine Protein 1+ H (Negative) Urine Glucose (UA) Negative (Negative) Urine Ketones Negative (Negative) Urine Blood Moderate H (Negative) Urine Nitrite Negative (Negative) Urine Bilirubin Negative (Negative) Urine Urobilinogen <2.0 (<2.0) mg/dL Ur Leukocyte Esterase Large H (Negative) Urine RBC 34 H (0-5) /hpf Urine WBC >182 H (0-5) /hpf Urine WBC Clumps Many H (None) /hpf Urine Bacteria Many H (None) /hpf Stool Occult Blood (Negative) C. difficile (EIA) Intrp (Negative) 01/12/19 01/12/19 01/12/19 Range/Units 08:58 08:58 11:06 WBC 7.4 (3.8-10.6) k/uL RBC 4.08 (3.80-5.40) m/uL Hgb 12.1 (11.4-16.0) gm/dL Hct 37.7 (34.0-46.0) % MCV 92.3 (80.0-100.0) fL MCH 29.7 (25.0-35.0) pg MCHC 32.1 (31.0-37.0) g/dL RDW 13.1 (11.5-15.5) % Plt Count 248 (150-450) k/uL Neutrophils % 63 % Lymphocytes % 23 % Monocytes % 10 % Eosinophils % 2 % Basophils % 1 % Neutrophils # 4.7 (1.3-7.7) k/uL Lymphocytes # 1.7 (1.0-4.8) k/uL Monocytes # 0.8 (0-1.0) k/uL Eosinophils # 0.2 (0-0.7) k/uL Basophils # 0.1 (0-0.2) k/uL PT (9.0-12.0) sec INR (<1.2) APTT (22.0-30.0) sec Sodium 140 (137-145) mmol/L Potassium 3.7 (3.5-5.1) mmol/L Chloride 110 H (98-107) mmol/L Carbon Dioxide 16 L (22-30) mmol/L Anion Gap 14 mmol/L BUN 68 H (7-17) mg/dL Creatinine 2.71 H (0.52-1.04) mg/dL Est GFR (CKD-EPI)AfAm 19 (>60 ml/min/1.73 sqM) Est GFR (CKD-EPI)NonAf 17 (>60 ml/min/1.73 sqM) Glucose 147 H (74-99) mg/dL POC Glucose (mg/dL) 113 H (75-99) mg/dL POC Glu Compounding And Finishing Supervisor ID Alex Rojas Plasma Lactic Acid [place] (0.7-2.0) mmol/L Calcium 9.1 (8.4-10.2) mg/dL Magnesium 2.0 (1.6-2.3) mg/dL Total Bilirubin (0.2-1.3) mg/dL AST (14-36) U/L ALT (9-52) U/L Alkaline Phosphatase (38-126) U/L Total Protein (6.3-8.2) g/dL Albumin (3.5-5.0) g/dL Lipase (23-300) U/L Urine Color Urine Appearance (Clear) Urine pH (5.0-8.0) Ur Specific [place] (1.001-1.035) Urine Protein (Negative) Urine Glucose (UA) (Negative) Urine Ketones (Negative) Urine Blood (Negative) Urine Nitrite (Negative) Urine Bilirubin (Negative) Urine Urobilinogen (<2.0) mg/dL Ur Leukocyte Esterase (Negative) Urine RBC (0-5) /hpf Urine WBC (0-5) /hpf Urine WBC Clumps (None) /hpf Urine Bacteria (None) /hpf Stool Occult Blood (Negative) C. difficile (EIA) Intrp (Negative) 01/12/19 01/12/19 01/13/19 Range/Units 17:07 20:36 06:44 WBC (3.8-10.6) k/uL RBC (3.80-5.40) m/uL Hgb (11.4-16.0) gm/dL Hct (34.0-46.0) % MCV (80.0-100.0) fL MCH (25.0-35.0) pg MCHC (31.0-37.0) g/dL RDW (11.5-15.5) % Plt Count (150-450) k/uL Neutrophils % % Lymphocytes % % Monocytes % % Eosinophils % % Basophils % % Neutrophils # (1.3-7.7) k/uL Lymphocytes # (1.0-4.8) k/uL Monocytes # (0-1.0) k/uL Eosinophils # (0-0.7) k/uL Basophils # (0-0.2) k/uL PT (9.0-12.0) sec INR (<1.2) APTT (22.0-30.0) sec Sodium (137-145) mmol/L Potassium (3.5-5.1) mmol/L Chloride (98-107) mmol/L Carbon Dioxide (22-30) mmol/L Anion Gap mmol/L BUN (7-17) mg/dL Creatinine (0.52-1.04) mg/dL Est GFR (CKD-EPI)AfAm (>60 ml/min/1.73 sqM) Est GFR (CKD-EPI)NonAf (>60 ml/min/1.73 sqM) Glucose (74-99) mg/dL POC Glucose (mg/dL) 111 H 124 H 114 H (75-99) mg/dL POC Glu Compounding And Finishing Supervisor Ramona Mclain Tammy Williams, Chloe Plasma Lactic Acid Ray[place] (0.7-2.0) mmol/L Calcium (8.4-10.2) mg/dL Magnesium (1.6-2.3) mg/dL Total Bilirubin (0.2-1.3) mg/dL AST (14-36) U/L ALT (9-52) U/L Alkaline Phosphatase (38-126) U/L Total Protein (6.3-8.2) g/dL Albumin (3.5-5.0) g/dL Lipase (23-300) U/L Urine Color Urine Appearance (Clear) Urine pH (5.0-8.0) Ur Specific [place] (1.001-1.035) Urine Protein (Negative) Urine Glucose (UA) (Negative) Urine Ketones (Negative) Urine Blood (Negative) Urine Nitrite (Negative) Urine Bilirubin (Negative) Urine Urobilinogen (<2.0) mg/dL Ur Leukocyte Esterase (Negative) Urine RBC (0-5) /hpf Urine WBC (0-5) /hpf Urine WBC Clumps (None) /hpf Urine Bacteria (None) /hpf Stool Occult Blood (Negative) C. difficile (EIA) Intrp (Negative) 01/13/19 01/13/19 Range/Units 08:32 11:23 WBC (3.8-10.6) k/uL RBC (3.80-5.40) m/uL Hgb (11.4-16.0) gm/dL Hct (34.0-46.0) % MCV (80.0-100.0) fL MCH (25.0-35.0) pg MCHC (31.0-37.0) g/dL RDW (11.5-15.5) % Plt Count (150-450) k/uL Neutrophils % % Lymphocytes % % Monocytes % % Eosinophils % % Basophils % % Neutrophils # (1.3-7.7) k/uL Lymphocytes # (1.0-4.8) k/uL Monocytes # (0-1.0) k/uL Eosinophils # (0-0.7) k/uL Basophils # (0-0.2) k/uL PT (9.0-12.0) sec INR (<1.2) APTT (22.0-30.0) sec Sodium 142 (137-145) mmol/L Potassium 4.1 (3.5-5.1) mmol/L Chloride 117 H (98-107) mmol/L Carbon Dioxide 16 L (22-30) mmol/L Anion Gap 9 mmol/L BUN 45 H (7-17) mg/dL Creatinine 1.49 H (0.52-1.04) mg/dL Est GFR (CKD-EPI)AfAm 40 (>60 ml/min/1.73 sqM) Est GFR (CKD-EPI)NonAf 34 (>60 ml/min/1.73 sqM) Glucose 146 H (74-99) mg/dL POC Glucose (mg/dL) 121 H (75-99) mg/dL POC Glu Compounding And Finishing Supervisor ID Mirna Cummins Plasma Lactic Acid [place] (0.7-2.0) mmol/L Calcium 8.7 (8.4-10.2) mg/dL Magnesium (1.6-2.3) mg/dL Total Bilirubin (0.2-1.3) mg/dL AST (14-36) U/L ALT (9-52) U/L Alkaline Phosphatase (38-126) U/L Total Protein (6.3-8.2) g/dL Albumin (3.5-5.0) g/dL Lipase (23-300) U/L Urine Color Urine Appearance (Clear) Urine pH (5.0-8.0) Ur Specific [place] (1.001-1.035) Urine Protein (Negative) Urine Glucose (UA) (Negative) Urine Ketones (Negative) Urine Blood (Negative) Urine Nitrite (Negative) Urine Bilirubin (Negative) Urine Urobilinogen (<2.0) mg/dL Ur Leukocyte Esterase (Negative) Urine RBC (0-5) /hpf Urine WBC (0-5) /hpf Urine WBC Clumps (None) /hpf Urine Bacteria (None) /hpf Stool Occult Blood (Negative) C. difficile (EIA) Intrp (Negative) Disposition Clinical Impression: Dehydration, Acute kidney failure, Hypokalemia, Diarrhea Disposition: ADMITTED IP TO THIS [facility] Condition: Stable Is patient prescribed a controlled substance at d/c from ED?: No Decision to Admit Reason: Admit from EC Decision Date: 01/11/19 Decision Time: 13:46
[2019-01-11 12:45] LABS: Albumin 4.1 g/dL (3.5-5.0); Calcium 9.8 mg/dL (8.4-10.2); Potassium 2.9 mmol/L (3.5-5.1); Total Bilirubin 0.6 mg/dL (0.2-1.3); Total Protein 7.1 g/dL (6.3-8.2)
[2019-01-11] MEDS ORDERED: POTASSIUM CHLORIDE ER 20 MEQ TAB.ER PO STA (12:55)
[2019-01-11 12:56] LABS: Partial Thromboplastin Time 21.5 sec (22.0-30.0); Prothrombin Time 10.3 sec (9.0-12.0)
[2019-01-11] MEDS ORDERED: POTASSIUM CHLORIDE 20 MEQ in WATER FOR INJECTION 1 100ML.BAG IVPB STA (12:56)
[2019-01-11 13:08] LABS: Basophils # (A) 0.1 k/uL (0-0.2); Basophils % (A) 1 %; Eosinophils # (A) 0.1 k/uL (0-0.7); Eosinophils % (A) 1 %; HCT 40.4 % (34.0-46.0); HGB 13.8 gm/dL (11.4-16.0); Lymphocytes # (A) 1.4 k/uL (1.0-4.8); Lymphocytes % (A) 13 %; MCV 88.3 fL (80.0-100.0); Mean Platelet Volume 7.2; Monocytes # (A) 1.2 k/uL (0-1.0); Monocytes % (A) 11 %; Neutrophils # (A) 8.1 k/uL (1.3-7.7); Neutrophils % (A) 74 %; Platelet Count 306 k/uL (150-450); RBC 4.58 m/uL (3.80-5.40); RDW 12.8 % (11.5-15.5)
[2019-01-11] MEDS ORDERED: ONDANSETRON 4 MG/2 ML VIAL IVP STA (13:13)
--- NOTE | 2019-01-11 13:30 | CT ---
EXAMINATION TYPE: CT abdomen pelvis wo con DATE OF EXAM: 01/11/2019 COMPARISON: NONE HISTORY: Diarrhea CT DLP: 819.2 mGycm Automated exposure control for dose reduction was used. FINDINGS: There is a calcified granuloma in the posterior basal segment of the left lower lobe. Visua lized portions of the lungs are otherwise clear. There is no pleural or pericardial fluid. The heart is minimally enlarged. Within the abdomen, the gallbladder is been removed. Liver and spleen are normal. There is a small sp lenule just anterior to the tip of the spleen. There is a small, 12 mm nodule in the right adrenal gland. Left adrenal gland is normal. There is minimal calcification associated with both kidneys but this is felt to BE vascular in nature . Limited views of the pancreas are unremarkable. There is no significant retroperitoneal, iliac or inguinal adenopathy. There is significant atheromat ous calcification of the visualized arterial tree. The bladder is not distended. The uterus and ovaries are not visualized. The entire colon is fluid-filled. The colonic wall does not appear thickened. The appendix is not vis ualized. Small bowel loops are normal. There is minor degenerative change within the spine. IMPRESSION: 1. FLUID-FILLED COLON IN KEEPING WITH THE PATIENT'S HISTORY OF DIARRHEA. THERE IS NO BOWEL WALL THICK ENING TO SUGGEST COLITIS. 2. EVIDENCE OF OLD GRANULOMATOUS DISEASE. 3. MILD CARDIOMEGALY. 4. 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
[2019-01-11] MEDS ORDERED: SODIUM CHLORIDE 0.9% 1,000 ML IV SCH (13:45)
[2019-01-11] MEDS ORDERED: NALOXONE 0.4 MG/ML 1 ML VIAL IV PRN (13:46)
[2019-01-11] MEDS ORDERED: ONDANSETRON 4 MG/2 ML VIAL IVP PRN (13:46)
[2019-01-11] MEDS ORDERED: PANTOPRAZOLE 40 MG TABLET PO PRN (14:55)
[2019-01-11] MEDS ORDERED: Potassium Replacement Protocol 1 EACH MISC MISCELLANE PRN (14:58)
[2019-01-11] MEDS ORDERED: Magnesium Replacement Protocol 1 EACH MISC MISCELLANE PRN (14:58)
--- NOTE | 2019-01-11 15:07 | P.HPIM ---
History of Present Illness H&P Date: 01/11/19 Chief Complaint: Diarrhea This is a 73-year-old female with past medical history noted below significant for diabetes and coronary artery disease with recent stent placement in November presented to the emergency room with worsening diarrhea. Patient said that her symptoms started 2 weeks ago and has been getting progressively worse. Patient is having at least 3 bowel movements per day and sometimes up to 7 bowel movements per day that she describes as watery and runny. She denies any blood in her stool. She denies having a normal bowel movement since last week. No abdominal pain. No fevers or chills. No recent sick contact or anybody around with similar symptoms. No nausea or vomiting. No recent antibiotic treatment. Patient reports having decent appetite. She felt occasionally nauseous but no vomiting. She was seen by her PCP and her metformin was stopped last week with no relief. Patient presented to the emergency room and a computed tomography scan of the abdomen and pelvis showed no acute findings. Patient was noted to be significantly hypokalemic and hypomagnesemic. She was also noted to have an acute kidney injury with a creatinine of 3.0 from her baseline of normal. Patient will be admitted to the hospital for further management. Review of Systems Review of system: 14 points review of systems were obtained and were negative except to what were mentioned in the HPI. Past Medical History Past Medical History: Heart Failure, COPD, Diabetes Mellitus, Hyperlipidemia, Hypertension, Musculoskeletal Disorder Additional Past Medical History / Comment(s): recent admission for CHF & SOB, sciatic back pain down right leg History of Any Multi-Drug Resistant Organisms: None Reported Past Surgical History: Adenoidectomy, Appendectomy, Cholecystectomy, Heart Catheterization, Tonsillectomy Additional Past Surgical History / Comment(s): epidural-back pain Past Anesthesia/Blood Transfusion Reactions: No Reported Reaction Past Psychological History: No Psychological Hx Reported Smoking Status: Former smoker Past Alcohol Use History: Occasional Past Drug Use History: None Reported - Past Family History Mother Family Medical History: No Reported History Medications and Allergies Home Medications Medication Instructions Recorded Confirmed Type Atorvastatin [Lipitor] 40 mg PO DAILY 11/03/18 01/11/19 History Cholecalciferol [Vitamin D3 (25 1,000 unit PO DAILY 11/03/18 01/11/19 History Mcg = 1000 Iu)] Omeprazole 20 mg PO DAILY PRN 11/03/18 01/11/19 History Solifenacin Succinate [Vesicare] 10 mg PO DAILY 11/03/18 01/11/19 History Aspirin 81 mg PO DAILY chew 11/06/18 01/11/19 Rx Metoprolol Succinate (ER) [Toprol 25 mg PO DAILY #30 tab.er.24h 11/06/18 01/11/19 Rx XL] Potassium Chloride ER [K-Dur 20] 20 meq PO DAILY #30 tab 11/06/18 01/11/19 Rx Clopidogrel Bisulfate [Plavix] 75 mg PO DAILY #30 tab 11/28/18 01/11/19 Rx Furosemide [Lasix] 20 mg PO BID 01/11/19 01/11/19 History Sacubitril/Valsartan [Entresto 24 1 tab PO BID 01/11/19 01/11/19 History mg-26 mg Tablet] Allergies Allergy/AdvReac Type Severity Reaction Status Date / Time No Known Allergies Allergy Verified 01/11/19 13:54 Physical Exam Vitals: Vital Signs Temp Pulse Pulse Pulse Pulse Resp BP 01/11/19 13:32 71 16 98/58 01/11/19 12:12 67 76 60 01/11/19 11:22 97.8 F 67 18 83/44 BP BP BP Pulse Ox 01/11/19 13:32 97 01/11/19 12:12 101/53 105/78 106/55 01/11/19 11:22 98 Intake and Output 01/11/19 01/11/19 01/11/19 06:59 14:59 22:59 Other: Weight 86.636 kg General: The patient is awake and alert, in no distress Eye: there is normal conjunctiva bilaterally. Neck: The neck is supple, there is no JVD. Cardiovascular: Normal S1-S2, no S3-S4, no murmurs. Respiratory: Lungs clear to auscultation bilaterally Gastrointestinal: Abdomen is soft, nontender Musculoskeletal: There is no pedal edema. Neurological:. Speech is normal. Skin: Skin is warm and dry Results CBC & Chem 7: 01/11/19 11:38 01/11/19 11:38 Labs: Abnormal Lab Results - Last 24 Hours (Table) 01/11/19 01/11/19 01/11/19 Range/Units 11:38 11:38 11:38 WBC 11.0 H (3.8-10.6) k/uL Neutrophils # 8.1 H (1.3-7.7) k/uL Monocytes # 1.2 H (0-1.0) k/uL APTT (22.0-30.0) sec Potassium 2.9 L (3.5-5.1) mmol/L Carbon Dioxide 21 L (22-30) mmol/L BUN 70 H (7-17) mg/dL Creatinine 3.09 H (0.52-1.04) mg/dL Glucose 154 H (74-99) mg/dL Magnesium (1.6-2.3) mg/dL Stool Occult Blood Positive H (Negative) 01/11/19 01/11/19 Range/Units 11:38 11:38 WBC (3.8-10.6) k/uL Neutrophils # (1.3-7.7) k/uL Monocytes # (0-1.0) k/uL APTT 21.5 L (22.0-30.0) sec Potassium (3.5-5.1) mmol/L Carbon Dioxide (22-30) mmol/L BUN (7-17) mg/dL Creatinine (0.52-1.04) mg/dL Glucose (74-99) mg/dL Magnesium 1.4 L (1.6-2.3) mg/dL Stool Occult Blood (Negative) Assessment and Plan Assessment: 1. Acute diarrhea, exact etiology unclear. We will rule out C. diff. also will send stool culture. CT of the abdomen with no evidence of colitis. GI consulted by ED staff for further evaluation. 2. Acute kidney injury, most likely prerenal secondary to dehydration. We'll continue aggressive IV fluid hydration. Repeat lab work in the morning. Bladder scan ordered to rule out urinary retention. I would hold nephrotoxic including Lasix and interested at this time 3. Hypokalemia, patient received 40 mEq of potassium chloride orally in the ER and an additional 20 mEq IV ordered. 4. Hypomagnesemia, I ordered 2 g of magnesium sulfate IV 5. Underlying ischemic cardiomyopathy with known ejection fraction of 20-25%, currently compensated with no evidence of exacerbation 6. Type 2 diabetes: Hold metformin and continue sliding scale insulin for now Today, I reviewed her medication list and lab work results. I would continue IV fluid hydration with normal saline +40 mEq of potassium chloride to the 100 mL per hour overnight. Consider decreasing fluid rate in the morning given underlying heart failure. Electrolytes being replaced. Continue supportive care. Repeat lab work in the morning. Contact precaution. Patient was updated about her current clinical condition. All of her questions answered to her satisfaction.
[2019-01-11 15:49] VITALS: BMI 33.8
[2019-01-11] MEDS: MAGNESIUM SULFATE-D5W PMX 1 GM in DEXTROSE/WATER 1 100ML.BAG IVPB SCH ×2 (16:50→19:49)
[2019-01-11] MEDS: INSULIN ASPART (NovoLOG) 100 UNIT/ML VIAL SQ SCH ×2 (16:58→19:51)
[2019-01-11 17:00] LABS: Glucose,Whole Blood 143 mg/dL (75-99)
[2019-01-11] MEDS: 0.9% NACL WITH KCL 40 MEQ/L 1,000 ML IV ONE ×2 (17:12→17:25)
[2019-01-11 19:48] LABS: Glucose,Whole Blood 136 mg/dL (75-99)
[2019-01-12] MEDS: POTASSIUM CHLORIDE ER 20 MEQ TAB.ER PO SCH ×2 (00:04→01:14)
[2019-01-12 04:40] LABS: Appearance,Urine Turbid (Clear); Bacteria,Urine Many /hpf; Bilirubin,Urine Negative (Negative); Blood,Urine Moderate (Negative); Color,Urine Light Red; Glucose,Urine (UA) Negative (Negative); Ketones,Urine Negative (Negative); Leukocyte Esterase,Urine Large (Negative); Nitrite,Urine Negative (Negative); PH, Urine 5.5 (5.0-8.0); Protein,Urine 1+ (Negative); RBC,Urine 34 /hpf (0-5); Specific Gravity,Urine 1.017 (1.001-1.035); Urobilinogen,Urine <2.0 mg/dL (<2.0); WBC,Urine >182 /hpf (0-5)
[2019-01-12 06:52] LABS: Glucose,Whole Blood 113 mg/dL (75-99)
[2019-01-12] MEDS: INSULIN ASPART (NovoLOG) 100 UNIT/ML VIAL SQ SCH ×4 (07:02→21:06)
[2019-01-12] MEDS: ASPIRIN 81 MG PO SCH (08:19)
[2019-01-12] MEDS: CLOPIDOGREL 75 MG TAB PO SCH (08:19)
[2019-01-12] MEDS: METOPROLOL SUCCINATE (ER) 25 MG TAB.ER.24H PO SCH (08:19)
[2019-01-12] MEDS: ATORVASTATIN 40 MG TAB PO SCH (08:19)
[2019-01-12] MEDS ORDERED: LOPERAMIDE 2 MG CAP PO PRN (08:41)
[2019-01-12] MEDS: 0.9% NACL WITH KCL 40 MEQ/L 1,000 ML IV SCH ×2 (09:20→20:10)
--- NOTE | 2019-01-12 09:29 | P.DS ---
Providers Date of admission: 01/11/19 13:47 Expected date of discharge: 01/12/19 Attending physician: Padmini Hay DO Consults: 01/11/19 13:48 Consult Physician Urgent Consulting Provider: Lauri Mahoney Reason/Comments: intractable diarrhea, LAM Do you want consulting provider notified?: Yes Primary care physician: Milo Lora [facility] Course: Thyroid not palpable. 73-year-old female with past medical history of CHF, COPD, diabetes mellitus, hypertension, dyslipidemia, CAD with recent stent placement in November presented to the ED for worsening diarrhea. Patient reports a two-week history of diarrhea with at least 3-7 bowel movements per day described as watery and runny. She denied any blood in her stool. She denied any sick contacts. She did report a decrease appetite and nausea but no vomiting. She had visited her PCP, who discontinued metformin without relief. In the ED, CT of the abdomen and pelvis was performed which showed no acute find ings but 12 mm nodule in the right adrenal gland most likely adenoma. In the ED, vital signs are stable. CBC showed leukocytosis of 11. CMP shows that patient was hypokalemic with potassium of 3.4, acidotic with bicarbonate of 21 and worsening creatinine of 3.09. Magnesium was also low at 1.4. Lactic acid was negative. Amylase and lipase was negative. Urinalysis showed moderate blood and large leukocyte esterase, though asymptomatic. Patient was admitted for acute diarrhea, rule out Clostridium difficile, and dehydration. C. diff was ruled out. Patient was seen and examined this morning. No acute events overnight. Patient denies any chest pain, shortness of breath or palpitations. No nausea or vomiting. No fever or chills. Has been tolerating clear liquid diet. She denies abdominal pain. Reports about 6-7 bowel movements over the last 24 hours. Described as watery and brown without blood. States that she had a colonoscopy but might be greater than 10 years ago. General: [non toxic], [no distress, obese], [appears at stated age] Derm: [warm], [dry] Head: [atraumatic], [normocephalic], [symmetric] Eyes: [EOMI], [no lid lag], [anicteric sclera] Mouth: [no lip lesion], [mucus membranes moist] Cardiovascular: [S1S2 reg], [no murmur], [positive DP pulse bilateral], Lungs: [Decreased breath sounds bilateral], [no rhonchi, no rales] , [no accesso ry muscle use] Abdominal: [soft], [ nontender to palpation], [no guarding], [no appreciable organomegaly] Ext: [no gross muscle atrophy], [no edema], [no contractures] Neuro: [no focal neuro deficits] Psych: [Alert], [oriented], [appropriate affect] Acute diarrhea, unknown etiology, C. diff ruled out. Acute kidney injury, prerenal due to dehydration Hypokalemia Hypomagnesemia Type 2 diabetes mellitus Obesity Chronic conditions: CHF with EF 20-25%, COPD, hypertension, dyslipidemia, CAD with recent stent placement C. diff negative. Stool culture sent. Stool for occult blood positive. Plans: Conservative management for acute diarrhea. Start Imodium scheduled. Continue normal saline 100 mL per hour. Change Protonix to by mouth daily. Zofran as needed for nausea or vomiting. Follow GI consultation. BUN 70, creatinine 3.09. Likely due to dehydration. Plans: Continue IVF as above. Avoid nephrotoxins. Follow repeat BMP this morning. Potassium 2.9-3.4. Likely due to diarrhea. Plans: Replace via protocol. Magnesium 1.4. Likely due to diarrhea. Plans: Replace via protocol. [id number] glucose 113. Plans: Insulin sliding scale. Regular Accu-Cheks. Hypoglycemic precautions. BMI 33.8. Plans: Structured weight loss program. Resume aspirin, Lipitor, Plavix and metoprolol for history of CAD, dyslipidemia and hypertension. Entresto held due to worsening creatinine. Patient's COPD is currently well controlled.] [Patient admitted for diarrhea. Has not improved. Stool culture pending. FOBT positive. GI evaluation pending. She is pending clinical improvement. DC in 1-2 days.] Pertinent Studies: CT abdomen and pelvis Patient Condition at Discharge: Stable Plan - Discharge Summary New Discharge Prescriptions: No Action Cholecalciferol [Vitamin D3 (25 Mcg = 1000 Iu)] 1,000 unit PO DAILY Solifenacin Succinate [Vesicare] 10 mg PO DAILY Omeprazole 20 mg PO DAILY PRN PRN Reason: Heartburn Atorvastatin [Lipitor] 40 mg PO DAILY Aspirin 81 mg PO DAILY chew Metoprolol Succinate (ER) [Toprol XL] 25 mg PO DAILY #30 tab.er.24h Potassium Chloride ER [K-Dur 20] 20 meq PO DAILY #30 tab Clopidogrel Bisulfate [Plavix] 75 mg PO DAILY #30 tab Sacubitril/Valsartan [Entresto 24 mg-26 mg Tablet] 1 tab PO BID Furosemide [Lasix] 20 mg PO BID Discharge Medication List Atorvastatin [Lipitor] 40 mg PO DAILY 11/03/18 [History] Cholecalciferol [Vitamin D3 (25 Mcg = 1000 Iu)] 1,000 unit PO DAILY 11/03/18 [History] Omeprazole 20 mg PO DAILY PRN 11/03/18 [History] Solifenacin Succinate [Vesicare] 10 mg PO DAILY 11/03/18 [History] Aspirin 81 mg PO DAILY chew 11/06/18 [Rx] Metoprolol Succinate (ER) [Toprol XL] 25 mg PO DAILY #30 tab.er.24h 11/06/18 [Rx] Potassium Chloride ER [K-Dur 20] 20 meq PO DAILY #30 tab 11/06/18 [Rx] Clopidogrel Bisulfate [Plavix] 75 mg PO DAILY #30 tab 11/28/18 [Rx] Furosemide [Lasix] 20 mg PO BID 01/11/19 [History] Sacubitril/Valsartan [Entresto 24 mg-26 mg Tablet] 1 tab PO BID 01/11/19 [History] Follow up Appointment(s)/Referral(s): Milo Lora MD [Primary Care Provider] - 1-2 days
[2019-01-12 09:30] LABS: Basophils # (A) 0.1 k/uL (0-0.2); Basophils % (A) 1 %; Eosinophils # (A) 0.2 k/uL (0-0.7); Eosinophils % (A) 2 %; HCT 37.7 % (34.0-46.0); HGB 12.1 gm/dL (11.4-16.0); Lymphocytes # (A) 1.7 k/uL (1.0-4.8); Lymphocytes % (A) 23 %; MCH 29.7 pg (25.0-35.0); MCHC 32.1 g/dL (31.0-37.0); MCV 92.3 fL (80.0-100.0); Mean Platelet Volume 6.7; Monocytes # (A) 0.8 k/uL (0-1.0); Monocytes % (A) 10 %; Neutrophils # (A) 4.7 k/uL (1.3-7.7); Neutrophils % (A) 63 %; Platelet Count 248 k/uL (150-450); RBC 4.08 m/uL (3.80-5.40); RDW 13.1 % (11.5-15.5); WBC 7.4 k/uL (3.8-10.6)
[2019-01-12 09:47] LABS: Calcium 9.1 mg/dL (8.4-10.2); Potassium 3.7 mmol/L (3.5-5.1)
[2019-01-12] MEDS: LOPERAMIDE 2 MG CAP PO SCH ×3 (10:56→21:08)
[2019-01-12 11:08] LABS: Glucose,Whole Blood 113 mg/dL (75-99)
[2019-01-12 17:17] LABS: Glucose,Whole Blood 111 mg/dL (75-99)
[2019-01-12 20:37] LABS: Glucose,Whole Blood 124 mg/dL (75-99)
[2019-01-13] MEDS: 0.9% NACL WITH KCL 40 MEQ/L 1,000 ML IV SCH (06:13)
[2019-01-13 06:46] LABS: Glucose,Whole Blood 114 mg/dL (75-99)
[2019-01-13] MEDS: INSULIN ASPART (NovoLOG) 100 UNIT/ML VIAL SQ SCH ×4 (08:59→20:54)
[2019-01-13] MEDS: ATORVASTATIN 40 MG TAB PO SCH (09:00)
[2019-01-13] MEDS: ASPIRIN 81 MG PO SCH (09:00)
[2019-01-13] MEDS: CLOPIDOGREL 75 MG TAB PO SCH (09:01)
[2019-01-13] MEDS: LOPERAMIDE 2 MG CAP PO SCH (09:01)
[2019-01-13] MEDS: PANTOPRAZOLE 40 MG TABLET PO SCH (09:01)
[2019-01-13] MEDS: METOPROLOL SUCCINATE (ER) 25 MG TAB.ER.24H PO SCH (09:01)
--- NOTE | 2019-01-13 09:27 | P.PN ---
Subjective Progress Note Date: 01/13/19 Principal diagnosis: Diarrhea Patient was seen and examined. No acute events overnight. Patient reports no improvement in symptoms. She reports about 7 bowel movements from yesterday morning until this morning. Described as liquid brown. No blood. She denies any chest pain, shortness of breath or palpitations. No nausea or vomiting. No fever or chills. Objective - Vital Signs Vital signs: Vital Signs Temp 98.3 F 01/13/19 04:32 Pulse 65 01/13/19 04:32 Resp 14 01/13/19 04:32 BP 107/58 01/13/19 04:32 Pulse Ox 96 01/13/19 04:32 Intake & Output 01/12/19 01/13/19 01/13/19 18:59 06:59 18:59 Intake Total 1280 1200 Balance 1280 1200 Weight 86.636 kg Intake: Intake, IV Titration 800 1200 Amount 0.9% NaCl with KCl 40 Meq 800 1200 /l 1,000 ml @ 100 mls/hr IV .Q10H BRET Rx#: [id number] Oral 480 Other: Voiding Method Bedside Commode Bedside Commode Diaper Diaper # Voids 3 - Exam General: [non toxic], [no distress, obese], [appears at stated age] Derm: [warm], [dry] Head: [atraumatic], [normocephalic], [symmetric] Eyes: [EOMI], [no lid lag], [anicteric sclera] Mouth: [no lip lesion], [mucus membranes moist] Cardiovascular: [S1S2 reg], [no murmur], [positive DP pulse bilateral], Lungs: [Clear to auscultation bilateral], [no rhonchi, no rales] , [no accessory muscle use] Abdominal: [soft], [ nontender to palpation], [no guarding], [no appreciable organomegaly] Ext: [no gross muscle atrophy], [no edema], [no contractures] Neuro: [no focal neuro deficits] Psych: [Alert], [oriented], [appropriate affect] - Labs CBC & Chem 7: 01/12/19 08:58 01/12/19 08:58 Labs: Abnormal Lab Results - Last 24 Hours (Table) 01/12/19 01/12/19 01/12/19 Range/Units 08:58 11:06 17:07 Chloride 110 H (98-107) mmol/L Carbon Dioxide 16 L (22-30) mmol/L BUN 68 H (7-17) mg/dL Creatinine 2.71 H (0.52-1.04) mg/dL Glucose 147 H (74-99) mg/dL POC Glucose (mg/dL) 113 H 111 H (75-99) mg/dL 01/12/19 01/13/19 Range/Units 20:36 06:44 Chloride (98-107) mmol/L Carbon Dioxide (22-30) mmol/L BUN (7-17) mg/dL Creatinine (0.52-1.04) mg/dL Glucose (74-99) mg/dL POC Glucose (mg/dL) 124 H 114 H (75-99) mg/dL Assessment and Plan Assessment: Acute diarrhea, unknown etiology, C. diff ruled out. Acute kidney injury, prerenal due to dehydration Type 2 diabetes mellitus Obesity Resolved: Hypokalemia, hypomagnesemia Chronic conditions: CHF with EF 20-25%, COPD, hypertension, dyslipidemia, CAD with recent stent placement C. diff negative. Stool culture sent. Stool for occult blood positive. Plans: Conservative management for acute diarrhea. Start Imodium scheduled. DC IVF and encourage hydration by mouth. Change Protonix to by mouth daily. Zofran as needed for nausea or vomiting. Follow GI consultation. BUN 70-68, creatinine 3.09-2.71. Likely due to dehydration. Plans: Continue IVF as above. Avoid nephrotoxins. Follow repeat BMP this morning. [id number] glucose 114. Plans: Insulin sliding scale. Regular Accu-Cheks. Hypoglycemic precautions. BMI 33.8. Plans: Structured weight loss program. Resume aspirin, Lipitor, Plavix and metoprolol for history of CAD, dyslipidemia and hypertension. Entresto held due to worsening creatinine. Patient's COPD is currently well controlled. [Patient admitted for diarrhea. Has not improved. Stool culture pending. FOBT positive. GI evaluation pending. She is pending clinical improvement. DC in 1-2 days.]
[2019-01-13 09:35] LABS: Calcium 8.7 mg/dL (8.4-10.2); Potassium 4.1 mmol/L (3.5-5.1)
[2019-01-13 11:23] LABS: Glucose,Whole Blood 121 mg/dL (75-99)
[2019-01-13] MEDS ORDERED: DIPHENOX-ATROP 2.5-0.025 MG 1 EACH TAB PO PRN (11:31)
--- NOTE | 2019-01-13 13:16 | P.CONS ---
History of Present Illness - Reason for Consult Consult date: 01/12/19 Diarrhea Requesting physician: Padmini Hay - Chief Complaint Diarrhea - History of Present Illness 73-year-old female with a medical history significant for congestive heart failure, COPD, diabetes mellitus, hyperlipidemia, hypertension who presented to the hospital due to complaints of diarrhea. The patient reports 2 weeks of loose stool. She reports approximately 2-3 watery bowel movements daily. She did notice some darker stool as well. She denies any antibiotics, travel, sick contacts or other triggers prior to developing symptoms. No prior episodes of similar symptoms. She was previously on metformin therapy which was discontinued one week prior to admission due to concerns over to medication causing her symptoms. Computed tomography scan performed on current admission significant for a fluid-filled colon. Laboratory evaluations to for a hemog lobin of 13.8 with negative testing for Clostridium difficile. Prior colonoscopy in 2014 was significant for tubular adenoma. Review of Systems REVIEW OF SYSTEMS: CONSTITUTIONAL: Denies any fevers, chills, weight change but does report fatigue. CARDIOVASCULAR: Denies any chest pain, palpitations high or low blood pressures RESPIRATORY: Denies any shortness of breath, hemoptysis or cough. GENITOURINARY: No dysuria or hematuria. MUSCULOSKELETAL: No weakness reported. SKIN: Denies any new rashes or lesions, jaundice or pallor. PSYCHIATRIC: Denies any depression or anxiety. NEUROLOGY: Denies headache, denies any new focal deficits. EARS/NOSE/THROAT: No recent hearing change, congestion, nasal discharge or sore throat. EYES: No pain in eyes, discharge or change in vision. GASTROINTESTINAL: As per HPI. Past Medical History Past Medical History: Heart Failure, COPD, Diabetes Mellitus, Hyperlipidemia, Hypertension, Musculoskeletal Disorder Additional Past Medical History / Comment(s): recent admission for CHF & SOB, sciatic back pain down right leg History of Any Multi-Drug Resistant Organisms: None Reported Past Surgical History: Adenoidectomy, Appendectomy, Cholecystectomy, Heart Catheterization, Tonsillectomy Additional Past Surgical History / Comment(s): epidural-back pain Past Anesthesia/Blood Transfusion Reactions: No Reported Reaction Past Psychological History: No Psychological Hx Reported Smoking Status: Former smoker Past Alcohol Use History: Occasional Past Drug Use History: None Reported - Past Family History Mother Family Medical History: No Reported History Medications and Allergies Home Medications Medication Instructions Recorded Confirmed Type Atorvastatin [Lipitor] 40 mg PO DAILY 11/03/18 01/11/19 History Cholecalciferol [Vitamin D3 (25 1,000 unit PO DAILY 11/03/18 01/11/19 History Mcg = 1000 Iu)] Omeprazole 20 mg PO DAILY PRN 11/03/18 01/11/19 History Solifenacin Succinate [Vesicare] 10 mg PO DAILY 11/03/18 01/11/19 History Aspirin 81 mg PO DAILY chew 11/06/18 01/11/19 Rx Metoprolol Succinate (ER) [Toprol 25 mg PO DAILY #30 tab.er.24h 11/06/18 01/11/19 Rx XL] Potassium Chloride ER [K-Dur 20] 20 meq PO DAILY #30 tab 11/06/18 01/11/19 Rx Clopidogrel Bisulfate [Plavix] 75 mg PO DAILY #30 tab 11/28/18 01/11/19 Rx Furosemide [Lasix] 20 mg PO BID 01/11/19 01/11/19 History Sacubitril/Valsartan [Entresto 24 1 tab PO BID 01/11/19 01/11/19 History mg-26 mg Tablet] Allergies Allergy/AdvReac Type Severity Reaction Status Date / Time No Known Allergies Allergy Verified 01/11/19 13:54 Physical Exam Vitals: Vital Signs Temp Pulse Pulse Resp BP BP Pulse Ox 01/12/19 21:15 98.4 F 82 18 115/71 96 01/12/19 11:08 97.4 F L 68 16 89/59 96 01/12/19 05:35 98.3 F 67 16 106/88 92 L Intake and Output 01/12/19 01/12/19 01/13/19 14:59 22:59 06:59 Intake Total 1280 400 Balance 1280 400 Intake: Intake, IV Titration 800 400 Amount 0.9% NaCl with KCl 40 Meq 800 400 /l 1,000 ml @ 100 mls/hr IV .Q10H BRET Rx#: [id number] Oral 480 Other: Voiding Method Bedside Commode Bedside Commode Diaper Diaper # Voids 3 On physical examination, patient appears comfortable in no apparent distress. HEAD: Normocephalic, atraumatic. EYES: No scleral icterus. No conjunctival injection. MOUTH: No lesions, tongue midline. NECK: Trachea midline, no gross abnormalities. CHEST: Clear to auscultation with no wheezing or rhonchi appreciated. HEART: Regular rate and rhythm. ABDOMEN: Soft, obese. Bowel sounds are positive. No organomegaly. No guarding or rigidity. EXTREMITIES: No pedal edema. SKIN: No rashes, no jaundice. NEUROLOGIC: Alert and oriented x3. No focal deficits. Results CBC & Chem 7: 01/12/19 08:58 01/13/19 08:32 Labs: Abnormal Lab Results - Last 24 Hours (Table) 01/12/19 01/12/19 01/12/19 Range/Units 03:55 06:50 08:58 Chloride 110 H (98-107) mmol/L Carbon Dioxide 16 L (22-30) mmol/L BUN 68 H (7-17) mg/dL Creatinine 2.71 H (0.52-1.04) mg/dL Glucose 147 H (74-99) mg/dL POC Glucose (mg/dL) 113 H (75-99) mg/dL Urine Appearance Turbid H (Clear) Urine Protein 1+ H (Negative) Urine Blood Moderate H (Negative) Ur Leukocyte Esterase Large H (Negative) Urine RBC 34 H (0-5) /hpf Urine WBC >182 H (0-5) /hpf Urine WBC Clumps Many H (None) /hpf Urine Bacteria Many H (None) /hpf 01/12/19 01/12/19 01/12/19 Range/Units 11:06 17:07 20:36 Chloride (98-107) mmol/L Carbon Dioxide (22-30) mmol/L BUN (7-17) mg/dL Creatinine (0.52-1.04) mg/dL Glucose (74-99) mg/dL POC Glucose (mg/dL) 113 H 111 H 124 H (75-99) mg/dL Urine Appearance (Clear) Urine Protein (Negative) Urine Blood (Negative) Ur Leukocyte Esterase (Negative) Urine RBC (0-5) /hpf Urine WBC (0-5) /hpf Urine WBC Clumps (None) /hpf Urine Bacteria (None) /hpf Microbiology - Last 24 Hours (Table) 01/11/19 18:00 Stool Culture - Preliminary Stool CT scan - abdomen: report reviewed (Computed tomography scan with findings of a fluid-filled colon and other findings.) Assessment and Plan (1) Diarrhea Narrative/Plan: 73-year-old male with multiple medical comorbidities presenting with 2 weeks of diarrhea. EIA for Clostridium difficile negative. Other stool testing negative today. Patient presented dehydrated secondary to frequent episodes of loose watery bowel movements daily. No prior episodes and the patient denies any triggers such as antibiotics, sick contacts, new medications. She did have metformin discontinued in the outpatient setting to the incisors that may be causing the diarrhea. Suspicion at this time is for infectious etiology and we'll continue symptomatic support while we wait other testing. Current Visit: Yes Status: Acute Code(s): R19.7 - DIARRHEA, UNSPECIFIED SN OMED Code(s): 13632609 Plan: Supportive care Okay for diet as tolerated, lactose-free and low fiber Continue to monitor stool output PCR for Clostridium difficile ordered Testing for Giardia and cryptosporidium ordered Cholestyramine twice daily ordered We'll change Imodium to Lomotil as needed for diarrhea Thank you for allowing us participate in the care of this patient we will continue to follow
[2019-01-13 17:14] LABS: Glucose,Whole Blood 104 mg/dL (75-99)
[2019-01-13] MEDS: CHOLESTYRAMINE (WITH SUGAR) 4 GM PACKET PO SCH (17:50)
[2019-01-13 19:50] LABS: Glucose,Whole Blood 134 mg/dL (75-99)
--- NOTE | 2019-01-13 22:46 | P.PN ---
Subjective Progress Note Date: 01/13/19 Principal diagnosis: Diarrhea Patient still reporting 3 small liquid bowel movements today. Tolerating liquid diet. Objective - Vital Signs Vital signs: Vital Signs Temp 98.1 F 01/13/19 12:09 Pulse 70 01/13/19 12:09 Resp 17 01/13/19 12:09 BP 94/44 01/13/19 12:09 Pulse Ox 99 01/13/19 12:09 Intake & Output 01/12/19 01/13/19 01/13/19 18:59 06:59 18:59 Intake Total 1280 1200 Balance 1280 1200 Weight 86.636 kg Intake: Intake, IV Titration 800 1200 Amount 0.9% NaCl with KCl 40 Meq 800 1200 /l 1,000 ml @ 100 mls/hr IV .Q10H BRET Rx#: [id number] Oral 480 Other: Voiding Method Bedside Commode Bedside Commode Bedside Commode Diaper Diaper Diaper # Voids 3 4 # Bowel Movements 4 - Exam On physical examination, patient appears comfortable in no apparent distress. HEAD: Normocephalic, atraumatic. EYES: No scleral icterus. No conjunctival injection. MOUTH: No lesions, tongue midline. NECK: Trachea midline, no gross abnormalities. CHEST: Decreased air entry in all lung shepherd. ABDOMEN: Soft, obese. Bowel sounds are positive. No organomegaly. No guarding or rigidity. EXTREMITIES: No pedal edema. SKIN: No rashes, no jaundice. NEUROLOGIC: Alert and oriented x3. No focal deficits. - Labs CBC & Chem 7: 01/12/19 08:58 01/13/19 08:32 Labs: Abnormal Lab Results - Last 24 Hours (Table) 01/12/19 01/12/19 01/13/19 Range/Units 17:07 20:36 06:44 Chloride (98-107) mmol/L Carbon Dioxide (22-30) mmol/L BUN (7-17) mg/dL Creatinine (0.52-1.04) mg/dL Glucose (74-99) mg/dL POC Glucose (mg/dL) 111 H 124 H 114 H (75-99) mg/dL 01/13/19 01/13/19 Range/Units 08:32 11:23 Chloride 117 H (98-107) mmol/L Carbon Dioxide 16 L (22-30) mmol/L BUN 45 H (7-17) mg/dL Creatinine 1.49 H (0.52-1.04) mg/dL Glucose 146 H (74-99) mg/dL POC Glucose (mg/dL) 121 H (75-99) mg/dL Assessment and Plan (1) Diarrhea Narrative/Plan: 73-year-old male with multiple medical comorbidities presenting with 2 weeks of diarrhea. EIA for Clostridium difficile negative. Other stool testing negative today. Patient presented dehydrated secondary to frequent episodes of loose watery bowel movements daily. No prior episodes and the patient denies any triggers such as antibiotics, sick contacts, new medications. She did have metformin discontinued in the outpatient setting to the incisors that may be causing the diarrhea. Suspicion at this time is for infectious etiology and we'll continue symptomatic support while we wait other testing. Current Visit: Yes Status: Acute Code(s): R19.7 - DIARRHEA, UNSPECIFIED SNOMED Code(s): 73348540 Plan: Supportive care Okay for diet as tolerated, lactose-free and low fiber Continue to monitor stool output PCR for Clostridium difficile ordered Testing for Giardia and cryptosporidium ordered Cholestyramine twice daily ordered We'll change Imodium to Lomotil as needed for diarrhea Thank you for allowing us participate in the care of this patient we will continue to follow
[2019-01-14 06:59] LABS: Glucose,Whole Blood 105 mg/dL (75-99)
[2019-01-14] MEDS: INSULIN ASPART (NovoLOG) 100 UNIT/ML VIAL SQ SCH ×4 (07:15→19:55)
[2019-01-14] MEDS: PANTOPRAZOLE 40 MG TABLET PO SCH (09:26)
[2019-01-14] MEDS: CLOPIDOGREL 75 MG TAB PO SCH (09:27)
[2019-01-14] MEDS: METOPROLOL SUCCINATE (ER) 25 MG TAB.ER.24H PO SCH (09:27)
[2019-01-14] MEDS: ATORVASTATIN 40 MG TAB PO SCH (09:27)
[2019-01-14] MEDS: CHOLESTYRAMINE (WITH SUGAR) 4 GM PACKET PO SCH ×2 (09:28→17:24)
[2019-01-14] MEDS: ASPIRIN 81 MG PO SCH (09:29)
--- NOTE | 2019-01-14 10:04 | P.PN ---
Subjective Progress Note Date: 01/14/19 Principal diagnosis: Diarrhea Patient was seen and examined. No acute events overnight. Patient reports minimal to no improvement in symptoms. She reports about 6 bowel movements from yesterday morning until this morning. Described as liquid brown, no bulk. No blood. She denies any chest pain, shortness of breath or palpitations. No nausea or vomiting. No fever or chills. Patient reports poor appetite, was picking at her breakfast this morning, minimal food intake. Objective - Vital Signs Vital signs: Vital Signs Temp 97.6 F 01/14/19 07:35 Pulse 72 01/14/19 07:35 Resp 18 01/14/19 07:35 BP 126/66 01/14/19 07:35 Pulse Ox 98 01/14/19 05:00 Intake & Output 01/13/19 01/14/19 01/14/19 18:59 06:59 18:59 Intake Total 200 Balance 200 Weight 85.502 kg Intake: Oral 200 Other: Voiding Method Bedside Commode Bedside Commode Diaper Diaper # Voids 4 3 # Bowel Movements 4 1 - Exam General: [non toxic], [no distress, obese], [appears at stated age] Derm: [warm], [dry] Head: [atraumatic], [normocephalic], [symmetric] Eyes: [EOMI], [no lid lag], [anicteric sclera] Mouth: [no lip lesion], [mucus membranes moist] Cardiovascular: [S1S2 reg], [no murmur], [positive DP pulse bilateral], Lungs: [Clear to auscultation bilateral], [no rhonchi, no rales] , [no accessory muscle use] Abdominal: [soft], [ nontender to palpation], [no guarding], [no appreciable organomegaly], [normal bowel sounds] Ext: [no gross muscle atrophy], [no edema], [no contractures] Neuro: [no focal neuro deficits] Psych: [Alert], [oriented], [appropriate affect] - Labs CBC & Chem 7: 01/12/19 08:58 01/13/19 08:32 Labs: Abnormal Lab Results - Last 24 Hours (Table) 01/13/19 01/13/19 01/13/19 Range/Units 11:23 17:13 19:49 POC Glucose (mg/dL) 121 H 104 H 134 H (75-99) mg/dL 01/14/19 Range/Units 06:58 POC Glucose (mg/dL) 105 H (75-99) mg/dL Microbiology - Last 24 Hours (Table) 01/11/19 18:00 Stool Culture - Preliminary Stool Assessment and Plan Assessment: Acute diarrhea, unknown etiology, C. diff ruled out. Acute kidney injury, prerenal due to dehydration Type 2 diabetes mellitus Obesity Resolved: Hypokalemia, hypomagnesemia Chronic conditions: CHF with EF 20-25%, COPD, hypertension, dyslipidemia, CAD with recent stent placement C. diff negative. Stool culture sent. Stool for occult blood positive. Plans: Conservative management for acute diarrhea. Start Imodium scheduled. Stool sent for Giardia, cryptosporidium, C. diff. DC IVF and encourage hydration by mouth. Cholestyramine and Lomotil started by GI. Change Protonix to by mouth daily. Zofran as needed for nausea or vomiting. Follow GI consultation. BUN 70-68-45, creatinine 3.09-2.71-1.49. Likely due to dehydration. Plans: Continue IVF as above. Avoid nephrotoxins. Follow repeat BMP tomorrow morning. Fxreo-rc-[id number] glucose 105. Plans: Insulin sliding scale. Regular Accu-Cheks. Hypoglycemic precautions. BMI 33. 4. Plans: Structured weight loss program. Resume aspirin, Lipitor, Plavix and metoprolol for history of CAD, dyslipidemia and hypertension. Entresto held due to worsening creatinine. Patient's COPD is currently well controlled. [Patient admitted for diarrhea. Has not improved. Stool culture, C. diff and cryptosporidium pending. FOBT positive. Discussed with GI SANDWICH MAKER, possible colonoscopy tomorrow, to be decided. Repeat BMP in the morning. She is pending clinical improvement. Likely DC in 1-2 days.]
[2019-01-14 11:26] LABS: Glucose,Whole Blood 104 mg/dL (75-99)
--- NOTE | 2019-01-14 13:42 | CDI ---
Documentation Clarification Form Date: 01/14/2019 1:27:10 PM From: Maureen Whittington CCS, CCDS Admit Date: 01/13/2019 1:16:00 PM Patient Name: Tsering Luna Visit Number: [id number] Discharge Date: ATTENTION: The Clinical Documentation Specialists (CDI) and [facility] Coding Staff appreciate your assistance in clarifying documentation. Please respond to the clarification below the line at the bottom and electronically sign. The CDI & [facility] Coding staff will review the response and follow-up if needed. Please note: Queries are made part of the Legal Health Record. If you have any questions, please contact the author of this message via ITS. Dr. Kali Ansari: Per the ED note & the GI consult: CHF is documented as a history & chronic condition. Per the 01/12 - 01/14 attending progress notes: "Chronic conditions: CHF with EF 20-25%, COPD, hypertension, dyslipidemia, CAD with recent stent placement." History/Risk Factors: Chronic conditions as above. DM, Sciatic back pain down right leg & former smoker. Clinical Indicators: Presented with diarrhea & occasional nausea, diagnosed with dehydration & LAM secondary to diarrhea. VS: T 97.8 - 97.4*, P 67 - 71, R 18, BP 83/44*, PO 98 RA BNP (11/03/2018): 3890 Echocardiogram Results (11/03/2018): Systolic severely impaired w/EF 20-25%, Mild aortic valve sclerosis, Mod MR, Mild TR, Moderate pulmonary hypertension. Chest X Ray (11/06/2018): Interval marked improvement in the interstitium suggestive of resolving interstitial edema or pneumonitis. Treatment: IV fluid bolus, IV Kcl, IV Zofran, IV MagSulf. Home medications include: KDur, Lipitor, Entresto, Toprol, Lasix 20 mg BID, Plavix & low dose aspirin In your professional opinion, can you please clarify the acuity and type of CHF if known? CHF ruled out CHF ruled in: o Acuity: Chronic o Type: Systolic Other CHF, please specify: Other, please specify: Unable to Determine (Last Revision: June 2017) chronic systolic chf MTDD
[2019-01-14] MEDS ORDERED: CALCIUM CARBONATE 500 MG CHEWABLE PO PRN (13:47)
[2019-01-14] MEDS ORDERED: CALCIUM CARBONATE LIQUID 500 MG/5 ML CUP PO PRN (17:05)
[2019-01-14 17:20] LABS: Glucose,Whole Blood 114 mg/dL (75-99)
--- NOTE | 2019-01-14 18:09 | PN ---
PROGRESS NOTE DATE OF DICTATION: 01/14/2019 The patient is a 73-year-old pleasant white female admitted to the hospital with diarrhea for the last 3 weeks' duration. She has been having bowel movements anywhere from 5 to 6 per day which are watery in consistency, but no blood or mucus in the stool. She did have stool studies done which were all reported as negative. She was started on Questran as well as Lomotil yesterday and this morning she had one bowel movement so far which was pasty in consistency. She denies any abdominal pain. No rectal bleeding. Her last colonoscopy was in [address] Mahoney. That was normal. She reports no abdominal pain. No nausea, vomiting. PHYSICAL EXAMINATION: Appears comfortable. No apparent distress. VITAL SIGNS: Stable. Blood pressure is 125/55, pulse rate 70, temperature 97.8. She appears comfortable. No apparent distress. HEENT: Conjunctivae pink. Sclerae anicteric. Oral cavity no lesions. NECK: No JVD or lymph node enlargement. CHEST: Clear to auscultation. HEART: Regular rate and rhythm. ABDOMEN: Soft. Bowel sounds are positive. No organomegaly. EXTREMITIES: No pedal edema. SKIN: No rashes. NEUROLOGIC: Alert and oriented x3. No focal deficits. LABS FROM TODAY: Basic metabolic panel showed BUN of 45, creatinine of 1.49. CBC was normal. Stool for C difficile toxin is negative. Occult blood was positive. IMPRESSION: 1. Acute onset of diarrhea for the last 2 to 3 weeks' duration. Stool studies so far negative except for stool occult blood, which was positive. The patient was started on Lomotil one tablet 3 times daily yesterday as well as Questran one packet twice daily. Her diarrhea seems to be gradually improving. 2. History of coronary artery disease, status post cardiac stent placement 2 months ago, at present on aspirin and Plavix. RECOMMENDATIONS: Since the stool studies have been negative, I recommended continuing with supportive and symptomatic care with antimotility agents, including Lomotil one tablet 4 times daily as needed and also continue with Questran for now. I did discuss the possibility of doing a colonoscopy, but given the recent stent placement and the fact that the patient is on aspirin and Plavix, it is not advisable for endoscopic intervention at this time. However, if she continues to have persistent worsening diarrhea, we may have to do a colonoscopy in the near future. However, if her symptoms continue to improve, we can discharge her home in 1 to 2 days with outpatient followup and plans for a colonoscopy at a later date. The plan was discussed with the patient. She is agreeable to it. Thank you for this consultation. TORO / BRYCE: [id number] /
[2019-01-14 19:46] LABS: Glucose,Whole Blood 124 mg/dL (75-99)
[2019-01-15 07:02] LABS: Glucose,Whole Blood 95 mg/dL (75-99)
[2019-01-15] MEDS: INSULIN ASPART (NovoLOG) 100 UNIT/ML VIAL SQ SCH ×2 (07:26→11:33)
[2019-01-15 07:50] LABS: Calcium 9.2 mg/dL (8.4-10.2)
[2019-01-15 07:55] LABS: Potassium 4.1 mmol/L (3.5-5.1)
[2019-01-15] MEDS: PANTOPRAZOLE 40 MG TABLET PO SCH (08:45)
[2019-01-15] MEDS: METOPROLOL SUCCINATE (ER) 25 MG TAB.ER.24H PO SCH (08:45)
[2019-01-15] MEDS: ASPIRIN 81 MG PO SCH (08:45)
[2019-01-15] MEDS: ATORVASTATIN 40 MG TAB PO SCH (08:45)
[2019-01-15] MEDS: CLOPIDOGREL 75 MG TAB PO SCH (08:46)
[2019-01-15] MEDS: CHOLESTYRAMINE (WITH SUGAR) 4 GM PACKET PO SCH (08:46)
[2019-01-15] MEDS ORDERED: ACETAMINOPHEN TAB 325 MG TAB PO PRN (09:10)
[2019-01-15 11:24] LABS: Glucose,Whole Blood 106 mg/dL (75-99)
[2019-01-15 12:36] VITALS: BP 136/66; PULSE 71; RESP 18; TEMP 97.3
--- NOTE | 2019-01-15 14:19 | P.DS ---
Providers Date of admission: 01/13/19 13:16 Expected date of discharge: 01/15/19 Attending physician: Padmini Hay DO Consults: 01/11/19 13:48 Consult Physician Urgent Consulting Provider: Lauri Mahoney Reason/Comments: intractable diarrhea, LAM Do you want consulting provider notified?: Yes Primary care physician: Milo Lora Hospital Course: Discharge diagnosis Acute diarrhea Acute kidney injury Hypokalemia Hypomagnesemia Type 2 diabetes Ischemic cardiomyopathy Right adrenal incidentaloma 73-year-old female with past medical history of CHF, COPD, diabetes mellitus, hypertension, dyslipidemia, CAD with recent stent placement in November presented to the ED for worsening diarrhea. Patient reports a two-week history of diarrhea with at least 3-7 bowel movements per day described as watery and runny. She denied any blood in her stool. She denied any sick contacts. She did report a decrease appetite and nausea but no vomiting. She had visited her PCP, who discontinued metformin without relief. In the ED, CT of the abdomen and pelvis was performed which showed no acute findings but 12 mm nodule in the right adrenal gland most likely adenoma. In the ED, vital signs are stable. CBC showed leukocytosis of 11. CMP shows that patient was hypokalemic with potassium of 3.4, acidotic with bicarbonate of 21 and worsening creatinine of 3.09. Magnesium was also low at 1.4. Lactic acid was negative. Amylase and lipase was negative. Urinalysis showed moderate blood and large leukocyte esterase, though asymptomatic. Patient was admitted for acute diarrhea, rule out Clostridium difficile, and dehydration. C. diff was ruled out. Stool culture had no growth was negative for Salmonella, E coli and Shiga toxin. The patient's fluids and electrolytes were replaced with IV fluids and she was placed on potassium and magnesium replacement protocol. The patient was placed Questran and Lomotil which eventually resolved her diarrhea. The patient was seen by GI who discussed possible colonoscopy but eventually decided against proceeding with endoscopy as the patient was still on aspirin. Patient was advised to follow-up with her PCP Dr. Lora regarding her right adrenal adenoma. The patient was discharged home in stable condition initial visit follow-up with her PCP. This discharge process took approximately 35 minutes. Focused exam Abdomen: Soft nontender nondistended normal bowel sounds all 4 quadrants Patient Condition at Discharge: Stable Plan - Discharge Summary New Discharge Prescriptions: New Diphenox-Atrop 2.5-0.025 mg [Lomotil] 1 each PO Q8HR PRN #30 tab PRN Reason: Diarrhea Continue Cholecalciferol [Vitamin D3 (25 Mcg = 1000 Iu)] 1,000 unit PO DAILY Solifenacin Succinate [Vesicare] 10 mg PO DAILY Omeprazole 20 mg PO DAILY PRN PRN Reason: Heartburn Atorvastatin [Lipitor] 40 mg PO DAILY Aspirin 81 mg PO DAILY chew Metoprolol Succinate (ER) [Toprol XL] 25 mg PO DAILY #30 tab.er.24h Potassium Chloride ER [K-Dur 20] 20 meq PO DAILY #30 tab Clopidogrel Bisulfate [Plavix] 75 mg PO DAILY #30 tab Sacubitril/Valsartan [Entresto 24 mg-26 mg Tablet] 1 tab PO BID Furosemide [Lasix] 20 mg PO BID Discharge Medication List Atorvastatin [Lipitor] 40 mg PO DAILY 11/03/18 [History] Cholecalciferol [Vitamin D3 (25 Mcg = 1000 Iu)] 1,000 unit PO DAILY 11/03/18 [History] Omeprazole 20 mg PO DAILY PRN 11/03/18 [History] Solifenacin Succinate [Vesicare] 10 mg PO DAILY 11/03/18 [History] Aspirin 81 mg PO DAILY chew 11/06/18 [Rx] Metoprolol Succinate (ER) [Toprol XL] 25 mg PO DAILY #30 tab.er.24h 11/06/18 [Rx] Potassium Chloride ER [K-Dur 20] 20 meq PO DAILY #30 tab 11/06/18 [Rx] Clopidogrel Bisulfate [Plavix] 75 mg PO DAILY #30 tab 11/28/18 [Rx] Furosemide [Lasix] 20 mg PO BID 01/11/19 [History] Sacubitril/Valsartan [Entresto 24 mg-26 mg Tablet] 1 tab PO BID 01/11/19 [History] Diphenox-Atrop 2.5-0.025 mg [Lomotil] 1 each PO Q8HR PRN #30 tab 01/15/19 [Rx] Follow up Appointment(s)/Referral(s): Milo Lora MD [Primary Care Provider] - 01/16/19 11:30 am Caitie Pinedo MD [STAFF PHYSICIAN] - 1 Week (Patient to call Dr. Pinedo's office Riki morning to schedule follow up appointment. The computers are down at the office, per office staff. ) Patient Instructions/Handouts: Diphenoxylate/Atropine (By mouth), Dehydration (DC), Acute Kidney Injury (DC) Discharge Disposition: HOME SELF-CARE
== END 2019-01-15 12:50 | disposition home or self-care (01) | DRG 392 ==
LOC: EC 11:13 → 3NMEDONC 13:47 → OBSVTOIN 01-13 13:16 → 3NMEDONC 01-13 16:34
PROVIDERS: ADMIT Internal Medicine; ATTEND Internal Medicine
DX: R19.7 Diarrhea, unspecified (principal); E87.2 Acidosis; I50.22 Chronic systolic (congestive) heart failure; N17.9 Acute kidney failure, unspecified; I95.9 Hypotension, unspecified; E86.0 Dehydration; I11.0 Hypertensive heart disease with heart failure; J44.9 Chronic obstructive pulmonary disease, unspecified; E83.42 Hypomagnesemia; I25.5 Ischemic cardiomyopathy; E11.9 Type 2 diabetes mellitus without complications; D35.01 Benign neoplasm of right adrenal gland; D72.829 Elevated white blood cell count, unspecified; E66.9 Obesity, unspecified; E78.5 Hyperlipidemia, unspecified; E87.6 Hypokalemia; I25.10 Atherosclerotic heart disease of native coronary artery without angina pectoris; R32 Unspecified urinary incontinence; R19.5 Other fecal abnormalities; Z68.33 Body mass index [BMI] 33.0-33.9, adult; Z79.02 Long term (current) use of antithrombotics/antiplatelets; Z79.82 Long term (current) use of aspirin; Z79.899 Other long term (current) drug therapy; Z87.891 Personal history of nicotine dependence; Z95.5 Presence of coronary angioplasty implant and graft; Z90.49 Acquired absence of other specified parts of digestive tract
CPT/HCPCS: 36415; 74176; 80048; 80053; 81001; 82272; 83605; 83690; 83735; 84132; 85025; 85610; 85730; 87045; 87046; 87324; 93005; 96361; 96365; 96375; 99285

== ENCOUNTER 2019-04-07 07:19 | Day surgery (SDC) | payer MEDICARE ==
[2019-04-03 13:27] VITALS: BMI 33.6
[~2019-04-07 07:19] MED LIST: HYDROmorphone 0.5 MG/0.5 ML SYRINGE IVP PRN; MIDAZOLAM 2 MG/2 ML VIAL IV PRN
[2019-04-07] MEDS: SODIUM CHLORIDE 0.9% 1,000 ML IV SCH ×3 (07:44→11:40)
[2019-04-07] MEDS ORDERED: LIDOCAINE 1% INJ 10MG/ML (20 ML MDV) ONE (07:51)
[2019-04-07] MEDS ORDERED: ceFAZolin 1,000 MG in SODIUM CHLORIDE 0.9% IRRIGATIO 250 ML IRRIGATION ONE (08:00)
[2019-04-07] MEDS ORDERED: PROPOFOL 10 MG/ML 20 ML VIAL IV ONE (08:53)
[2019-04-07] MEDS ORDERED: MIDAZOLAM 2 MG/2 ML VIAL ONE (08:53)
[2019-04-07] MEDS ORDERED: fentaNYL (PF) 50 MCG/ML 2 ML AMP ONE (08:53)
[2019-04-07] MEDS ORDERED: IOPAMIDOL-370 50ML BTL INJ ONE (09:17)
[2019-04-07] MEDS ORDERED: LIDOCAINE 1% INJ 10MG/ML (20 ML MDV) SQ ONE (09:36)
--- NOTE | 2019-04-07 10:57 | P.PCN ---
Date of Procedure: 04/07/19 Preoperative Diagnosis: This is a 73-year-old female with history of ischemic cardiac myopathy and chronic CHF and episodes of bradycardia who was referred for AICD implantation, dual-chamber. Patient has history of diabetes, hypertension and needs to be on beta roberta. Patient was explained the risks and benefits of the procedure which. She accepted. Postoperative Diagnosis: The same Description of Procedure: HISTORY: This patient with history of ischemic cardiac myopathy and chronic CHF is referred for implantation of dual-chamber ICD but bradycardia CHF and need for beta roberta usage. CONSENT:I have discussed the risks, benefits and alternative therapies for the above-mentioned procedure and for both sedation/analgesia as well as necessary blood product administration, if indicated, as they pertain to this patient. The patient has indicated understanding and acceptance of the risks and procedures discussed. PROCEDURE: Patient was brought to the lab in a fasting state. Patient was prepped and draped in the usual fashion. Patient was given IV sedation by department of anesthesia The skin below the left clavicle was infiltrated with lidocaine. An incision was made parallel to deltopectoral groove was deepened until the pectoral fascia was exposed. A pocket was created by blunt dissection and cautery. Axillary venography was performed to delineate the course of the axillary vein. 2 sticks were performed into extrathoracic portion of the axillary vein and 2 sheaths were advanced over the guidewires and left in subclavian vein. Conscious Sedation: As per anesthesia Fentanyl Duration 59 minutes LEADS: ATRIAL: This is manufactured by [employer]. Model number is 5076-45 and the serial number is [id number] VENTRICULAR:. This is manufactured by [employer]. Model number is [id number] and the serial number is [id number] THE DEVICE: This is manufactured by [employer]. Model number is [id number] and the serial number is [id number]. The ventricular lead is maneuvered l with help of a straight and curved stylets into the left ventricle apical. Apical regions could not provide satisfactory threshold.. Satisfactory position was obtained and threshold measurements were made. The atrial lead was then maneuvered into the right atrial appendage. And thresholds were obtained. THRESHOLDS: ATRIUM: The minimal threshold was 1 at a pulse width of 0.5. The impedance was 6 and 8 ohms. P-wave: 4.8. Through the device. The atrial threshold was 0.5 at pulse width of 0.4 with the P waves were 3.9 VENTRICLE: The minimal patient threshold was 0.5 at pulse width of 0.5. The impedance is 591 R-wave: 16.9 The leads and pulse generator remained in the pocket after it was washed with antibiotics. Pocket was closed in the usual fashion. The fascia was closed with 2-0 Prolene ,the subcutaneous tissue was closed with 3-0 Prolene and the skin was closed with 4-0 Prolene. DFT TESTING:: Patient was given the sedation by department of anesthesia. Ventricular fibrillation was induced with T shock. Patient converted to sinus rhythm with 15 J shock. There is appropriate sensing with one dropout. PROGRAMMING: ASHA PROGRAMMING. MODE: AAIR to DDDR RATE: 60 to 1:30 OUTPUT: Atrium : 3.5 Ventricle: 3.5 . Tachycardia. Programming: The VF zone is programmed to a rate of 200. The therapies are programmed to 225 J followed by 355. The VT zone is programmed to a rate of 170. Therapies are programmed to burst and ramp pacing followed by cardioversion at 25 followed by cardioversion at 353. The monitor zone is programmed to a rate of 150 . FINAL IMPRESSION: 1. Axillary venography #2. Successful implantation of dual- chamber pacemaker COMPLICATIONS: None PlAN: Continue prophylactic antibiotics. Monitored on the telemetry unit. Chest x-ray in the morning. Possible discharge in am
[2019-04-07] MEDS ORDERED: PANTOPRAZOLE 40 MG TABLET PO PRN (11:01)
[2019-04-07] MEDS: LACTATED RINGERS 1,000 ML IV SCH ×2 (11:55→21:41)
[2019-04-07] MEDS: FUROSEMIDE 20 MG TAB PO SCH (16:45)
[2019-04-07] MEDS: ACETAMINOPHEN TAB 325 MG TAB PO PRN (16:47)
[2019-04-07] MEDS: SACUBITRIL/VALSARTAN 24 MG-26 MG TABLET PO SCH (20:40)
[2019-04-08] MEDS: SODIUM CHLORIDE 0.9% 1,000 ML IV SCH (03:00)
[2019-04-08 04:12] VITALS: RESP 18
[2019-04-08] MEDS: ACETAMINOPHEN TAB 325 MG TAB PO PRN (04:32)
--- NOTE | 2019-04-08 08:44 | XR ---
EXAMINATION TYPE: XR chest 2V DATE OF EXAM: 04/08/2019 COMPARISON: Prior chest x-ray 11/06/2018, chest CT 11/05/2018 HISTORY: Lead placement check TECHNIQUE: Frontal and lateral views of the chest are obtained. FINDINGS: There is been interval placement of a generator in the left pectoral region, there are bridger ds in right atrium and ventricle. No evident pneumothorax or pleural effusion. Postop changes are not ed to the humerus and there are surgical clips in the right upper quadrant. There are overlying cardi ac leads. Right hemidiaphragm remains elevated. Cardiac mediastinal silhouette, pulmonary vascularity and rosaura are stable. Mild prominence of interstitium is noted. There are overlying artifacts. Previo usly identified lung nodule is not seen with certainty on plain film. IMPRESSION: No evident complication status post defibrillator placement.
[2019-04-08] MEDS ORDERED: TROSPIUM CHLORIDE 20 MG TABLET PO SCH (09:00)
[2019-04-08] MEDS ORDERED: POTASSIUM CHLORIDE ER 20 MEQ TAB.ER PO SCH (09:00)
[2019-04-08] MEDS ORDERED: CHOLECALCIFEROL 1,000 UNIT TAB PO SCH (09:00)
[2019-04-08] MEDS ORDERED: ATORVASTATIN 40 MG TAB PO SCH (09:00)
[2019-04-08] MEDS ORDERED: METOPROLOL SUCCINATE (ER) 25 MG TAB.ER.24H PO SCH (09:00)
[2019-04-08] MEDS: SACUBITRIL/VALSARTAN 24 MG-26 MG TABLET PO SCH (09:02)
[2019-04-08] MEDS: FUROSEMIDE 20 MG TAB PO SCH (09:02)
[2019-04-08 11:02] VITALS: BP 102/65; PULSE 72; TEMP 97.4
--- NOTE | 2019-04-09 08:38 | P.DS ---
Providers Date of admission: 04/07/2019 Attending physician: Lola García Primary care physician: Milo Lora - Discharge Diagnosis(es) (1) Ischemic cardiomyopathy Status: Acute (2) Chronic CHF Status: Acute (3) S/P implantation of automatic cardioverter/defibrillator (AICD) Status: Acute Hospital Course: This patient with history of ischemic cardiac myopathy and chronic systolic congestive heart failure with ejection fraction about 30-35%. Was brought in for elective prophylactic AICD implantation. Patient had a dual-chamber device implantation without any complications. Remained stable overnight without any complications. Complaints of mild tenderness procedure site. The dressing appears dry with mild staining. No evidence of any hematoma. The pressure dressing was removed. Patient's chest x-ray showed proper lead position. The thresholds are stable. Patient is tolerating activity very well. Patient is being discharged home in patient is given usual post procedure instructions especially patient is advised to avoid any heavy lifting, pushing, pulling with left arm. Advised not to lift both shoulder level. Advised to contact us if she develops any fever, chills or undue pain or bleeding. Follow-up with Dr. Pinedo in the office in one week along with pacemaker clinic. Plan - Discharge Summary Discharge Rx Participant: Yes New Discharge Prescriptions: New Cephalexin [Keflex] 500 mg PO Q8HR #10 cap Continue Cholecalciferol [Vitamin D3 (25 Mcg = 1000 Iu)] 1,000 unit PO DAILY Solifenacin Succinate [Vesicare] 10 mg PO DAILY Omeprazole 20 mg PO DAILY PRN PRN Reason: Heartburn Atorvastatin [Lipitor] 40 mg PO DAILY Aspirin 81 mg PO DAILY chew Metoprolol Succinate (ER) [Toprol XL] 25 mg PO DAILY #30 tab.er.24h Potassium Chloride ER [K-Dur 20] 20 meq PO DAILY #30 tab Clopidogrel Bisulfate [Plavix] 75 mg PO DAILY #30 tab Sacubitril/Valsartan [Entresto 24 mg-26 mg Tablet] 1 tab PO BID Furosemide [Lasix] 20 mg PO BID Discharge Medication List Atorvastatin [Lipitor] 40 mg PO DAILY 11/03/18 [History] Cholecalciferol [Vitamin D3 (25 Mcg = 1000 Iu)] 1,000 unit PO DAILY 11/03/18 [History] Omeprazole 20 mg PO DAILY PRN 11/03/18 [History] Solifenacin Succinate [Vesicare] 10 mg PO DAILY 11/03/18 [History] Aspirin 81 mg PO DAILY chew 11/06/18 [Rx] Metoprolol Succinate (ER) [Toprol XL] 25 mg PO DAILY #30 tab.er.24h 11/06/18 [Rx] Potassium Chloride ER [K-Dur 20] 20 meq PO DAILY #30 tab 11/06/18 [Rx] Clopidogrel Bisulfate [Plavix] 75 mg PO DAILY #30 tab 11/28/18 [Rx] Furosemide [Lasix] 20 mg PO BID 01/11/19 [History] Sacubitril/Valsartan [Entresto 24 mg-26 mg Tablet] 1 tab PO BID 01/11/19 [History] Cephalexin [Keflex] 500 mg PO Q8HR #10 cap 04/08/19 [Rx] Follow up Appointment(s)/Referral(s): Lola García MD [STAFF PHYSICIAN] - 04/13/19 2:30 pm (patient to follow up at device clinic.) Patient Instructions/Handouts: Pacemaker (DC) Activity/Diet/Wound Care/Special Instructions: activity restrictions discussed with the patient regarding post pacemaker. no strenous activity or heavy lifting. patient needs to see physician at device clinic. Discharge Disposition: HOME SELF-CARE
== END 2019-04-08 15:55 | disposition home or self-care (01) ==
LOC: CATHEP 07:19 → 1SOBS 10:34 → CATHEP 04-08 15:55
PROVIDERS: ATTEND Internal Medicine Cardiovascular Disease
DX: I25.5 Ischemic cardiomyopathy (principal); R00.1 Bradycardia, unspecified; I25.10 Atherosclerotic heart disease of native coronary artery without angina pectoris; I11.0 Hypertensive heart disease with heart failure; I50.22 Chronic systolic (congestive) heart failure; E11.9 Type 2 diabetes mellitus without complications; J44.9 Chronic obstructive pulmonary disease, unspecified; Z87.891 Personal history of nicotine dependence; G89.29 Other chronic pain; M54.9 Dorsalgia, unspecified; Z95.5 Presence of coronary angioplasty implant and graft; Z79.84 Long term (current) use of oral hypoglycemic drugs; Z79.02 Long term (current) use of antithrombotics/antiplatelets; Z79.82 Long term (current) use of aspirin; Z79.899 Other long term (current) drug therapy
CPT/HCPCS: 93641; 33249; 71046; C1769 ×2; C1892 ×2; C1898; C1895; C1721; J2250; J0690 ×2; J2001; J3010; J2704; Q9967

== ENCOUNTER → 2020-01-06 | Outpatient (CLI) | payer MEDICARE ==
--- NOTE | 2020-01-06 16:01 | CT ---
EXAMINATION TYPE: CT cervical spine wo con DATE OF EXAM: 01/06/2020 COMPARISON: NONE HISTORY: Cervicalgia, bilateral upper extremity radiculopathy cervical, bilateral arm pain. Pt c/o pa in in shoulders and neck, cannot lift arms. Denies injury. CT DLP: 912.60 mGycm. Automated Exposure Control for Dose Reduction was Utilized. TECHNIQUE: CT scan of the cervical spine is obtained without contrast, axial images are obtained, sa gittal and coronal reformatted images are also reviewed. FINDINGS: Coronal images show levoconvex scoliosis centered in the lower cervical spine. Cervical spi ne is visualized in its entirety from C1 through upper thoracic levels, demonstrates straightening of cervical spine on sagittal images without evidence of acute fracture or dislocation. Prevertebral s oft tissue appears within normal limits. The C1-C2 articulation is within normal limits on the coron al images. Vertebral body heights are maintained. Moderate to severe multilevel disc space narrowing C3-C4 through the C6-C7 levels. Spurring and subchondral cystic change noted at these levels. Posteri or spurring anterior spur disc complexes effaces anterior thecal sac at C4-C5 through the C6-C7 level s on sagittal images. Axial images at C2-C3 level are felt within normal limits. Axial images at C3-C4 level show left paracentral spur disc complex effacing at the level thecal sac, patent bilateral neural foramina. Axial images at C4-C5 level show broad-based posterior spur disc complex effacing the anterior thecal sac with additional marginal spurring causing moderate to advanced bilateral neural foraminal narrow ing. Axial images at C5-C6 level show lobulated left paracentral spur disc complex effacing anterolateral thecal sac and causing moderate to advanced left greater than right bilateral neural foraminal narrow ing. Axial images at the C6-C7 levels show left paracentral spur disc complex effacing the anterolateral t hecal sac with advanced left and moderate right-sided neural foraminal narrowing. Axial images at C7-T1 level are felt within normal limits. Thyroid gland is normal in size. Lung apices show no pneumothorax. There is partial visualization of pacemaker wires. Some patchy fluid is noted in the right maxillary sinus with chronic wall thickening , consider acute on chronic disease. Calcified plaque cavernous and supraclinoid segment of distal in ternal carotid arteries bilaterally as incidentally noted. Moderate to severe calcified plaque bilate ral carotid bulb level which has medial course is noted. IMPRESSION: Straightening of cervical spine with multilevel moderate to advanced degenerative changes C3-C4 through C6-C7 level as detailed above.
== END | disposition home or self-care (01) ==
LOC: RADCTMAIN 15:17
PROVIDERS: ATTEND Orthopaedic Surgery Orthopaedic Surgery of the Spine
DX: M47.22 Other spondylosis with radiculopathy, cervical region (principal); Z86.39 Personal history of other endocrine, nutritional and metabolic disease; M53.82 Other specified dorsopathies, cervical region; Z95.0 Presence of cardiac pacemaker
CPT/HCPCS: 72125

== ENCOUNTER → 2020-03-07 | Outpatient (CLI) | payer MEDICARE ==
--- NOTE | 2020-03-07 13:54 | P.CONS ---
History of Present Illness - Reason for Consult Consult date: 03/07/20 - Chief Complaint Neck and bilateral arm pain and numbness more on the left side than the rig - History of Present Illness This is a 74-year-old lady with a significant cardiac history and recent neck pain with radiation to both arms when she started in November 2019 with no precipitating events. The pain radiates down both hands with weakness in the left arm and numbness in both arms. The patient's pain gets worse by any movement of her left arm and she is not able to use her left arm during her daily activities because of that. The patient denies any bowel or bladder dysfunction or any weight loss. The pain does wake the patient up at night. She has never tried physical therapy because of her severe pain and inability to move her left arm. She did have a computed tomography scan of the cervical spine which showed multilevel disc space narrowing from C3-C4 through the C6-C7 level also paracentral spur disc complex at multiple levels effacing the thecal sac at the C3-C4 level and causing moderate to advanced bilateral neural foraminal narrowing at C4-C5 level and causing advanced left greater than right bilateral neural foraminal narrowing at C5-C6 level and also causing advanced left and moderate right sided neural foraminal narrowing at C6-C7 level. Past Medical History Past Medical History: Heart Failure, COPD, Diabetes Mellitus, Hyperlipidemia, Hypertension, Musculoskeletal Disorder Additional Past Medical History / Comment(s): recent admission for CHF & SOB, sciatic back pain down right leg. See Dr. García's H & P. ischemic cardiomyopathy ef of 30%. diet controlled diabetes. History of Any Multi-Drug Resistant Organisms: None Reported Past Surgical History: Adenoidectomy, Appendectomy, Cholecystectomy, Heart Catheterization, Heart Catheterization With Stent, Pacemaker, Tonsillectomy Additional Past Surgical History / Comment(s): epidural-back pain INJECTION. COLONOSCOPY. BILAT CATARACTS REMOVED WITH LENS IMPLANTS Past Anesthesia/Blood Transfusion Reactions: No Reported Reaction Date of Last Stent Placement:: 11/2018 Type of Cardiac Device: Permanent Pacemaker Device Placement Date:: 04/2019 Smoking Status: Former smoker - Past Family History Mother Family Medical History: No Reported History Medications and Allergies Home Medications Medication Instructions Recorded Confirmed Type Atorvastatin [Lipitor] 40 mg PO DAILY 11/03/18 03/02/20 History Cholecalciferol [Vitamin D3 (25 1,000 unit PO DAILY 11/03/18 03/02/20 History Mcg = 1000 Iu)] Omeprazole 20 mg PO DAILY PRN 11/03/18 03/02/20 History Solifenacin Succinate [Vesicare] 10 mg PO DAILY 11/03/18 03/02/20 History Aspirin 81 mg PO DAILY chew 11/06/18 03/02/20 Rx Metoprolol Succinate (ER) [Toprol 25 mg PO DAILY #30 tab.er.24h 11/06/18 03/02/20 Rx XL] Potassium Chloride ER [K-Dur 20] 20 meq PO DAILY #30 tab 11/06/18 03/02/20 Rx Sacubitril/Valsartan [Entresto 24 1 tab PO BID 01/11/19 03/02/20 History mg-26 mg Tablet] Cephalexin [Keflex] 500 mg PO Q8HR #10 cap 04/08/19 03/02/20 Rx metFORMIN HCL [Glucophage] 500 mg PO W/SUPPER 03/02/20 03/02/20 History Allergies Allergy/AdvReac Type Severity Reaction Status Date / Time No Known Allergies Allergy Verified 03/02/20 11:07 Physical Exam - Constitutional General appearance: morbidly obese - EENT Eyes: PERRLA - Neurologic Neuro exam of the upper extremities showed decreased strength of the deltoid muscle on the left side to 3 out of 5 and on the right side to 4 out of 5 but the rest of the muscle strength exam is within normal limits bilaterally. She has normal and symmetrical deep tendon reflexes bilaterally. Postoperative tenderness in the cervical paravertebral musculature bilaterally and in the trapezius muscles bilaterally and also around the left shoulder joint posteriorly. Neurologic: CNII-XII intact - Psychiatric Psychiatric: A&O x's 3, appropriate affect, intact judgment & insight Assessment and Plan Plan: This is a 74-year-old lady with bilateral cervical radiculopathy worse on the left side than the right side with paresthesia and weakness in the deltoid muscles bilaterally more on the left side than the right side. She has preserved deep tendon reflexes bilaterally. The patient also has significant cardiac history with coronary stents and AICD implantation however she is on Plavix and she takes only aspirin 81 mg daily. The patient will benefit from getting cervical epidural steroid injection at the C7-T1 level on the left paramedian approach under fluoroscopic guidance. I asked the patient to hold her aspirin for 2-3 days before the procedure. The procedure was explained to the patient and her questions were answered. I thank you for the referral
[2020-03-07 14:02] VITALS: BP 144/84; PULSE 78; RESP 16; TEMP 98
== END | disposition home or self-care (01) ==
LOC: PNWHC3 12:59
PROVIDERS: ATTEND Anesthesiology
DX: M54.12 Radiculopathy, cervical region (principal); Z87.891 Personal history of nicotine dependence; Z79.82 Long term (current) use of aspirin; Z79.84 Long term (current) use of oral hypoglycemic drugs; Z79.899 Other long term (current) drug therapy; Z90.49 Acquired absence of other specified parts of digestive tract; Z98.890 Other specified postprocedural states
CPT/HCPCS: 99211

== ENCOUNTER 2020-03-25 08:50 | Day surgery (SDC) | payer MEDICARE ==
[2020-03-23 16:40] VITALS: BMI 35.4
[2020-03-25 09:36] VITALS: TEMP 98.4
[2020-03-25] MEDS ORDERED: LACTATED RINGERS 1,000 ML IV ONE (09:42)
[2020-03-25 09:50] LABS: Glucose,Whole Blood 147 mg/dL (75-99)
[2020-03-25] MEDS ORDERED: DEXAMETHASONE SOD PHOSPHATE 10 MG/ML 1 ML VIAL ONE (10:11)
[2020-03-25] MEDS ORDERED: IOPAMIDOL M200 10 ML VIAL ONE (10:11)
[2020-03-25] MEDS ORDERED: fentaNYL (PF) 50 MCG/ML 2 ML AMP ONE (10:14)
[2020-03-25] MEDS ORDERED: MIDAZOLAM 2 MG/2 ML VIAL ONE (10:14)
--- NOTE | 2020-03-25 10:29 | P.PCN ---
Date of Procedure: 03/25/20 Procedure(s) Performed: . PROCEDURE 1. Cervical epidural steroid injection under fluoroscopic guidance, C7-T1 (fluoroscopy images available in the radiology department ) 2. Cervical epidurogram. PREOPERATIVE DIAGNOSIS: 1- Cervical radiculopathy. POSTOPERATIVE DIAGNOSIS: : 1- Cervical radiculopathy. ANESTHESIA: Monitored anesthesia care by anesthesia department. EBL 0 PROCEDURE INDICATION: The patient with neck pain and radiculitis unresponsive to conservative treatment consents for procedure. PROCEDURE DESCRIPTION / TECHNIQUE: The patient was seen and identified in the preoperative area. Risks, benefits, complications, including but not limited to infections ,bleeding , allergic reactions to the medications ,and not complete pain releife, and alternatives were discussed with the patient, the patient agreed to proceed with the procedure and signed the consent. Patient was taken to the OR and time out was completed. The patient was placed in the prone position on the procedure table. A pillow was placed under the patients chest to increase the cervical interlaminar space. The cervical area was prepped and draped in the usual sterile fashion. Vital signs were closely monitored during the procedure. Conscious sedation was used during the procedure to decrease patients anxiety. Using anterior-posterior fluoroscopy, the C7-T1 interlaminar space was identified and the skin over this site was marked and then infiltrated with 1% lidocaine subcutaneously. Subsequently, a 20-gauge 3-1/2-inch Tuohy epidural needle was inserted and advanced toward the epidural space by means of the ``hanging-drop technique and guided by AP and lateral fluoroscopy. The correct needle position in the epidural space was verified with the injection of 2 mL of the water soluble contrast dye Isovue-200 and observing an excellent epidurogram with the epidural spread of the dye, after negative aspiration for blood and CSF and in the absence of paresthesias. Again after negative aspiration, mixture containing 20 mg Dexamethasone and 2 ml of preservative- free normal saline injected and a washout of epidurogram was seen. Needle was withdrawn intact, skin was cleansed, and bandages were applied. Complications= none. Disposition= patient was placed in supine position and transferred to the recovery room area in stable condition and there was no evidence of upper or lower extremity motor or sensory deficit after the procedure patient was discharged from recovery room after discharge criteria met and home discharge instructions was given by the staff and patient will follow with the pain clinic in 2-4 weeks
[2020-03-25 10:34] VITALS: RESP 17
[2020-03-25 10:46] VITALS: BP 104/63; PULSE 75
--- NOTE | 2020-03-25 10:51 | FL ---
Fluoroscopy HISTORY: Pain 2 seconds fluoroscopy time supplied to the referring clinician. 1 intraoperative C-arm images docume nt the procedure. See dictated report from anesthesia.
== END 2020-03-25 11:02 | disposition home or self-care (01) ==
LOC: ORPAIN 08:50
PROVIDERS: ATTEND Specialist
DX: M54.12 Radiculopathy, cervical region (principal); I25.10 Atherosclerotic heart disease of native coronary artery without angina pectoris; I11.0 Hypertensive heart disease with heart failure; I50.9 Heart failure, unspecified; E78.5 Hyperlipidemia, unspecified; I25.9 Chronic ischemic heart disease, unspecified; J44.9 Chronic obstructive pulmonary disease, unspecified; E11.9 Type 2 diabetes mellitus without complications; K21.9 Gastro-esophageal reflux disease without esophagitis; Z79.02 Long term (current) use of antithrombotics/antiplatelets; Z97.2 Presence of dental prosthetic device (complete) (partial); Z95.5 Presence of coronary angioplasty implant and graft; Z95.810 Presence of automatic (implantable) cardiac defibrillator; Z79.84 Long term (current) use of oral hypoglycemic drugs; Z79.899 Other long term (current) drug therapy
CPT/HCPCS: 62321; J2250; J1100; J3010; Q9966

== ENCOUNTER → 2020-04-13 | Outpatient (CLI) | payer MEDICARE ==
[2020-04-13 09:44] VITALS: BP 123/67; PULSE 102; RESP 18; TEMP 98.1
--- NOTE | 2020-04-13 10:05 | P.PAINPG ---
Subjective Progress Note Date: 04/13/20 Saira presents for follow-up today secondary to her pain. She reports she had a cervical epidural steroid injection which helped for a couple days. She reports that the injection helped the sharp pain but did not improve her mobility. She is back to normal. She feels that she has very limited range of motion in her neck and shoulders bilaterally. She has pain that goes down both arms throughout the entire arm. There is no dermatomal pattern. She has weakness in both hands which she feels is due to joint pain. She's never had an evaluation of her arms or shoulders. She had a cervical spine computed tomography scan which showed multilevel degeneration. She has pain which began about November of last year. Nothing really has changed since then. She can't really determine what his cause the pain. She denies any lower extremity weakness, bowel or bladder incontinence. She feels that she has pain in all of her joints though. She's never seen a director of student financial services. Objective - Vital Signs Vital signs: Vital Signs Temp 98.1 F 04/13/20 09:41 Pulse 102 H 04/13/20 09:41 Resp 18 04/13/20 09:41 BP 123/67 04/13/20 09:41 Pulse Ox 97 04/13/20 09:41 - Exam General: Awake and alert oriented 3 no distress Respiratory exam: No audible wheezing no accessory muscle usage Cardiovascular exam: regular rate, palpable bilateral pulses, no lower extremity edema Abdominal exam: No distention nontender to palpation Cervical spine: There is normal alignment, there is limited range of motion in all planes. There is pain with raising her arms up. Hernandez's is negative. Pincer grasp is normal. Sensation is normal bilaterally. Shoulder exam: There is very limited range of motion in all planes. Internal rotation is limited to about L5. External rotation is limited significantly. She is unable to abduct the shoulder beyond about 35 secondary to pain. Lumbar spine: There is loss of lordosis of atrophy of the paraspinal muscles. She has an obese midline. She has limited range of motion in flexion and extension. Neuro exam: Normal sensation in bilateral upper extremities, deep tendon reflexes are 2+ bilateral upper extremities. Normal sensation in bilateral lower extremities. Deep tendon reflexes are 2+ in lower extremities Psych exam: Cooperative, appropriate mood Assessment and Plan Assessment: #1 cervical spondylosis without myelopathy #2 polyarthralgia #3 cervical radiculopathy #4 Peripheral neuropathy Plan: After review of the records, examination the patient, in discussion about her symptoms. A rheumatological disorder going on. It cannot a trivial her pain is 2 cervical radiculopathy unfortunately. I believe she has some evidence of cer vical radiculopathy given her computed tomography scan and her symptoms. At this point I would recommend she sees a director of student financial services for evaluation. The injection did not seem to offer any significant benefit, I've offered to repeat it she like to hold off on that. We will start her on gabapentin 300 mg at nighttime. I will give her 2 refills on the medication. I will give her a referral to see a director of student financial services as well. She can follow up with us as needed moving forward. I have spent 35 minutes on patient care today. The time was used to review the medical records including relevant urine studies and Prescription history (MAPs), review of the available imaging, evaluation and examination of the patient, coordination of care with the medical staff and if applicable referring physicians, as well as creation of the medical record. PQRS Measure Charge Sheet Measure #130: Documentation of Current Meds in Medical Chart: Patient's medications documented in chart PQRS Narrative: Smoking Status Former smoker Blood Pressure 123/67 Pain Intensity [Left Arm] 10 Scale Used Numeric (1 - 10) Hx Alcohol Use (MH) No Home Medications: Ambulatory Orders Atorvastatin [Lipitor] 40 mg PO DAILY 11/03/18 Cholecalciferol [Vitamin D3 (25 Mcg = 1000 Iu)] 25 mcg PO DAILY 11/03/18 Omeprazole 20 mg PO DAILY PRN 11/03/18 Solifenacin Succinate [Vesicare] 10 mg PO DAILY 11/03/18 Aspirin 81 mg PO DAILY chew 11/06/18 Metoprolol Succinate (ER) [Toprol XL] 25 mg PO DAILY #30 tab.er.24h 11/06/18 Potassium Chloride ER [K-Dur 20] 20 meq PO DAILY #30 tab 11/06/18 Sacubitril/Valsartan [Entresto 24 mg-26 mg Tablet] 1 tab PO BID 01/11/19 metFORMIN HCL [Glucophage] 500 mg PO W/SUPPER 03/02/20 Acetaminophen [Tylenol 8 Hour] 650 mg PO Q8H PRN 03/23/20 Furosemide [Lasix] 40 mg PO BID 03/23/20 Gabapentin 300 mg PO ONCE 30 Days #30 cap 04/13/20 Controlled Substance Measures - Controlled Substance Measures Is patient prescribed a controlled substance at discharge?: Yes When asked, does pt state using other controlled substances?: No If prescribed controlled substance>3 days was MAPS reviewed?: Yes If Rx opioid, was Start Talking consent form obtained?: Yes If opioid is for acute pain is fill amount 7 days or less?: No Was information provided regarding opioid addiction?: Yes
== END | disposition home or self-care (01) ==
LOC: PNWHC3 09:31
PROVIDERS: ATTEND Hospitalist
DX: M47.22 Other spondylosis with radiculopathy, cervical region (principal); M25.50 Pain in unspecified joint; G62.89 Other specified polyneuropathies; Z87.891 Personal history of nicotine dependence; Z79.891 Long term (current) use of opiate analgesic; Z79.899 Other long term (current) drug therapy; Z79.82 Long term (current) use of aspirin; Z79.84 Long term (current) use of oral hypoglycemic drugs
CPT/HCPCS: 99211

== ENCOUNTER → 2020-08-12 | Outpatient (CLI) | payer MEDICARE ==
[2020-08-12 17:42] LABS: African American GFR (CKD) 45.8 (60.0-200.0); Anion Gap 9.1 mmol/L (4.00-12.00); BUN/Creat Ratio 13.85 Ratio (12.00-20.00); Carbon Dioxide 25.9 mmol/L (21.6-31.8); Chol/HDL Ratio 3.47; LDL Cholesterol,Calculated 86.6 mg/dL (0.0-131.0); Non-African American GFR(CKD) 39.5 (60.0-200.0); Potassium 4.1 mmol/L (3.5-5.5); VLDL Calculation 34.4 mg/dL (5.00-40.00)
== END | disposition home or self-care (01) ==
LOC: LABWHC1 09:18
PROVIDERS: ATTEND Internal Medicine Cardiovascular Disease
DX: E78.2 Mixed hyperlipidemia (principal)
CPT/HCPCS: 36415; 80048; 80061; 84443; 84450; 84460

== ENCOUNTER → 2021-05-29 | Outpatient (CLI) | payer MEDICARE ==
--- NOTE | 2021-05-29 19:28 | BD ---
EXAMINATION TYPE: Axial Bone Density DATE OF EXAM: 05/29/2021 COMPARISON: 2003 CLINICAL HISTORY: 75 year old Female. ICD-10 CODE: M89.9 BONE DISORDER Height: 62 Weight: 211.8 FRAX RISK QUESTIONS: Alcohol (3 or more units per day): no Family History (Parent hip fracture): no Glucocorticoids (More than 3mos): no (Ex: prednisone, prednisolone, methylprednisolone, dexamethasone, and hydrocortisone). History of Fracture in Adulthood: yes Secondary Osteoporosis: 1. Type 1 Diabetes: no 2. Hyperthyroidism: no 3. Menopause before 45: yes 4. Malnutrition: no 5. Chronic liver disease: no Rheumatoid Arthritis: no Current Tobacco Use: no RISK FACTORS HISTORY OF: History of Wrist Fracture: left When: 1979 Surgery to Spine/Hip(right/left)/Wrist (right/left): no Family History of Osteoporosis: yes Active: no Diet low in dairy products/other sources of calcium: yes Postmenopausal woman: yes Lost more than 2 inches in height since high school: yes MEDICATIONS: Additional History: EXAM MEASUREMENTS: Bone mineral densitometry was performed using the [employer]. Bone mineral density as measured about the Lumbar spine is: ----- L1-L4(G/cm2): 1.155 T Score Values are as follows: ----- L1: -1.1 ----- L2: 0.4 ----- L3: -0.3 ----- L4: 0.0 ----- L1-L4: -0.2 Bone mineral density has: increased 6.4 % since study of: 08.11.2003 Bone mineral density about the R hip (g/cm2): 0.871 Bone mineral density about the L hip (g/cm2): 0.831 T Score values are as follows: -----R Neck: -1.2 -----L Neck: -1.5 -----R Total: -0.4 -----L Total: -0.5 Bone mineral density has: decreased -13.3 % since study of: 08.11.2003 FRAX%s: The graph provided illustrates a 16.7 % chance for a major osteoporotic fx and a 3.2% chance for the hips probability for fx in 10 years time. IMPRESSION: Osteopenia (T Score between -2.5 and -1). There is slightly increased risk of fracture and the patient may be considered for treatment. Re-Screen 2-5 years. NOTE: T-SCORE=SD OF THE YOUNG ADULT MEAN.
== END | disposition home or self-care (01) ==
LOC: RADBDWWP 07:03
PROVIDERS: ATTEND Internal Medicine
DX: M85.89 Other specified disorders of bone density and structure, multiple sites (principal)
CPT/HCPCS: 77080

== ENCOUNTER 2021-08-13 20:10 | Emergency (ER) | payer MEDICARE ==
[2021-08-13 20:19] VITALS: PULSE 95; RESP 16; TEMP 97.6
[2021-08-13] MEDS ORDERED: Acetaminophen-Codeine 300-30mg TAB PO STA (21:08)
--- NOTE | 2021-08-13 21:11 | ED ---
General Adult HPI - General Chief complaint: Extremity Problem,Nontraumatic Stated complaint: R Foot Pain Time Seen by Provider: 08/13/21 20:47 Source: patient, EMS, RN notes reviewed, old records reviewed Mode of arrival: EMS - History of Present Illness Initial comments: Patient is a pleasant 76-year-old female presents to the emergency room with complaints of right great toe pain, swelling, and redness. She was recently in the emergency room and treated for an acute gouty flare with noted mild HPI. She completed her course of indomethacin and reports that her symptoms to her left lower extremity resolves. She followed up with her primary care provider who made no medication changes. She continues to be on Entresto for her ischemic cardiomyopathy with an ejection fraction of 30%, Lasix for her congestive heart failure metformin for diabetes along with the potassium supplement. She denies any dietary habits that are high in purines. She is taking Tylenol as needed for pain without good control. She reports that she has previously been advised not to take NSAIDs due to her cardiovascular conditions. She also has a past medical history of COPD, hypertension, hyperlipidemia. She denies any renal failure history. She denies any other complaints or concerns at this time. - Related Data Home Medications Medication Instructions Recorded Confirmed Atorvastatin [Lipitor] 40 mg PO DAILY 11/03/18 07/24/21 Omeprazole 20 mg PO DAILY PRN 11/03/18 07/24/21 Sacubitril/Valsartan [Entresto 24 1 tab PO BID 01/11/19 07/24/21 mg-26 mg Tablet] metFORMIN HCL [Glucophage] 500 mg PO W/SUPPER 03/02/20 07/24/21 Furosemide [Lasix] 40 mg PO BID@0900,1330 03/23/20 07/24/21 Calcium Carbonate [Calcium] 600 mg PO DAILY 07/24/21 07/24/21 Cholecalciferol [Vitamin D3 (25 50 mcg PO DAILY 07/24/21 07/24/21 Mcg = 1000 Iu)] Previous Rx's Medication Instructions Recorded Aspirin 81 mg PO DAILY chew 11/06/18 Metoprolol Succinate (ER) [Toprol 25 mg PO DAILY #30 tab.er.24h 11/06/18 XL] Potassium Chloride ER [K-Dur 20] 20 meq PO DAILY #30 tab 11/06/18 predniSONE 50 mg PO DAILY 5 Days #5 tab 08/13/21 Allergies Allergy/AdvReac Type Severity Reaction Status Date / Time No Known Allergies Allergy Verified 07/24/21 19:36 Review of Systems ROS Statement: Those systems with pertinent positive or pertinent negative responses have been documented in the HPI. ROS Other: All systems not noted in ROS Statement are negative. Past Medical History Past Medical History: Heart Failure, COPD, Diabetes Mellitus, GERD/Reflux, Hyperlipidemia, Hypertension, Musculoskeletal Disorder Additional Past Medical History / Comment(s): Hx Sciatic back pain. Ischemic cardiomyopathy ef of 30%; has [employer] AICD. Neck and bilat arm pain, NT hands. History of Any Multi-Drug Resistant Organisms: None Reported Past Surgical History: Adenoidectomy, AICD, Appendectomy, Cholecystectomy, Heart Catheterization, Heart Catheterization With Stent, Hysterectomy, Tonsillectomy Additional Past Surgical History / Comment(s): Epidural-back pain Inj x2. [place] noscopy. Bilat cataracts removed w/ lens implants Past Anesthesia/Blood Transfusion Reactions: No Reported Reaction Date of Last Stent Placement:: 11/2018 Type of Cardiac Device: AICD Device Placement Date:: 04/2019 Past Psychological History: No Psychological Hx Reported Smoking Status: Former smoker Past Alcohol Use History: None Reported Past Drug Use History: None Reported - Past Family History Mother Family Medical History: No Reported History General Exam General appearance: alert, in no apparent distress Head exam: Present: atraumatic, normocephalic, normal inspection Eye exam: Present: normal appearance, PERRL, EOMI. Absent: scleral icterus, conjunctival injection, periorbital swelling ENT exam: Present: normal exam, mucous membranes moist Neck exam: Present: normal inspection Respiratory exam: Present: normal lung sounds bilaterally. Absent: respiratory distress, wheezes, rales, rhonchi, stridor Cardiovascular Exam: Present: regular rate, normal rhythm, systolic murmur (III/). Absent: rubs, gallop, clicks, JVD GI/Abdominal exam: Present: soft, normal bowel sounds. Absent: distended, tenderness, guarding, rebound, rigid Rectal exam: Present: deferred Extremities exam: Present: tenderness (Right 1st MP joint), normal capillary refill, joint swelling (first MP joint right foot; trace ankle edema right; no edema left), other (erythema 1st 1st MP joint right) Neurological exam: Present: alert, oriented X3, CN II-XII intact Psychiatric exam: Present: normal affect, normal mood Skin exam: Present: dry, intact, other (warmth and erythema right 1st MP joint) Course Vital Signs 08/13/21 08/13/21 20:14 22:00 Temperature 97.6 F Pulse Rate 95 Respiratory 16 Rate Blood Pressure 151/117 103/56 O2 Sat by Pulse 98 95 Oximetry Medical Decision Making - Medical Decision Making No indication for x-ray. Awaiting CMP to evaluate renal function for treatment plan. Concern for continued acute kidney impairment and will likely need treatment of her gout with steroids. Tylenol 3 given for pain without significant relief will give morphine 2 mg and monitor response. Pain with slight improvement with morphine IV. Discussed treatment with plan for treatment with steroids. Will give dose of Solu-Medrol today due to pharmacy being closed and unable to obtain oral steroids into a.m. - Lab Data Result diagrams: 08/13/21 21:38 Lab Results 08/13/21 Range/Units 21:38 WBC 14.8 H (3.8-10.6) k/uL RBC 4.17 (3.80-5.40) m/uL Hgb 12.2 (11.4-16.0) gm/dL Hct 38.9 (34.0-46.0) % MCV 93.3 (80.0-100.0) fL MCH 29.2 (25.0-35.0) pg MCHC 31.3 (31.0-37.0) g/dL RDW 12.8 (11.5-15.5) % Plt Count 177 (150-450) k/uL MPV 8.5 Neutrophils % 86 % Lymphocytes % 4 % Monocytes % 8 % Eosinophils % 0 % Basophils % 0 % Neutrophils # 12.8 H (1.3-7.7) k/uL Lymphocytes # 0.7 L (1.0-4.8) k/uL Monocytes # 1.2 H (0-1.0) k/uL Eosinophils # 0.1 (0-0.7) k/uL Basophils # 0.0 (0-0.2) k/uL Disposition Clinical Impression: Gout Disposition: HOME SELF-CARE Instructions (If sedation given, give patient instructions): Gout (ED) Additional Instructions: Hold next dose of Lasix. Low purine diet encouraged. Please return to the Emergency Department if symptoms worsen or any other concerns. Prescriptions: predniSONE 50 mg PO DAILY 5 Days #5 tab Is patient prescribed a controlled substance at d/c from ED?: No Referrals: Bertha Butler MD [Primary Care Provider] - 1-2 days Time of Disposition: 23:07
[2021-08-13 21:53] LABS: Basophils % (A) 0 %; Eosinophils # (A) 0.1 k/uL (0-0.7); Eosinophils % (A) 0 %; HCT 38.9 % (34.0-46.0); HGB 12.2 gm/dL (11.4-16.0); Lymphocytes # (A) 0.7 k/uL (1.0-4.8); Lymphocytes % (A) 4 %; MCH 29.2 pg (25.0-35.0); MCHC 31.3 g/dL (31.0-37.0); MCV 93.3 fL (80.0-100.0); Mean Platelet Volume 8.5; Monocytes # (A) 1.2 k/uL (0-1.0); Monocytes % (A) 8 %; Neutrophils # (A) 12.8 k/uL (1.3-7.7); Neutrophils % (A) 86 %; Platelet Count 177 k/uL (150-450); RBC 4.17 m/uL (3.80-5.40); RDW 12.8 % (11.5-15.5); WBC 14.8 k/uL (3.8-10.6)
[2021-08-13] MEDS ORDERED: MORPHINE SULFATE 2 MG/ML SYRINGE IVP STA (22:16)
[2021-08-13] MEDS ORDERED: methylPREDNISolone SOD SUCCI 125 MG/2 ML VIAL IV STA (23:03)
[2021-08-13 23:12] LABS: Calcium 8.8 mg/dL (8.4-10.2); Total Bilirubin 1.6 mg/dL (0.2-1.3); Total Protein 6.6 g/dL (6.3-8.2)
[2021-08-13 23:16] LABS: Potassium 3.9 mmol/L (3.5-5.1)
[2021-08-13 23:23] VITALS: BP 121/59
== END 2021-08-13 23:43 | disposition home or self-care (01) ==
LOC: EC 20:10
DX: M10.9 Gout, unspecified (principal); I11.0 Hypertensive heart disease with heart failure; I50.9 Heart failure, unspecified; E11.9 Type 2 diabetes mellitus without complications; J44.9 Chronic obstructive pulmonary disease, unspecified; E78.5 Hyperlipidemia, unspecified; K21.9 Gastro-esophageal reflux disease without esophagitis; Z79.899 Other long term (current) drug therapy; Z79.84 Long term (current) use of oral hypoglycemic drugs
CPT/HCPCS: 36415; 80053; 85025; 99284; 96374; 96375; J2930; J2270

== ENCOUNTER → 2021-08-21 | Outpatient (CLI) | payer MEDICARE ==
--- NOTE | 2021-08-21 14:32 | XR ---
Right foot HISTORY: Pain in right foot 2 views the right foot Bone mineralization is reduced. Question some soft tissue calcification adjacent to the first digit. No significant joint space loss. Alignment is maintained. There is plantar calcaneus spur. Enthesophy te present at the insertion of Achilles tendon. Vascular calcifications are noted. IMPRESSION: Indeterminate soft tissue calcifications first digit. Osteopenia. Possible peripheral vas cular occlusive disease, correlate for possible underlying diabetes. Additional findings above.
== END | disposition home or self-care (01) ==
LOC: RADXRMAIN 11:45
PROVIDERS: ATTEND Internal Medicine
DX: M79.671 Pain in right foot (principal); M77.31 Calcaneal spur, right foot

== ENCOUNTER → 2022-09-18 | Outpatient (CLI) | payer MEDICARE ==
[2022-09-19 02:55] LABS: BUN/Creat Ratio 18.93 Ratio (12.00-20.00); Blood Urea Nitrogen 26.5 mg/dL (9.0-27.0); Calcium 9.8 mg/dL (8.7-10.3); Carbon Dioxide 25.5 mmol/L (21.6-31.8); Chloride 104 mmol/L (96-109); Glucose 124 mg/dL (70-110); Potassium 4.9 mmol/L (3.5-5.5); Sodium 141 mmol/L (135-145)
== END | disposition home or self-care (01) ==
LOC: LABWHC1 15:41
PROVIDERS: ATTEND Internal Medicine Cardiovascular Disease
DX: I47.29 Other ventricular tachycardia (principal)
CPT/HCPCS: 36415; 80048; 84443

== ENCOUNTER → 2022-10-09 | Outpatient (CLI) | payer MEDICARE | END | disposition home or self-care (01) | LOC: LABWHC1 15:02 | PROVIDERS: ATTEND Family Medicine | DX: E11.9 Type 2 diabetes mellitus without complications (principal) | CPT/HCPCS: 36415; 83036 ==

== ENCOUNTER → 2023-09-09 | Outpatient (CLI) | payer MEDICARE ==
[2023-09-09 16:15] LABS: ALT 14 U/L (8-44); AST 19 U/L (13-35); BUN/Creat Ratio 18.89 Ratio (12.00-20.00); Blood Urea Nitrogen 35.9 mg/dL (9.0-27.0); Calcium 9.9 mg/dL (8.7-10.3); Chloride 104 mmol/L (96-109); Chol/HDL Ratio 3.56 Ratio; Glucose 142 mg/dL (70-110); LDL Cholesterol,Calculated 86.5 mg/dL (0.0-131.0); Magnesium 1.9 mg/dL (1.5-2.4); Potassium 4.6 mmol/L (3.5-5.5); Sodium 141 mmol/L (135-145)
== END | disposition home or self-care (01) ==
LOC: LABWHC1 08:12
PROVIDERS: ATTEND Internal Medicine Cardiovascular Disease
DX: E78.2 Mixed hyperlipidemia (principal)
CPT/HCPCS: 36415; 80048; 80061; 83735; 84443; 84450; 84460

== ENCOUNTER 2023-10-22 22:00 | Observation (INO) | payer MEDICARE ==
[~2023-10-22 22:00] MED LIST changes: -HYDROmorphone 0.5 MG/0.5 ML SYRINGE IVP PRN; -MIDAZOLAM 2 MG/2 ML VIAL IV PRN; +ONDANSETRON 4 MG/2 ML VIAL ONE; +SODIUM CHLORIDE 0.9% 1,000 ML BAG ONE
[2023-10-23] MEDS ORDERED: LOPERAMIDE 2 MG CAP ONE (02:41)
[2023-10-23] MEDS ORDERED: POTASSIUM CHLORIDE 100 ML ONE ×2 (15:20→16:37)
[2023-10-23] MEDS ORDERED: POTASSIUM CHLORIDE ER 20 MEQ TAB.ER PO ONE ×2 (15:30→16:37)
[2023-10-23] MEDS ORDERED: DEXTROSE 5% IN WATER 1,000 ML BAG ONE (23:59)
[2023-10-23] MEDS ORDERED: SODIUM CHLORIDE 0.9% 1,000 ML BAG ONE (23:59)
[2023-10-23] MEDS ORDERED: SODIUM BICARB 8.4% 50 ML VIAL (1 MEQ/ML) ONE (23:59)
[2023-10-24] MEDS ORDERED: MAGNESIUM SULFATE-D5W PMX 100 ML IVPB ONE ×2 (02:06→03:13)
[2023-10-24] MEDS ORDERED: POTASSIUM CHLORIDE 100 ML ONE ×4 (04:11→07:52)
[2023-10-24] MEDS ORDERED: ASPIRIN 81 MG ONE (08:51)
[2023-10-24] MEDS ORDERED: ATORVASTATIN 20 MG TAB ONE ×2 (08:51→09:08)
[2023-10-24] MEDS ORDERED: ENOXAPARIN 30 MG/0.3 ML SYRINGE SQ ONE (08:52)
[2023-10-24] MEDS ORDERED: HEPARIN SODIUM,PORCINE 5,000 UNIT/ML 1 ML VIAL ONE ×2 (14:41→20:52)
[2023-10-24] MEDS ORDERED: INSULIN ASPART (NovoLOG) 100 UNIT/ML VIAL SQ ONE (23:59)
[2023-10-24] MEDS ORDERED: DEXTROSE 5% IN WATER 1,000 ML BAG ONE (23:59)
[2023-10-24] MEDS ORDERED: SODIUM BICARB 8.4% 50 ML VIAL (1 MEQ/ML) ONE (23:59)
[2023-10-25] MEDS ORDERED: HEPARIN SODIUM,PORCINE 5,000 UNIT/ML 1 ML VIAL ONE (06:21)
[2023-10-25] MEDS ORDERED: ATORVASTATIN 20 MG TAB ONE (08:46)
[2023-10-25] MEDS ORDERED: ASPIRIN 81 MG ONE (08:46)
[2023-10-25] MEDS ORDERED: AMIODARONE 200 MG TAB ONE (08:47)
[2023-10-25] MEDS ORDERED: allopurinoL 100 MG TAB ONE (08:47)
[2023-10-25] MEDS ORDERED: METOPROLOL TARTRATE 50 MG TAB ONE (08:47)
[2023-10-25] MEDS ORDERED: SODIUM BICARB 8.4% 50 ML VIAL (1 MEQ/ML) ONE (12:00)
[2023-10-25] MEDS ORDERED: DEXTROSE 5% IN WATER 1,000 ML BAG ONE (12:00)
--- NOTE | 2023-11-20 15:20 | US ---
Tsering Luna ID: [id number] : 1945 EXAMINATION TYPE: US kidneys/renal and bladder DATE OF EXAM: 10/23/2023 Comparison: None Clinical History: 78-year-old female acute kidney injury TECHNIQUE: Multiple sonographic images of the kidneys and bladder are obtained. Findings: The right and left kidneys measure 9.2 and 9.1 cm, respectively, without hydronephrosis. There is sahra ateral renal cortical thinning present. Partial distention of the bladder limits its evaluation. Neither of the ureteral jets are seen during the course of the exam. Impression: Changes of chronic medical renal disease. No hydronephrosis on either side.
== END 2023-10-25 13:50 | disposition home or self-care (01) ==
LOC: EC 22:00 → DISRECOVER 23:08
PROVIDERS: ADMIT Internal Medicine; ATTEND Internal Medicine
DX: N17.0 Acute kidney failure with tubular necrosis (principal); E86.0 Dehydration; R19.7 Diarrhea, unspecified; E87.20 Acidosis, unspecified; R11.2 Nausea with vomiting, unspecified; D64.9 Anemia, unspecified; E87.6 Hypokalemia; I11.0 Hypertensive heart disease with heart failure; I50.9 Heart failure, unspecified; E78.5 Hyperlipidemia, unspecified; E11.9 Type 2 diabetes mellitus without complications; K21.9 Gastro-esophageal reflux disease without esophagitis; I25.10 Atherosclerotic heart disease of native coronary artery without angina pectoris; Z87.891 Personal history of nicotine dependence; Z95.0 Presence of cardiac pacemaker
CPT/HCPCS: 76770; 99285

== ENCOUNTER → 2023-12-03 | Outpatient (CLI) | payer MEDICARE ==
[2023-12-03 15:12] LABS: HCT 34.4 % (37.2-46.3); HGB 10.9 g/dL (12.0-15.0); MCH 32.6 pg (27.0-32.0); MCHC 31.7 g/dL (32.0-37.0); NRBC Per 100 WBC 0 X 10*3/uL (0.00-0.01); Platelet Count 173 X 10*3/uL (140-440); RBC 3.34 X 10*6/uL (4.10-5.20); RDW 14.5 % (11.5-14.5)
[2023-12-03 15:32] LABS: ALT 11 U/L (8-44); AST 16 U/L (13-35); Albumin 4.1 g/dL (3.8-4.9); Albumin/Globulin Ratio 1.78 Ratio (1.60-3.17); Alkaline Phosphatase 73 U/L (41-126); Blood Urea Nitrogen 32.6 mg/dL (9.0-27.0); Calcium 9.4 mg/dL (8.7-10.3); Carbon Dioxide 22.4 mmol/L (21.6-31.8); Chloride 105 mmol/L (96-109); Globulin 2.3 g/dL (1.6-3.3); Glucose 136 mg/dL (70-110); Phosphorus 3.8 mg/dL (2.4-5.1); Potassium 4.3 mmol/L (3.5-5.5); Sodium 140 mmol/L (135-145); Total Bilirubin 0.4 mg/dL (0.3-1.2); Total Protein 6.4 g/dL (6.2-8.2)
== END | disposition home or self-care (01) ==
LOC: LABWHC1 11:06
PROVIDERS: ATTEND Internal Medicine Nephrology
DX: N18.32 Chronic kidney disease, stage 3b (principal)
CPT/HCPCS: 36415; 80053; 83735; 84100; 85027

== ENCOUNTER → 2023-12-24 | Outpatient (CLI) | payer MEDICARE | END | disposition home or self-care (01) | LOC: LABWHC1 12:13 | PROVIDERS: ATTEND Internal Medicine Cardiovascular Disease | DX: I47.20 Ventricular tachycardia, unspecified (principal) | CPT/HCPCS: 36415; 84443; 84450; 84460 ==

== ENCOUNTER → 2023-12-25 | Outpatient (CLI) | payer MEDICARE ==
[2023-12-25 19:54] LABS: Appearance,Urine Cloudy (Clear); Bilirubin,Urine Negative (Negative); Blood,Urine Trace (Negative); Color,Urine Yellow (Yellow); Ketones,Urine Negative (Negative); Nitrite,Urine Positive (Negative); Specific Gravity,Urine 1.011 (1.001-1.030); Urobilinogen,Urine 0.2 E.U./DL
[2023-12-25 20:05] LABS: Bacteria,Urine 4+ (None Seen)
[2023-12-25 20:30] LABS: BUN/Creat Ratio 15.38 Ratio (12.00-20.00); Blood Urea Nitrogen 32.3 mg/dL (9.0-27.0); Calcium 9.3 mg/dL (8.7-10.3); Carbon Dioxide 21.7 mmol/L (21.6-31.8); Chloride 103 mmol/L (96-109); Glucose 107 mg/dL (70-110); Potassium 4.7 mmol/L (3.5-5.5); Sodium 140 mmol/L (135-145)
[2023-12-25 21:37] LABS: Urine Creatinine 46.5 mg/dL (28.0-217.0)
== END | disposition home or self-care (01) ==
LOC: LABWHC1 14:08
PROVIDERS: ATTEND Internal Medicine
CPT/HCPCS: 36415; 80048; 81001; 82043; 82570

== ENCOUNTER → 2024-04-02 | Outpatient (CLI) | payer MEDICARE ==
[2024-04-02 18:44] LABS: Basophils # (A) 0.06 X 10*3/uL (0.00-0.10); Basophils % (A) 0.9 %; Eosinophils # (A) 0.27 X 10*3/uL (0.04-0.35); HCT 36.3 % (37.2-46.3); HGB 11.1 g/dL (12.0-15.0); Lymphocytes # (A) 1.19 X 10*3/uL (0.90-5.00); Lymphocytes % (A) 17.7 %; MCH 30.9 pg (27.0-32.0); MCHC 30.6 g/dL (32.0-37.0); MCV 101.1 FL (80.0-97.0); Mean Platelet Volume 10.6 FL (9.5-12.2); Monocytes # (A) 0.84 X 10*3/uL (0.20-1.00); Monocytes % (A) 12.5 %; NRBC Per 100 WBC 0 X 10*3/uL (0.00-0.01); Neutrophils # (A) 4.36 X 10*3/uL (1.80-7.70); Neutrophils % (A) 64.8 %; Platelet Count 183 X 10*3/uL (140-440); RBC 3.59 X 10*6/uL (4.10-5.20); WBC 6.73 X 10*3/uL (4.50-10.00)
[2024-04-02 19:26] LABS: % Iron Saturation 17.37 (12.00-45.00); Blood Urea Nitrogen 30.4 mg/dL (9.0-27.0); Calcium 9.6 mg/dL (8.7-10.3); Carbon Dioxide 25.7 mmol/L (21.6-31.8); Chloride 106 mmol/L (96-109); Ferritin 31.1 ng/mL (10.0-291.0); Glucose 110 mg/dL (70-110); Iron 82 UG/DL (50-170); Magnesium 2.4 mg/dL (1.5-2.4); Sodium 144 mmol/L (135-145); Total Iron Binding Capacity 472 UG/DL (228-460)
== END | disposition home or self-care (01) ==
LOC: LABWHC1 11:40
PROVIDERS: ATTEND Nurse Practitioner Family
DX: E55.9 Vitamin D deficiency, unspecified (principal); N18.4 Chronic kidney disease, stage 4 (severe); N25.81 Secondary hyperparathyroidism of renal origin; D64.9 Anemia, unspecified; R80.9 Proteinuria, unspecified
CPT/HCPCS: 36415; 80048; 82043; 82306; 82570; 82728; 83540; 83550; 83735; 83970; 84100; 85025

== ENCOUNTER → 2024-09-14 | Outpatient (CLI) | payer MEDICARE ==
[2024-09-14 16:03] LABS: Basophils # (A) 0.07 X 10*3/uL (0.00-0.10); Basophils % (A) 0.8 %; Eosinophils # (A) 0.38 X 10*3/uL (0.04-0.35); Eosinophils % (A) 4.3 %; HCT 35.3 % (37.2-46.3); HGB 11.0 g/dL (12.0-15.0); Immature Grans, Automated 0.20 %; Lymphocytes # (A) 1.80 X 10*3/uL (0.90-5.00); Lymphocytes % (A) 20.4 %; MCH 31.3 pg (27.0-32.0); MCHC 31.2 g/dL (32.0-37.0); MCV 100.3 FL (80.0-97.0); Monocytes # (A) 0.77 X 10*3/uL (0.20-1.00); Monocytes % (A) 8.7 %; NRBC Per 100 WBC 0 X 10*3/uL (0.00-0.01); Neutrophils # (A) 5.77 X 10*3/uL (1.80-7.70); Neutrophils % (A) 65.6 %; Platelet Count 207 X 10*3/uL (140-440); RBC 3.52 X 10*6/uL (4.10-5.20); RDW 15.1 % (11.5-14.5); WBC 8.81 X 10*3/uL (4.50-10.00)
[2024-09-14 16:06] LABS: ALT 12 U/L (8-44); AST 18 U/L (13-35); Anion Gap 15.40 mmol/L (4.00-12.00); BUN/Creat Ratio 15.14 Ratio (12.00-20.00); Blood Urea Nitrogen 31.8 mg/dL (9.0-27.0); Calcium 9.1 mg/dL (8.7-10.3); Carbon Dioxide 23.6 mmol/L (21.6-31.8); Chloride 104 mmol/L (96-109); Cholesterol 153.00 mg/dL (0.00-200.00); Ferritin 116.0 ng/mL (10.0-291.0); Glucose 127 mg/dL (70-110); HDL Cholesterol 54.80 mg/dL (40.00-60.00); Iron 75 UG/DL (50-170); LDL Cholesterol,Calculated 75.2 mg/dL (0.0-131.0); Magnesium 2.0 mg/dL (1.5-2.4); Potassium 3.8 mmol/L (3.5-5.5); Sodium 143 mmol/L (135-145); Total Iron Binding Capacity 332 UG/DL (228-460); Triglycerides 115.00 mg/dL (0.00-149.00); Uric Acid 6.6 mg/dL (2.9-7.7); VLDL Calculation 23.00 mg/dL (5.00-40.00)
== END | disposition home or self-care (01) ==
LOC: LABWHC1 09:23
PROVIDERS: ATTEND Internal Medicine Cardiovascular Disease
DX: I25.5 Ischemic cardiomyopathy (principal); E78.2 Mixed hyperlipidemia; N18.4 Chronic kidney disease, stage 4 (severe)
CPT/HCPCS: 36415; 80048; 80061; 82306; 82728; 83540; 83550; 83735; 83970; 84100; 84443; 84450; 84460; 84550; 85025